=== PATIENT | male | born 1960 | race Hispanic/Latino ===

== ENCOUNTER 2016-11-23 07:49 | Inpatient (IN) | payer OTHER ==
[2016-11-23] MEDS ORDERED: NITROSTAT SL ONE (08:09)
[2016-11-23] MEDS ORDERED: TYLENOL PO ONE (08:16)
[2016-11-23] MEDS: NITROSTAT SL PRN ×2 (08:25→08:39)
--- NOTE | 2016-11-23 08:36 | Emergency Department Report ---
ED Chest Pain HPI - General Chief Complaint: Chest Pain Stated Complaint: CHEST PAIN Time Seen by Provider: 11/23/16 08:10 Source: patient Mode of arrival: Stretcher Limitations: No Limitations - History of Present Illness Initial Comments: 56-year-old male presents to the emergency department via EMS complaining of chest pain. Patient reports onset of midsternal chest pain after an argument with his at approximately 7 AM this morning. Patient describes a steady pain in the center of his chest that does not radiate. He reports associated nausea, but denies shortness of breath, dizziness, diaphoresis. He states the pain feels the same as his previous heart attack. He did take 4 baby aspirin and 1 sublingual nitroglycerin this morning. Patient states that one week ago he was admitted to [facility] in for [facility] for an NM. He received 2 cardiac stents. He states he was subsequently taken back to the [facility] for clot retrieval and had to be defibrillated 1 time. He states he was discharged from the hospital 3 days ago. There are no other complaints. MD Complaint: chest pain -: Sudden Time: 07:00 Onset: during rest Pain Location: substernal Pain Radiation: none Severity: severe Severity scale (0 -10): 10 Quality: similar to prior NM Consistency: constant Improves With: nothing Worsens With: nothing re: nausea. denies: vomting, diaphoresis, dyspnea Treatments Prior to Arrival: aspirin Aspirin use within the Past 7 Days: (1) Yes - Related Data Previous Rx's Medication Instructions Recorded Last Taken Type Acetaminophen/Codeine [Tylenol #3] 1 tab PO Q6H PRN #15 tab 11/27/15 Unknown Rx Allergies Allergy/AdvReac Type Severity Reaction Status Date / Time No Known Allergies Allergy Unverified 11/27/15 12:06 ILEANA score - Ileana Score Age > 65: (0) No Aspirin use within the Past 7 Days: (1) Yes 3 or more CAD Risk Factors: (0) No 2 or more Angina events in past 24 hrs: (0) No Known CAD with more than 50% Stenosis: (1) Yes Elevated Cardiac Markers: (1) Yes ST Deviation Greater than 0.5mm: (1) Yes ILEANA Score: 4 ED Review of Systems ROS: Stated complaint: CHEST PAIN Other details as noted in HPI Comment: All other systems reviewed and negative Cardiovascular: chest pain Gastrointestinal: nausea ED Past Medical Hx - Past Medical History Previous Medical History?: Yes Hx Hypertension: Yes Hx Heart Attack/AMI: Yes (stents) - Surgical History Hx Coronary Stent: Yes (x 19 October 2016) - Family History Family history: no significant - Social History Smoking Status: Current Every Day Smoker Substance Use Type: Alcohol - Medications Home Medications: Home Medications Medication Instructions Recorded Confirmed Last Taken Type Acetaminophen/Codeine [Tylenol #3] 1 tab PO Q6H PRN #15 tab 11/27/15 Unknown Rx ED Physical Exam - General Limitations: No Limitations General appearance: alert, in no apparent distress - Head Head exam: Present: atraumatic, normocephalic - Eye Eye exam: Present: normal appearance, PERRL, EOMI - ENT ENT exam: Present: normal exam, normal orophraynx, mucous membranes moist - Neck Neck exam: Present: normal inspection, full ROM. Absent: tenderness - Respiratory Respiratory exam: Present: normal lung sounds bilaterally. Absent: respiratory distress - Cardiovascular Cardiovascular Exam: Present: regular rate, normal rhythm, normal heart sounds - GI/Abdominal GI/Abdominal exam: Present: soft, normal bowel sounds. Absent: distended, tenderness - Extremities Exam Extremities exam: Present: normal inspection, full ROM. Absent: tenderness - Back Exam Back exam: Present: normal inspection, full ROM. Absent: tenderness - Neurological Exam Neurological exam: Present: alert, oriented X3. Absent: motor sensory deficit - Skin Skin exam: Present: warm, dry, intact ED Course Vital Signs 11/23/16 11/23/16 11/23/16 08:05 08:25 08:39 Temperature 98.1 F Pulse Rate 93 H 93 H 96 H Respiratory 26 H Rate Blood Pressure 144/94 144/94 138/91 O2 Sat by Pulse 96 Oximetry - Reevaluation(s) Reevaluation #1: 11/23/16 09:08 Further history obtained from the patient reveals that he has not been taking any of his antiplatelets medication that was prescribed and upon discharge from the other hospital. Cardiology recommendations are to administer a heparin bolus and started heparin drip. Most likely, the patient will be taken to the [facility]. Reevaluation #2: 11/23/16 09:20 Repeat EKG shows persistent elevation in 1 and aVL with depressions in 3 and aVF. - Consultations Consultation #1: 11/23/16 08:49 EKG was discussed with Dr. Shields, on-call real estate administrative assistant. He has reviewed the EKG. Code STEMI has not been activated at this time, but he states he will come see the patient in the emergency department. ED Medical Decision Making - Lab Data Result diagrams: 11/23/16 08:23 11/23/16 08:23 - EKG Data -: EKG Interpreted by Me EKG shows normal: sinus rhythm, axis, intervals, QRS complexes Rate: normal - EKG Data When compared to previous EKG there are: previous EKG unavailable 11/23/16 08:48 Less than [address] elevation in leads [address] depression leads 3 and aVF. Critical care attestation.: If time is entered above; I have spent that time in minutes in the direct care of this critically ill patient, excluding procedure time. ED Disposition Clinical Impression: Unstable angina Disposition: OP ADMITTED IP TO THIS HOSP Is pt being admited?: Yes Condition: Stable Instructions: Angina (ED) Referrals: PRIMARY CARE, [Primary Care Provider] - 3-5 Days Time of Disposition: 09:10
[2016-11-23 08:46] LABS: Basophils % (Auto) 0.9 % (0.0-1.8); Eosinophils % (Auto) 2.2 % (0.0-4.3); Hematocrit 40.8 % (35.5-45.6); Hemoglobin 13.4 gm/dl (11.8-15.2); Mean Corpuscular HGB Conc 33 % (32-34); Mean Corpuscular Hemoglobin 29 pg (28-32); Mean Corpuscular Volume 87 fl (84-94); Platelet Count 260 K/mm3 (140-440); Red Cell Distribution Width 15.5 % (13.2-15.2); White Blood Count 8.8 K/mm3 (4.5-11.0)
[2016-11-23 08:53] LABS: Anion Gap 17 mmol/L; BUN/Creatinine Ratio 11.66; Blood Urea Nitrogen 7 mg/dL (9-20); Calcium 8.6 mg/dL (8.4-10.2); Carbon Dioxide 24 mmol/L (22-30); Chloride 98.4 mmol/L (98-107); Glucose 94 mg/dL (75-100); Sodium 135 mmol/L (137-145)
[2016-11-23] MEDS ORDERED: HEPARIN 10,000 UNITS/10 ML IV ONE (09:03)
--- NOTE | 2016-11-23 09:15 | History and Physical Report ---
History of Present Illness Date of examination: 11/23/16 Date of admission: 11/23/16 Chief complaint: Left-sided chest pain since 7 AM today History of present illness: Chest pain since 7 AM today Very pleasant 56-year-old male patient with significant past medical history of coronary artery disease status post PCI with 2 stents on 11/16/2016 as well as clot removal [facility], is admitted to the emergency room with the left-sided chest pain since this morning Patient also has history of alcohol and tobacco use grades his chest pain between 5-7/10, pressure squeezing type associated with mild nausea no vomiting and shortness of breath, not associated with any radiation no aggravating or relieving factors Patient was recently discharged on 11/19/2016 from the hospital and has not been on medication since. Patient's cardiac enzymes were positive, evaluated by admitting officer and patient is scheduled for heart catheterization Denies any fever no urinary symptoms Past History Past Medical History: CAD, hypertension, hyperlipidemia Past Surgical History: PTCA Social history: lives with family, smoking, alcohol abuse, full code Family history: hypertension Medications and Allergies Allergies Allergy/AdvReac Type Severity Reaction Status Date / Time No Known Allergies Allergy Unverified 11/27/15 12:06 Home Medications Medication Instructions Recorded Confirmed Last Taken Type Acetaminophen/Codeine [Tylenol #3] 1 tab PO Q6H PRN #15 tab 11/27/15 Unknown Rx Active Meds: Active Medications Heparin Sodium/Sodium Chloride (Heparin/ 0.45% Nacl-25,000 Unit/500 Ml) 500 mls @ 20.276 mls/hr IV TITRATE SHAQ; 15 UNITS/KG/HR PRN Reason: Protocol Nitroglycerin (Nitrostat) 0.4 mg SL .Q5MIN PRN PRN Reason: Chest Pain Last Admin: 11/23/16 08:39 Dose: 0.4 mg Review of Systems Constitutional: no weight loss, no weight gain, no fever, no chills Ears, nose, mouth and throat: no nasal congestion, no nasal discharge Cardiovascular: chest pain, shortness of breath, no orthopnea, no palpitations Respiratory: shortness of breath, no cough with sputum Gastrointestinal: nausea, no abdominal pain, no vomiting Genitourinary Male: no dysuria, no hematuria Musculoskeletal: no myalgias, no arthritis Integumentary: no rash, no lesions Neurological: no parathesias, no numbness, no seizures Psychiatric: no anxiety, no depression Endocrine: no cold intolerance, no heat intolerance, no polydipsia, no polyuria Hematologic/Lymphatic: no easy bruising, no easy bleeding Allergic/Immunologic: no urticaria, no allergic rhinitis Exam - Constitutional Vitals: Temp Pulse Resp BP Pulse Ox 98.1 F 96 H 26 H 138/91 96 11/23/16 08:05 11/23/16 08:39 11/23/16 08:05 11/23/16 08:39 11/23/16 08:05 General appearance: Present: mild distress, well-nourished - EENT Eyes: Present: PERRL, EOM intact - Neck Neck: Present: supple, normal ROM - Respiratory Respiratory effort: normal Respiratory: bilateral: diminished, rales, negative: rhonchi, wheezing - Cardiovascular Rhythm: regular Heart Sounds: Present: S1 & S2 - Extremities Extremities: no ischemia, pulses intact, pulses symmetrical Peripheral Pulses: within normal limits - Abdominal General gastrointestinal: Present: soft, non-tender, non-distended, normal bowel sounds - Integumentary Integumentary: Present: clear, warm - Musculoskeletal Musculoskeletal: strength equal bilaterally - Psychiatric Psychiatric: appropriate mood/affect, cooperative - Neurologic Neurologic: CNII-XII intact, moves all extremities Results - Labs CBC & Chem 7: 11/23/16 08:23 11/23/16 08:23 Labs: Abnormal lab results 11/23/16 11/23/16 Range/Units 08:23 08:23 RDW 15.5 H (13.2-15.2) % [place] % (Auto) 13.2 H (0.0-7.3) % [place] # 1.2 H (0.0-0.8) K/mm3 Sodium 135 L (137-145) mmol/L BUN 7 L (9-20) mg/dL Creatinine 0.6 L (0.8-1.5) mg/dL Troponin T 0.272 H* (0.00-0.029) ng/mL Assessment and Plan --Non-ST elevation WI Aspirin, Plavix, beta blockers, sindy inhibitors, nitrates, heparin drip Morphine, cardiology evaluation for Heart cath, supportive care --History of coronary artery disease status post PCI 2 Continue current cardiac medications --Dyslipidemia Resume lipid-lowering medication low-cholesterol diet --Hypertension moderate control Continue current antihypertensive medications and when necessary hydralazine --Ongoing tobacco use Smoking cessation counseling done this and consequences of ongoing tobacco use explained to the patient, advised nicotine patch, spent 8 minutes counseling the patient --Alcohol abuse Patient counseled to quit alcohol intake, closely monitor for alcohol withdrawal symptoms CIWA protocol as needed, thiamine folic acid --DVT prophylaxis Patient is already on heparin drip Physical closely monitor the patient and adjust management as needed Plan of care discussed with the patient, his nurse as well as the ER physician
--- NOTE | 2016-11-23 09:29 | Consultation ---
<JOSE LUIS LECHUGA - Last Filed: 11/23/16 09:37> History of Present Illness Consult date: 11/23/16 Requesting physician: GINA VILLALPANDO Consult reason: chest pain, elevated troponin History of present illness: The patient is a 56 YO male with a past medical history significant for CAD, s/p OR with subsequent PCI (2 stents total) last , 11/16/2016, followed by "clot removal" and "defibrillation for bottom chamber quivering" on 11/17/2016, at [facility], HTN, ETOH use (drinks 12 beers daily) and tobacco use (1PPD x 45 years). He is previously unknown to our practice. He presented with c/o chest pain since 0700AM. He states that he awoke in his normal state of health this AM and cooked breakfast. Around 0700, his began to argue with him and he noted sudden onset, midsternal, nonexertional, nonradiating, constant chest pressure. The chest pain was associated with intermittent SOB and nausea. The pain is reportedly worse than the pain he experienced last week prior to his PCI. The patient reports that since discharge from [facility] last Sunday (11/19/2016), he has not taken any prescription medications - only ASA 81mg intermittently. The patient denies any aggravating or alleviating factors. He denies any palpitations, diaphoresis, vomiting, dizziness, or syncope. Past History Past Medical History: CAD, hypertension Past Surgical History: No surgical history Social history: , lives with family, smoking, alcohol abuse. denies: prescription drug abuse Family history: CAD (Mother had CABG at ~70 YOA) Medications and Allergies Allergies Allergy/AdvReac Type Severity Reaction Status Date / Time No Known Allergies Allergy Unverified 11/27/15 12:06 Home Medications Medication Instructions Recorded Confirmed Last Taken Type Acetaminophen/Codeine [Tylenol #3] 1 tab PO Q6H PRN #15 tab 11/27/15 Unknown Rx Active Meds: Active Medications Heparin Sodium/Sodium Chloride (Heparin/ 0.45% Nacl-25,000 Unit/500 Ml) 25,000 unit in 500 mls @ 20 mls/hr IV TITRATE SHAQ; 1,000 UNITS/HR PRN Reason: Protocol Nitroglycerin (Nitrostat) 0.4 mg SL .Q5MIN PRN PRN Reason: Chest Pain Last Admin: 11/23/16 08:39 Dose: 0.4 mg Review of Systems Constitutional: no weight loss, no weight gain, no fever, no chills, no sweats Ears, nose, mouth and throat: no ear pain, no nose pain, no nasal congestion, no sinus pressure, no sinus pain, no mouth pain, no dysphagia, no hoarseness, no sore throat Cardiovascular: chest pain, shortness of breath, high blood pressure, no orthopnea, no palpitations, no rapid/irregular heart beat, no edema, no syncope , no lightheadedness, no dyspnea on exertion Respiratory: shortness of breath, no cough, no dyspnea on exertion, no congestion, no wheezing, no pain Gastrointestinal: nausea, no abdominal pain, no vomiting, no diarrhea, no constipation, no change in bowel habits Genitourinary Male: no dysuria, no hematuria, no flank pain, no discharge, no urinary frequency, no urinary hesitancy Musculoskeletal: no neck stiffness, no neck pain, no shooting arm pain, no arm numbness/tingling, no low back pain, no shooting leg pain, no leg numbness/ tingling, no redness of joints, no limitation of motion Integumentary: no rash, no pruritis, no redness, no sores, no wounds Neurological: no head injury, no paralysis, no weakness, no parathesias, no numbness, no tingling, no seizures, no syncope Endocrine: no cold intolerance, no heat intolerance Hematologic/Lymphatic: no easy bruising, no easy bleeding, no lymphadenopathy Allergic/Immunologic: no urticaria, no wheezing, no persistent infections Physical Examination Last Vital Signs Temp 98.1 F 11/23/16 08:05 Pulse 96 H 11/23/16 08:39 Resp 26 H 11/23/16 08:05 BP 138/91 11/23/16 08:39 Pulse Ox 96 11/23/16 08:05 General appearance: no acute distress HEENT: Positive: PERRL, Normocephaly, Mucus Membranes Moist Neck: Positive: neck supple, trachea midline Cardiac: Positive: Reg Rate and Rhythm, S1/S2 Lungs: Positive: Normal Exam, clear to auscultation, Normal Breath Sounds Neuro: Positive: Grossly Intact, Cranial Nerve 2-12 Intact Abdomen: Positive: Unremarkable, Soft, Active Bowel Sounds. Negative: Tender Skin: Positive: Clear. Negative: Rash, Wound Musculoskeletal: No Fluid Collection, No Pain, Normal Range of Motion Extremities: Present: normal, upper extr. pulses, lower extr. pulses. Absent: edema Results 11/23/16 08:23 11/23/16 08:23 CBC 11/23/16 Range/Units 08:23 WBC 8.8 (4.5-11.0) K/mm3 RBC 4.70 (3.65-5.03) M/mm3 Hgb 13.4 (11.8-15.2) gm/dl Hct 40.8 (35.5-45.6) % Plt Count 260 (140-440) K/mm3 Lymph # 1.7 (1.2-5.4) K/mm3 [place] # 1.2 H (0.0-0.8) K/mm3 Eos # 0.2 (0.0-0.4) K/mm3 Baso # 0.1 (0.0-0.1) K/mm3 Comprehensive Metabolic Panel 11/23/16 Range/Units 08:23 Sodium 135 L (137-145) mmol/L Potassium 4.0 (3.6-5.0) mmol/L Chloride 98.4 (98-107) mmol/L Carbon Dioxide 24 (22-30) mmol/L BUN 7 L (9-20) mg/dL Creatinine 0.6 L (0.8-1.5) mg/dL Glucose 94 (75-100) mg/dL Calcium 8.6 (8.4-10.2) mg/dL - Imaging and Cardiology EKG: report reviewed EKG interpretations - Telemetry EKG Rhythm: Sinus Rhythm - EKG Sinus rhythms and dysrhythmias: sinus rhythm Repolarization changes or abnormalities: ST or T wave suggestive of ischemia Myocardial infarction: septal OR (old age or ind, anterior OR (old age or i Assessment and Plan Assessment: NSTEMI - 1st troponin 0.272. CAD, s/p PCI HTN Tobacco use / ETOH use - cessation encouraged. Noncompliance with medication regimen Plan: Initiate heparin gtt with initial bolus. Plan for coronary angiography today. Await findings. Indications, potential risks, and benefits of LHC reviewed with pt. Pt is agreeable to proceed with LHC. Consents obtained. Assessment and plan reviewed with pt at bedside. The patient has been seen in conjunction with Dr. Shields who agrees with the assessment and plan of care. <LUIS M SHIELDS R - Last Filed: 11/23/16 10:02> Medications and Allergies Active Meds: Active Medications Heparin Sodium/Sodium Chloride (Heparin/ 0.45% Nacl-25,000 Unit/500 Ml) 25,000 unit in 500 mls @ 20 mls/hr IV TITRATE SHAQ; 1,000 UNITS/HR PRN Reason: Protocol Sodium Chloride (Nacl 0.9% 500 Ml) 500 mls @ 50 mls/hr IV DIRECT SHAQ Stop: 11/23/16 19:59 Nitroglycerin (Nitrostat) 0.4 mg SL .Q5MIN PRN PRN Reason: Chest Pain Last Admin: 11/23/16 08:39 Dose: 0.4 mg Physical Examination Vital Signs Temp Pulse Resp BP Pulse Ox 98.1 F 93 H 26 H 144/94 96 11/23/16 08:05 11/23/16 08:05 11/23/16 08:05 11/23/16 08:05 11/23/16 08:05 Results 11/23/16 08:23 11/23/16 08:23 CBC 11/23/16 Range/Units 08:23 WBC 8.8 (4.5-11.0) K/mm3 RBC 4.70 (3.65-5.03) M/mm3 Hgb 13.4 (11.8-15.2) gm/dl Hct 40.8 (35.5-45.6) % Plt Count 260 (140-440) K/mm3 Lymph # 1.7 (1.2-5.4) K/mm3 [place] # 1.2 H (0.0-0.8) K/mm3 Eos # 0.2 (0.0-0.4) K/mm3 Baso # 0.1 (0.0-0.1) K/mm3 Comprehensive Metabolic Panel 11/23/16 Range/Units 08:23 Sodium 135 L (137-145) mmol/L Potassium 4.0 (3.6-5.0) mmol/L Chloride 98.4 (98-107) mmol/L Carbon Dioxide 24 (22-30) mmol/L BUN 7 L (9-20) mg/dL Creatinine 0.6 L (0.8-1.5) mg/dL Glucose 94 (75-100) mg/dL Calcium 8.6 (8.4-10.2) mg/dL
[2016-11-23] MEDS ORDERED: HEPARIN 10,000 UNITS/10 ML ONE (09:49)
[2016-11-23] MEDS ORDERED: HEPARIN/NS 5000 UNIT/500ML(CATH LAB) 1,000 ML IR ONE (09:49)
[2016-11-23] MEDS ORDERED: NITROGLYCERIN SYRINGE 0 ML ONE (09:50)
[2016-11-23] MEDS ORDERED: NACL 0.9% 500 ML 500 ML ONE (09:55)
[2016-11-23] MEDS ORDERED: CALAN ONE (09:58)
[2016-11-23] MEDS: SUBLIMAZE ONE ×2 (09:58→10:09)
[2016-11-23] MEDS: VERSED ONE ×2 (09:59→10:09)
[2016-11-23] MEDS: XYLOCAINE 2% INFILTRATI ONE ×2 (09:59→10:10)
[2016-11-23] MEDS ORDERED: HEPARIN/ 0.45% NACL-25,000 UNIT/500 ML 25,000 UNIT/500 ML BAG IV SCH (10:00)
[2016-11-23] MEDS ORDERED: NACL 0.9% 500 ML 500 ML IV SCH (10:00)
[2016-11-23 10:07] LABS: Cholesterol 157 mg/dL (50-199); HDL Cholesterol 61 mg/dL (40-59); LDL Cholesterol,Direct 72 mg/dL (50-130); Triglycerides 120 mg/dL (2-149)
[2016-11-23 10:13] LABS: INR 1.04 (0.87-1.13)
[2016-11-23] MEDS ORDERED: PLAVIX ONE ×2 (10:39→10:44)
[2016-11-23] MEDS ORDERED: ALUM-MAG HYDROX-SIMETH 200-200-20MG/5ML ONE (10:40)
[2016-11-23] MEDS ORDERED: MORPHINE ONE (11:05)
[2016-11-23] MEDS: MORPHINE IV PRN ×4 (11:09→18:30)
--- NOTE | 2016-11-23 11:15 | Event Note ---
Date: 11/23/16 S/p LHC via right radial artery which revealed patent LAD stent, occluded diagonal stent. Will continue with medical therapy at this time - heparin gtt x 24 hours, ASA 325, plavix, statin, lopressor, and ACEI. Obtain echo. Await medical records from [facility]. Tx to ICU for close observation. Cont tele. Repeat EKG in AM. If pt becomes clinically or hemodynamically unstable, will consider intervention /transfer. Amanda LECHUGA NP / DR. MELENDREZ
[2016-11-23] MEDS: ZESTRIL PO SCH (13:00)
--- NOTE | 2016-11-23 13:41 | Consultation ---
History of Present Illness Consult date: 11/23/16 Requesting physician: ARIE HORTA Reason for consult: other (NSTEMI) History of present illness: PULMONARY/CCM CONSULT NOTE (Full dictation # [id number]) Please see dictated notes for full details Past History Past Medical History: CAD, hypertension Past Surgical History: No surgical history Social history: , lives with family, smoking, alcohol abuse. denies: prescription drug abuse Family history: CAD (Mother had CABG at ~70 YOA) Medications and Allergies Allergies Allergy/AdvReac Type Severity Reaction Status Date / Time No Known Allergies Allergy Unverified 11/27/15 12:06 Home Medications Medication Instructions Recorded Confirmed Last Taken Type Acetaminophen/Codeine [Tylenol #3] 1 tab PO Q6H PRN #15 tab 11/27/15 Unknown Rx Active Meds: Active Medications Aspirin (Ecotrin) 325 mg PO QDAY SHAQ Atorvastatin Calcium (Lipitor) 80 mg PO QHS SHAQ Clopidogrel Bisulfate (Plavix) 75 mg PO QDAY SHAQ Heparin Sodium/Sodium Chloride (Heparin/ 0.45% Nacl-25,000 Unit/500 Ml) 25,000 unit in 500 mls @ 20 mls/hr IV TITRATE SHAQ; 1,000 UNITS/HR PRN Reason: Protocol Sodium Chloride (Nacl 0.9% 500 Ml) 500 mls @ 50 mls/hr IV DIRECT SHAQ Stop: 11/23/16 19:59 Lisinopril (Zestril) 10 mg PO QDAY SHAQ Metoprolol Tartrate (Lopressor) 25 mg PO BID SHAQ Morphine Sulfate (Morphine) 2 mg IV Q2H PRN PRN Reason: Pain, Moderate (4-6) Last Admin: 11/23/16 11:09 Dose: 2 mg Nitroglycerin (Nitrostat) 0.4 mg SL .Q5MIN PRN PRN Reason: Chest Pain Last Admin: 11/23/16 08:39 Dose: 0.4 mg Physical Examination Vital signs: Vital Signs Temp Pulse Resp BP Pulse Ox 98.1 F 93 H 26 H 144/94 96 11/23/16 08:05 11/23/16 08:05 11/23/16 08:05 11/23/16 08:05 11/23/16 08:05 Results - Laboratory Findings CBC and BMP: 11/23/16 08:23 11/24/16 04:12 PT/INR, D-dimer PT 13.5 Sec. (12.2-14.9) 11/23/16 09:10 INR 1.04 (0.87-1.13) 11/23/16 09:10 Abnormal lab findings: Abnormal Labs 11/23/16 11/23/16 11/23/16 08:23 08:23 10:53 RDW 15.5 [place] % (Auto) 13.2 H [place] # 1.2 H Sodium 135 L BUN 7 L Creatinine 0.6 L Troponin T 0.272 H* 0.312 H* HDL Cholesterol 61 H
--- NOTE | 2016-11-23 13:45 | Admit Criteria Form ---
Admission Criteria Documentation: CARDIOLOGY GRG Clinical Indications for Admission to Inpatient Care ( Place 'X' for any and all applicable criteria): Hospital admission is needed for appropriate care of the patient because of ANY ONE of the following (1): [ ] I. Hemodynamic instability as indicated by ALL of the following (1)(2)(3) (4)(5) [ ]a) Vital signs or other findings not as expected for chronic patient condition or baseline [ ]b) Instability indicated by ANY ONE of the following: [ ]i) Hypotension [ ]ii) Symptomatic Tachycardia unresponsive to treatment ( e.g., analgesia, fluids, sedation as indicated) [ ]iii) Inadequate perfusion indicated by ANY ONE of the following: [ ] 1) Lactic acidosis (> 2 mmol/L) [ ] 2) New abnormal capillary refill (> 3 seconds) [ ] 3) Reduced urine output [ ] 4) New altered mental status [ ]iv) Orthostatic vital sign changes unresponsive to treatment (e.g., fluids) [ ]v) IV inotropic or vasopressor medication required to maintain adequate blood pressure or perfusion [ ] II. Severe heart failure as indicated by ANY ONE of the following(17)(18) [ ]a) Respiratory distress [ ]b) Hypotension [ ]c) Anasarca (refractory to outpatient therapy) [ ]d) Cardiac arrhythmias of immediate concern [ ]e) Myocardial ischemia [ ] III. Cardiac arrhythmias or findings of immediate concern indicated by ANY ONE of the following (19)(20): [ ] a) Heart rhythms that are inherently dangerous or unstable indicated by ANY ONE of the following (21)(22)(23): [ ] i) Resuscitated ventricular fibrillation or cardiac arrest [ ] ii) Ventricular escape rhythm [ ] iii) Sustained ventricular tachycardia (30 seconds or more of ventricular rhythm at greater than 100 beats per minute) [ ] iv) Nonsustained ventricular tachycardia and ANY ONE of the following: [ ] 1) Suspected cardiac ischemia as cause or consequence of ventricular tachycardia [ ] 2) In setting of acute myocarditis [ ] b) Unstable cardiac conduction defects indicated by ANY ONE of the following(23)(24)(25) [ ] i) Type II second-degree atrioventricular block [ ]ii) Third-degree atrioventricular block [ ]iii) New-onset left bundle branch block with suspected myocardial ischemia [ ]c) Any heart rhythm and ANY ONE of the following (21)(22)(26)(27) (28) [ ] i) Continuous long-term ECG monitoring needed (e.g., initiation of drug requiring monitoring for more than 24 hours) [ ] ii) Patient has automatic implanted cardioverter defibrillator that is repeatedly firing, malfunctioning, or in need of immediate adjustment of settings beyond the scope of ambulatory or observation care [ ]d) Heart rhythms of concern due to ANY ONE of the following: [ ] i) Hypotension [ ] ii) Respiratory distress [ ] iii) Association with other significant symptoms (e.g., bradycardia with syncope or ongoing dizziness, supraventricular tachycardia with chest pain (14)(15)(17) [ ] IV. Monitoring for cardiac contusion beyond the scope of observation care needed [A](30)(31)(32) [ ] V. Surgical or device complication (e.g., valve replacement complication , pacemaker dysfunction) (35)(41)(44)(45)(46) [ ] . Inpatient palliative care needed. [B](49) Also use Inpatient Palliative Care Criteria [ ] VII. Nonbacterial thrombotic (marantic) endocarditis (36)(43)(47)(48) [ X] VIII. Cardiology condition, symptom, or finding for which emergency and observation care has failed or are not considered appropriate. [ ] IX. Acute valvular disease requiring inpatient as indicated by ANY ONE of the following (41) [ ]a) Acute valvular regurgitation (42) [ ]b) Noninfectious valvulitis (43) [ ]c) Obstructive valve thrombosis [ ]d) Paravalvular leak [ ]e) Other significant valvular disorder remaining after emergency or observation level of care (as appropriate) [ ]X. Pericardial disease requiring inpatient treatment as indicated by ANY ONE of the following (33)(34)(35)(36)(37) [ ]a) Suspected tamponade (38)(39)(40) [ ]b) Hemopericardium [ ]c) Other significant pericardial disorder remaining after emergency or observation level of care (as appropriate) [ ] XI. Cardiac ischemia beyond scope of emergency and observation care. [ ] XII. Hypertension requiring inpatient treatment as indicated by ANY ONE of the following (6)(7)(8) [ ]a) SBP greater than 220 mm Hg or DBP greater than 120 mmHg despite treatment [ ]b) SBP greater than 140 mm Hg or DBP greater than 100 mm Hg with evidence of acute end organ damage as indicated by ANY ONE of the following [ ] i) Altered mental status [ ] ii) Acute renal failure as indicated by new onset of ANY ONE of the following (9)(10)(11)(12)(13) [ ]1) 3-fold rise in serum creatinine from baseline [ ]2) Serum creatinine greater than 4 mg/dL ( 354 micromoles/L) with acute rise greater than 0.5 mg/dL (44.2 micromoles/L) [ ]3) Reduction of more than 75% in estimated glomerular filtration rate from baseline [ ]4) Estimated glomerular filtration rate less than 35 mL/min/1.73m2 (0.59 mL/sec/1.73m2) in child up to 18 years of age [ ]5) Cessation of urine output indicated by ALL of the following [ ]A. Adequate volume status [ ]B. Inadequate urine output as indicated by ANY ONE of the following [ ]a. Urine output less than 0.3 mL/kg/hr for 24 hours [ ]b. Anuria (urine output less than 0.1 mL/kg/hr) for 12 hours [ ] iii) Aortic dissection [ ] iv) Myocardial Ischemia [ ] v) Left ventricular heart failure [ ]vi) Retinal Hemorrhage [ ]vii) Other significant finding [ ]c) Hypertension in child requiring inpatient treatment as indicated by ALL of the following(14)(15)(16) [ ] i) Outpatient treatment not effective, not available, or not appropriate [ ]ii) SBP or DBP greater than 95th percentile for age [ ]iii) Evidence of acute end organ damage as indicated by ANY ONE of the following [ ]1) Altered mental status [ ]2) Acute renal failure as indicated by new onset of ANY ONE of the following(9)(10)(11)(12)(13) [ ]A. 3-fold rise in serum creatinine from baseline [ ]B. Serum creatinine greater than 4 mg/dL (354 micromoles/L) with acute rise greater than 0.5 mg/dL (44.2 micromoles/L) [ ]C. Reduction of more than 75% in estimated glomerular filtration rate from baseline [ ]D. Estimated glomerular filtration rate less than 35 mL/min/1.73m2 (0.59 mL/sec/1.73m2) in child up to 18 years of age [ ]E. Cessation of urine output indicated by ALL of the following [ ]a. Adequate volume status [ ]b. Inadequate urine output as indicated by ANY ONE of the following [ ]i) Urine output less than 0.3 mL/kg/hr for 24 hours [ ]ii) Anuria ( urine output less than 0.1 mL/kg/hr) for 12 hours [ ]3) Severe headache [ ]4) Visual disturbance [ ]5) Retinal hemorrhage [ ]6) Other significant finding [ ]XIII. Complications of transplanted heart indicated by ANY ONE of the following(61): [ ]a) Acute graft rejection requiring inpatient management (eg, intravenous immunosuppression)(62)(63) [ ]b) Acute graft heart failure indicated by ANY ONE of the following(64): [ ]i) Hemodynamic instability [ ]ii) Cardiac arrhythmias of immediate concern [ ]iii) Pulmonary edema that is very severe (eg, mechanical ventilation needed, imminent or likely, need for 100% oxygen to keep oxygen saturation above 90%) [ ]iv) Pulmonary edema that is persistent as indicated by ALL of the following: [ ]1) New need for oxygen therapy to keep oxygen saturation above 90% (or increased FiO2 need from baseline) [ ]2) Has not improved sufficiently with emergency department or observation care IV diuretics or other heart failure treatments[E] [ ]v) Altered mental status that is severe or persistent [ ]vi) Increased creatinine (new on laboratory test) with reduction of more than 50% in estimated glomerular filtration rate from baseline [ ]vii) Progressively (ongoing) rising creatinine (known from past laboratory test) with reduction of more than 25% in estimated glomerular filtration rate from baseline [ ]viii) Acute renal failure [ ]ix) Acute peripheral ischemia (eg, examination shows pulseless, cool, mottled, or cyanotic extremity) [ ]x) Pulmonary artery catheter monitoring needed [ ]xi) Other sign or symptom of heart failure requiring inpatient treatment (ie, too severe or not responsive to outpatient and observation care treatment) [ ]c) Infection requiring inpatient management (eg, Hemodynamic instability, need for intravenous antimicrobial treatment)(66)(67)(68)(69)(70) [ ]d) Cardiac allograft vasculopathy requiring inpatient management ( eg evidence of cardiac ischemia)(71) [ ]e) Other complication of transplanted heart (eg, stroke, severe pulmonary hypertension, severe valvular dysfunction) requiring inpatient management(72) The original [facility] [employer] content created by [facility] [employer] has been revised. The portions of the content which have been revised are identified through the use of italic text or in bold, and [facility] has neither reviewed nor approved the modified material. All other unmodified content is copyright [facility] [email or web address]. Please see references footnoted in the original [facility] [email or web address] edition 2016 Admission Criteria Met: Yes
[2016-11-23] MEDS ORDERED: COLACE PO PRN (15:58)
[2016-11-23] MEDS ORDERED: AMBIEN PO PRN (15:58)
[2016-11-23] MEDS: ATIVAN IV PRN (16:39)
[2016-11-23] MEDS ORDERED: ZOFRAN IV PRN (16:48)
--- NOTE | 2016-11-23 17:16 | Cardiac Catherization Report ---
CARDIAC CATHETERIZATION REPORT AND ATTEMPTED ANGIOPLASTY OF THE DIAGONAL BRANCH. The patient is a 56-year-old white gentleman who did not visit any physician up to last week ago with history of some right-sided symptoms of weakness of one year duration, which he did not get any attention, but apparently he went to [facility] last Sunday with myocardial infarction and he had stents inserted. Subsequently, on Sunday, he has to go back because he is thrombosed and they did a thrombectomy. Since that time, he was sent home and subsequently did not take any of his medications except he took aspirin this morning. He comes back with chest pain of few hours duration. The patient's chest pain is similar to the one he had the [place] before. EKG showed sinus rhythm with old anteroseptal IL, very mild ST elevations in I and aVL and ST-T changes in the inferior leads. His pain initially is 10/10, but subsequently is 6-8/10. He is having persistent chest pain, and because of recent coronary intervention with persistent chest pain, he was taken to the catheterization laboratory on an urgent basis. No family available. The patient is willing to proceed with catheterization. The patient states he has never had any medical attention in the past except last week. Only medication he took this morning was aspirin. DESCRIPTION OF PROCEDURE: The patient was taken to the catheterization laboratory in a fasting condition. Informed consent was obtained. Sterile drapes were applied. Local anesthesia was given in the right wrist area. The patient was sedated with IV Versed and fentanyl. Right radial artery access was obtained with 21-gauge arterial puncture needle. A 6-American sheath was introduced. The patient received 3000 units of heparin and 5 mg of intra-arterial verapamil. Left ventriculogram was performed in HIGUERA and MACANESE projection using hand injection followed by obtaining the angiograms of the left coronary artery in multiple views followed by angiograms of the right coronary artery. At the end of the procedure, it was decided to attempt to see if can open up the occluded diagonal stent. Cardiac catheterization findings were as follows: HEMODYNAMICS: Aortic pressure 124/79, left ventricular pressure 127/20. No gradient across the aortic valve. Right coronary artery dominant vessel arises normally from right coronary cusp in the distal part, there is a double lumen suggesting dissection versus recanalization. However, ILEANA 3 flow was noted. Distal RCA and proximal RCA without significant disease. Left coronary artery: Left main without significant disease. LAD shows widely patent stent in the proximal part and also there is a large diagonal that appears to be occluded with only stump being visualized. This is a stent that is jailed from the LAD stent. Mid and distal LAD without significant disease. Circumflex artery and its branches show only mild disease. Collaterals none. Left ventriculogram done in HIGUERA and MACANESE projection shows diffuse hypokinesis including inferior wall, only basal parts are moving well. Overall, ejection fraction was felt to be around 30-35%. There is apical akinesis noted. End diastolic pressure is 20 mmHg. FINAL IMPRESSION: Moderate LV dysfunction, ejection fraction 30-35% with inferior wall and anterior wall marked hypokinesis. There is a patent stent in the proximal LAD and a jailed stent of the proximal diagonal branch, which is occluded, only stump being visualized. The mid and distal LAD without significant disease. The patient has ILEANA 3 flow in the RCA, dominant vessel, even though there is suggestion of a dissection area in the distal part. Circumflex without significant disease. The patient is having chest pain with recently inserted stents. The patient had intervention done again after his post intervention 2 days later with thrombectomy. At this time, the LAD stent is widely patent and will attempt to see if we can open the diagonal stent. Intervention procedure of the diagonal: The patient has indwelling 6-American sheath in the right radial artery. The patient received IV heparin as anticoagulant. EBU 3.75 guiding catheter was advanced and engaged the left coronary artery. A 0.014 inch [place] XT guidewire was used to enter the diagonal. It enters the proximal part of the diagonal; however, could not enter the mid and distal part of the diagonal, it appears that is going through the stent struts. The stent in the diagonal appears to be jailed from the proximal LAD stent and intervention of this vessel at this point was felt to be high risk (with underlyingLV dysfunction being in the range of 30 %-35%) , It was felt appropriate to abort the procedure , considering the risk of deforming proximal LAD stent and patient already had acute thrombosis few days ago. If the patient continues to have chest pain, would refer to tertiary care center for intervention of the jailed diagonal, also consideration should be given for intervention of the RCA. The patient is not taking his medications. We will start him on loading dose of Plavix, aspirin, beta sorin, AMANUEL inhibitor and statin. We will also start him on IV heparin. He will be monitored in CCU. The patient has been hemodynamically stable. Findings were explained to the patient. No family members available. JOB# [id number] MINAL[employer]O [employer]
[2016-11-23] MEDS: NITRO-BID 2% TP SCH ×2 (19:59→22:00)
[2016-11-23] MEDS: LOPRESSOR PO SCH (22:28)
[2016-11-23] MEDS: PEPCID PO SCH (22:28)
[2016-11-24] MEDS: MORPHINE IV PRN ×2 (02:22→07:48)
[2016-11-24] MEDS: ATIVAN IV PRN (02:23)
[2016-11-24 05:15] LABS: Creatine Kinase MB 163.2 ng/mL (0.0-4.0)
[2016-11-24 05:16] LABS: Anion Gap 15 mmol/L; Blood Urea Nitrogen 7 mg/dL (9-20); Calcium 8.2 mg/dL (8.4-10.2); Carbon Dioxide 26 mmol/L (22-30); Creatine Kinase 1488 units/L (55-170); Glucose 108 mg/dL (75-100); Potassium 4.4 mmol/L (3.6-5.0); Sodium 135 mmol/L (137-145)
[2016-11-24] MEDS: NITRO-BID 2% TP SCH ×3 (05:36→21:53)
--- NOTE | 2016-11-24 09:24 | Progress Note ---
Assessment and Plan Assessment: NSTEMI CAD, s/p PCI ICMP HTN Tobacco use / ETOH use - cessation encouraged. H/o ? CVA year ago - per pt report, he did not seek any treatment for transient right-sided weakness and right eye visual disturbances; further eval/management per primary. Noncompliance with medication regimen Anxiety Plan: s/p [facility] 11/23/2016 -> EF 30 - 35%, patent proximal LAD stent, jailed stent of the proximal diagonal branch which is occluded. Case discussed with Dr. Villarreal. Continue current medical management, including heparin gtt. If pt continues to have chest pain or becomes unstable, will refer to tertiary care center for intervention. Pt may tx to tele from cardiology standpoint. Cont close observation. PRN xanax for anxiety. Await echo. Assessment and plan reviewed with pt at bedside. The patient has been seen in conjunction with Dr. Shields who agrees with the assessment and plan of care. Subjective Date of service: 11/24/16 Principal diagnosis: NSTEMI Interval history: Pt resting comfortably in bed, denies any current complaints. States he experienced some mild midsternal chest pain overnight. EKG this AM reveals NSR, NAF. Objective Last Vital Signs Temp 98.5 F 11/24/16 08:00 Pulse 82 11/24/16 08:00 Resp 17 11/24/16 08:00 BP 101/69 11/24/16 08:00 Pulse Ox 97 11/24/16 08:00 - Physical Examination HEENT: Positive: PERRL, Normocephaly, Mucus Membranes Moist Neck: Positive: neck supple, trachea midline Cardiac: Positive: Reg Rate and Rhythm, S1/S2 Lungs: Positive: Normal Exam, clear to auscultation, Normal Breath Sounds Neuro: Positive: Grossly Intact, Cranial Nerve 2-12 Intact Abdomen: Positive: Unremarkable, Soft, Active Bowel Sounds. Negative: Tender Skin: Positive: Clear. Negative: Rash, Wound Musculoskeletal: No Fluid Collection, No Pain, Normal Range of Motion Extremities: Present: normal, upper extr. pulses, lower extr. pulses. Absent: edema - Labs and Meds Cardiac Enzymes 11/24/16 Range/Units 04:12 CK-MB (CK-2) 163.2 H (0.0-4.0) ng/mL Coagulation 11/23/16 Range/Units 09:10 PT 13.5 (12.2-14.9) Sec. INR 1.04 (0.87-1.13) APTT 25.0 (24.2-36.6) Sec. Lipids 11/23/16 Range/Units 08:23 Triglycerides 120 (2-149) mg/dL Cholesterol 157 (50-199) mg/dL HDL Cholesterol 61 H (40-59) mg/dL Cholesterol/HDL Ratio 2.57 % Comprehensive Metabolic Panel 11/24/16 Range/Units 04:12 Sodium 135 L (137-145) mmol/L Potassium 4.4 (3.6-5.0) mmol/L Chloride 98.0 (98-107) mmol/L Carbon Dioxide 26 (22-30) mmol/L BUN 7 L (9-20) mg/dL Creatinine 0.4 L (0.8-1.5) mg/dL Glucose 108 H (75-100) mg/dL Calcium 8.2 L (8.4-10.2) mg/dL - Imaging and Cardiology EKG: report reviewed Echo: pending - Telemetry EKG Rhythm: Sinus Rhythm - EKG Sinus rhythms and dysrhythmias: sinus rhythm
[2016-11-24] MEDS: HABITROL TD SCH (10:31)
[2016-11-24] MEDS: VITAMIN B-1 PO SCH (10:31)
[2016-11-24] MEDS: PEPCID PO SCH ×2 (10:31→21:53)
[2016-11-24] MEDS: ECOTRIN PO SCH (10:31)
[2016-11-24] MEDS: FOLVITE PO SCH (10:31)
[2016-11-24] MEDS: PLAVIX PO SCH (10:31)
[2016-11-24] MEDS: ZESTRIL PO SCH (10:33)
[2016-11-24] MEDS: LOPRESSOR PO SCH ×2 (10:33→22:03)
--- NOTE | 2016-11-24 10:44 | Progress Note ---
Assessment and Plan Assessment and plan: --Non-ST elevation WI Status post heart cath, continue current cardiac medications DC heparin drip --History of coronary artery disease status post PCI Patient advised to comply with medications Continue aspirin and Plavix beta blockers AMANUEL inhibitor as nitrates statins --Dyslipidemia stable on statin --Hypertension moderate control Continue current antihypertensives --Ongoing tobacco use smoking cessation counseling done advised nicotine patch --Alcohol abuse counseling done patient advised to quit alcohol intake Closely monitor for any alcohol withdrawal symptoms --DVT prophylaxis with Lovenox --Patient is stable to be transferred out of ICU Ambulate as tolerated Possible discharge home tomorrow if stable Cardiology evaluation and recommendations noted and appreciated Plan of care discussed with the patient and his nurse cardiology nurse practitioner as well as the case management History Interval history: patient Seen and evaluated medical records reviewed Feels better denies any chest pain or shortness of breath Alert awake oriented 3 not in acute distress vital signs reviewed Hospitalist Physical - Constitutional Vitals: Temp Pulse Resp BP Pulse Ox 98.5 F 81 21 96/63 96 11/24/16 08:00 11/24/16 10:33 11/24/16 10:00 11/24/16 10:33 11/24/16 10:00 General appearance: Present: no acute distress, well-nourished - EENT Eyes: Present: PERRL, EOM intact - Neck Neck: Present: supple, normal ROM - Respiratory Respiratory effort: normal Respiratory: bilateral: diminished, negative: rales, rhonchi, wheezing - Cardiovascular Rhythm: regular Heart Sounds: Present: S1 & S2 - Extremities Extremities: no ischemia, pulses intact, pulses symmetrical Peripheral Pulses: within normal limits - Abdominal General gastrointestinal: soft, non-tender, non-distended, normal bowel sounds - Integumentary Integumentary: Present: clear, warm - Psychiatric Psychiatric: appropriate mood/affect, cooperative - Neurologic Neurologic: CNII-XII intact, moves all extremities Results - Labs CBC & Chem 7: 11/23/16 08:23 11/24/16 04:12 Labs: Laboratory Last Values WBC 8.8 K/mm3 (4.5-11.0) 11/23/16 08:23 RBC 4.70 M/mm3 (3.65-5.03) 11/23/16 08:23 Hgb 13.4 gm/dl (11.8-15.2) 11/23/16 08:23 Hct 40.8 % (35.5-45.6) 11/23/16 08:23 MCV 87 fl (84-94) 11/23/16 08:23 MCH 29 pg (28-32) 11/23/16 08:23 MCHC 33 % (32-34) 11/23/16 08:23 RDW 15.5 % (13.2-15.2) H 11/23/16 08:23 Plt Count 260 K/mm3 (140-440) 11/23/16 08:23 Lymph % (Auto) 19.0 % (13.4-35.0) 11/23/16 08:23 Hinds % (Auto) 13.2 % (0.0-7.3) H 11/23/16 08:23 Eos % (Auto) 2.2 % (0.0-4.3) 11/23/16 08:23 Baso % (Auto) 0.9 % (0.0-1.8) 11/23/16 08:23 Lymph # 1.7 K/mm3 (1.2-5.4) 11/23/16 08:23 Hinds # 1.2 K/mm3 (0.0-0.8) H 11/23/16 08:23 Eos # 0.2 K/mm3 (0.0-0.4) 11/23/16 08:23 Baso # 0.1 K/mm3 (0.0-0.1) 11/23/16 08:23 Seg Neutrophils % 64.7 % (40.0-70.0) 11/23/16 08:23 Seg Neutrophils # 5.7 K/mm3 (1.8-7.7) 11/23/16 08:23 PT 13.5 Sec. (12.2-14.9) 11/23/16 09:10 INR 1.04 (0.87-1.13) 11/23/16 09:10 APTT 25.0 Sec. (24.2-36.6) 11/23/16 09:10 Heparin Anti-Xa Level < 0.10 U.I./ml (0.3-0.7) L 11/24/16 04:12 Sodium 135 mmol/L (137-145) L 11/24/16 04:12 Potassium 4.4 mmol/L (3.6-5.0) 11/24/16 04:12 Chloride 98.0 mmol/L (98-107) 11/24/16 04:12 Carbon Dioxide 26 mmol/L (22-30) 11/24/16 04:12 Anion Gap 15 mmol/L 11/24/16 04:12 BUN 7 mg/dL (9-20) L 11/24/16 04:12 Creatinine 0.4 mg/dL (0.8-1.5) L 11/24/16 04:12 Estimated GFR > 60 ml/min 11/24/16 04:12 BUN/Creatinine Ratio 17.50 % 11/24/16 04:12 Glucose 108 mg/dL (75-100) H 11/24/16 04:12 Calcium 8.2 mg/dL (8.4-10.2) L 11/24/16 04:12 Total Creatine Kinase 1488 units/L (55-170) H 11/24/16 04:12 CK-MB (CK-2) 163.2 ng/mL (0.0-4.0) H 11/24/16 04:12 CK-MB (CK-2) Rel Index 10.9 (0-4) H 11/24/16 04:12 Troponin T 2.370 ng/mL (0.00-0.029) H* D 11/24/16 04:12 Triglycerides 120 mg/dL (2-149) 11/23/16 08:23 Cholesterol 157 mg/dL (50-199) 11/23/16 08:23 LDL Cholesterol Direct 72 mg/dL (50-130) 11/23/16 08:23 HDL Cholesterol 61 mg/dL (40-59) H 11/23/16 08:23 Cholesterol/HDL Ratio 2.57 % 11/23/16 08:23
--- NOTE | 2016-11-24 11:23 | Progress Note ---
Assessment and Plan - Patient Problems (1) NSTEMI (non-ST elevated myocardial infarction) Current Visit: Yes Status: Acute Plan to address problem: - doing well clinically - continue IV heparin - may need repeat cath - management per cardiology (2) Unstable angina Current Visit: Yes Status: Acute Plan to address problem: - as above - prn analgesia (3) Discharge planning issues Current Visit: Yes Status: Acute Plan to address problem: ....transfer to telemetry if OK with cardiology Subjective Date of service: 11/24/16 Principal diagnosis: NSTEMI Interval history: Seen and examined at bedside; 24 hour events reviewed; nursing and respiratory care staff consulted; no adverse overnight events reported to me; resting in bed; remains on IV heparin; denies acute chest pains or increased SOB ; No N/V/F/C Objective Vital Signs - 12hr 11/23/16 11/23/16 11/23/16 23:30 23:40 23:50 Temperature Pulse Rate 84 78 75 Pulse Rate [ From Monitor] Respiratory 16 21 20 Rate Blood Pressure 98/54 98/54 98/54 O2 Sat by Pulse 95 94 93 Oximetry 11/24/16 11/24/16 11/24/16 00:00 00:10 00:20 Temperature Pulse Rate 74 79 78 Pulse Rate [ From Monitor] Respiratory 18 20 20 Rate Blood Pressure 99/65 99/65 99/65 O2 Sat by Pulse 93 88 87 Oximetry 11/24/16 11/24/16 11/24/16 00:30 00:40 00:50 Temperature 98.4 F Pulse Rate 78 77 78 Pulse Rate [ From Monitor] Respiratory 22 19 22 Rate Blood Pressure 99/65 99/65 99/65 O2 Sat by Pulse 87 87 87 Oximetry 11/24/16 11/24/16 11/24/16 01:00 01:10 01:20 Temperature Pulse Rate 78 84 91 H Pulse Rate [ From Monitor] Respiratory 21 14 15 Rate Blood Pressure 100/63 100/63 100/63 O2 Sat by Pulse 87 91 91 Oximetry 11/24/16 11/24/16 11/24/16 01:30 01:40 01:50 Temperature Pulse Rate 78 78 77 Pulse Rate [ From Monitor] Respiratory 22 19 18 Rate Blood Pressure 100/63 100/63 100/63 O2 Sat by Pulse 92 93 93 Oximetry 11/24/16 11/24/16 11/24/16 02:00 02:10 02:20 Temperature Pulse Rate 76 80 83 Pulse Rate [ From Monitor] Respiratory 17 17 18 Rate Blood Pressure 95/63 95/63 95/63 O2 Sat by Pulse 95 95 94 Oximetry 11/24/16 11/24/16 11/24/16 02:22 02:30 02:35 Temperature Pulse Rate 78 76 Pulse Rate [ From Monitor] Respiratory 14 22 Rate Blood Pressure 95/63 O2 Sat by Pulse 92 93 Oximetry 11/24/16 11/24/16 11/24/16 02:40 02:50 02:52 Temperature Pulse Rate 79 81 Pulse Rate [ From Monitor] Respiratory 22 21 14 Rate Blood Pressure 95/63 95/63 O2 Sat by Pulse 91 92 Oximetry 11/24/16 11/24/16 11/24/16 03:00 03:10 03:20 Temperature Pulse Rate 79 82 80 Pulse Rate [ From Monitor] Respiratory 21 19 19 Rate Blood Pressure 95/63 95/63 95/63 O2 Sat by Pulse 92 93 93 Oximetry 11/24/16 11/24/16 11/24/16 03:30 03:40 03:50 Temperature Pulse Rate 80 80 80 Pulse Rate [ From Monitor] Respiratory 18 20 19 Rate Blood Pressure 95/63 95/63 95/63 O2 Sat by Pulse 93 94 95 Oximetry 11/24/16 11/24/16 11/24/16 03:55 04:00 04:10 Temperature 99.0 F Pulse Rate 87 78 Pulse Rate [ From Monitor] Respiratory 18 19 21 Rate Blood Pressure 110/72 110/72 O2 Sat by Pulse 93 95 96 Oximetry 11/24/16 11/24/16 11/24/16 04:20 04:30 04:40 Temperature Pulse Rate 78 75 75 Pulse Rate [ From Monitor] Respiratory 23 21 20 Rate Blood Pressure 110/72 110/72 110/72 O2 Sat by Pulse 94 95 94 Oximetry 11/24/16 11/24/16 11/24/16 04:50 05:00 05:10 Temperature Pulse Rate 76 77 77 Pulse Rate [ From Monitor] Respiratory 19 21 19 Rate Blood Pressure 110/72 118/71 118/71 O2 Sat by Pulse 95 94 94 Oximetry 11/24/16 11/24/16 11/24/16 05:20 05:30 05:36 Temperature Pulse Rate 78 91 H 89 Pulse Rate [ From Monitor] Respiratory 18 14 Rate Blood Pressure 118/71 118/71 118/71 O2 Sat by Pulse 96 97 Oximetry 11/24/16 11/24/16 11/24/16 05:40 05:50 06:00 Temperature Pulse Rate 83 85 80 Pulse Rate [ From Monitor] Respiratory 19 15 20 Rate Blood Pressure 118/71 118/71 111/79 O2 Sat by Pulse 95 94 96 Oximetry 11/24/16 11/24/16 11/24/16 06:10 06:20 06:30 Temperature Pulse Rate 83 82 79 Pulse Rate [ From Monitor] Respiratory 17 21 20 Rate Blood Pressure 111/79 111/79 111/79 O2 Sat by Pulse 95 96 95 Oximetry 11/24/16 11/24/16 11/24/16 06:40 06:50 07:00 Temperature Pulse Rate 77 79 77 Pulse Rate [ From Monitor] Respiratory 20 22 20 Rate Blood Pressure 111/79 111/79 95/64 O2 Sat by Pulse 95 96 96 Oximetry 11/24/16 11/24/16 11/24/16 07:10 07:20 07:30 Temperature Pulse Rate 80 79 79 Pulse Rate [ From Monitor] Respiratory 10 L 21 21 Rate Blood Pressure 95/64 95/64 95/64 O2 Sat by Pulse 97 95 94 Oximetry 11/24/16 11/24/16 11/24/16 07:40 07:50 07:55 Temperature Pulse Rate 81 93 H Pulse Rate [ 84 From Monitor] Respiratory 13 19 16 Rate Blood Pressure 95/64 95/64 O2 Sat by Pulse 96 96 96 Oximetry 11/24/16 11/24/16 11/24/16 08:00 08:10 08:20 Temperature 98.5 F Pulse Rate 82 100 H 79 Pulse Rate [ From Monitor] Respiratory 17 13 22 Rate Blood Pressure 101/69 101/69 101/69 O2 Sat by Pulse 97 97 98 Oximetry 11/24/16 11/24/16 11/24/16 08:30 08:40 08:50 Temperature Pulse Rate 83 88 90 Pulse Rate [ From Monitor] Respiratory 21 16 21 Rate Blood Pressure 96/67 96/67 96/67 O2 Sat by Pulse 97 97 97 Oximetry 11/24/16 11/24/16 11/24/16 09:00 09:10 09:20 Temperature Pulse Rate 81 81 83 Pulse Rate [ From Monitor] Respiratory 21 19 22 Rate Blood Pressure 83/54 83/54 83/54 O2 Sat by Pulse 96 97 96 Oximetry 11/24/16 11/24/16 11/24/16 09:30 09:40 09:50 Temperature Pulse Rate 91 H 91 H 93 H Pulse Rate [ From Monitor] Respiratory 14 18 11 L Rate Blood Pressure 83/54 83/54 83/54 O2 Sat by Pulse 97 97 96 Oximetry 11/24/16 11/24/16 10:00 10:33 Temperature Pulse Rate 80 79 Pulse Rate [ From Monitor] Respiratory 21 Rate Blood Pressure 88/56 96/63 O2 Sat by Pulse 96 Oximetry Constitutional: no acute distress, alert Eyes: non-icteric ENT: oropharynx moist Neck: supple, no lymphadenopathy Effort: normal Ascultation: Bilateral: clear Cardiovascular: regular rate and rhythm Gastrointestinal: normoactive bowel sounds, soft, non-tender, non-distended Integumentary: normal Extremities: no cyanosis, no edema, pink and warm, pulses normal, no ischemia or petechiae Neurologic: normal mental status, non-focal exam, pupils equal and round, motor strength normal and Psychiatric: mood appropriate, affect normal CBC and BMP: 11/25/16 04:24 11/24/16 04:12 ABG, PT/INR, D-dimer: PT/INR, D-dimer PT 13.5 Sec. (12.2-14.9) 11/23/16 09:10 INR 1.04 (0.87-1.13) 11/23/16 09:10 Abnormal lab findings: Abnormal Labs 11/23/16 11/23/16 11/23/16 08:23 08:23 10:53 RDW 15.5 H [place] % (Auto) 13.2 H [place] # 1.2 H Heparin Anti-Xa Level Sodium 135 L BUN 7 L Creatinine 0.6 L Glucose Calcium Total Creatine Kinase CK-MB (CK-2) CK-MB (CK-2) Rel Index Troponin T 0.272 H* 0.312 H* HDL Cholesterol 61 H 11/23/16 11/23/16 11/23/16 14:03 23:29 23:29 RDW [place] % (Auto) [place] # Heparin Anti-Xa Level < 0.10 L Sodium BUN Creatinine Glucose Calcium Total Creatine Kinase CK-MB (CK-2) CK-MB (CK-2) Rel Index Troponin T 0.587 H* D 1.820 H* D HDL Cholesterol 11/24/16 11/24/16 04:12 04:12 RDW [place] % (Auto) [place] # Heparin Anti-Xa Level < 0.10 L Sodium 135 L BUN 7 L Creatinine 0.4 L Glucose 108 H Calcium 8.2 L Total Creatine Kinase 1488 H CK-MB (CK-2) 163.2 H CK-MB (CK-2) Rel Index 10.9 H Troponin T 2.370 H* D HDL Cholesterol
[2016-11-24] MEDS: XANAX PO PRN (17:46)
[2016-11-24] MEDS: DUONEB 0.5 MG-3 MG/3 ML SOLN IH SCH (20:31)
[2016-11-24] MEDS: HEPARIN/ 0.45% NACL-25,000 UNIT/500 ML 25,000 UNIT/500 ML BAG IV SCH (21:59)
[2016-11-24] MEDS ORDERED: LOVENOX SUB-Q SCH (22:00)
[2016-11-24 23:14] LABS: Hematocrit 38.2 % (35.5-45.6); Hemoglobin 12.4 gm/dl (11.8-15.2)
--- NOTE | 2016-11-25 01:06 | Consultation ---
CONSULTING PHYSICIAN: Vianey Maria MD REASON FOR CONSULTATION: ST elevation UT. CHIEF COMPLAINT AND HISTORY OF PRESENT ILLNESS: The patient is a 56-year-old male with past medical history significant for coronary artery disease, status post PCI with 2 stents just recently on 11/16/2016, as well as a clot removal at [facility] in [place], [place]. He came to the Emergency Room complaining of left-sided chest pain since this morning. He had nausea. He denied any significant vomiting. He describes his chest pain as . Because of his overall cardiac history and positive cardiac enzymes, he was seen by Cardiology and a decision was made to take him to the chemistry lab instructor. It seems like during the chemistry lab instructor, if I believe correctly RCA lesion or clot was noted that they could not bypass at that time and post-procedure, a decision was made to admit him to the Intensive Care Unit with close observation while further planning and evaluation was being done with the possibility of a repeat heart catheterization with bypass of the lesion or a possible transfer. When I stopped by to see him, he was resting in bed, feeling a little bit better than he was earlier in the day. No more acute chest pain. No nausea. Denied palpitations. He does have a 10+ pack year tobacco smoking history. He tells me he is trying to quit that now. That really is as much of the history of presentation as I have. PAST MEDICAL HISTORY: Coronary artery disease, hypertension, and hyperlipidemia. PAST SURGICAL HISTORY: He has had PCIs in the past with stenting. MEDICATIONS: He was on at the time I stopped by to see him, according to the medication administration record included the following: Xanax 0.25 mg p.o. q.8h. p.r.n. anxiety, aspirin 325 mg p.o. daily, Lipitor 80 mg p.o. at bedtime, Plavix 75 mg p.o. daily, docusate sodium 100 mg p.o. b.i.d. p.r.n., Pepcid 20 mg p.o. b.i.d., folic acid 1 mg p.o. daily. He was going on a IV heparin drip, I believe 1000 units per hour, baseline rate with titration. Lisinopril 10 mg p.o. daily, Ativan 1 mg IV q.4h. p.r.n. agitation, metoprolol 25 mg p.o. b.i.d., morphine 2 mg IV q.12h. p.r.n. moderate pain, nicotine 14 mg per day patch, p.r.n. Nitrostat, nitroglycerin 2% one inch topical q.8h. scheduled, Zofran 4 mg IV q.4h. p.r.n. nausea and vomiting, Percocet 5/325 mg p.o. q.6h. p.r.n. moderate pain, thiamine 100 mg p.o. daily, Ambien 5 mg p.o. at bedtime p.r.n. ALLERGIES: No known drug allergies. DIET: Well-built gentleman. Denies significant weight loss or gain in the preceding few weeks to months. FAMILY AND SOCIAL HISTORY: Lives in the community with family, apparently has a history of alcohol abuse also, as well as 10+ pack year tobacco smoking history. Denied illicit drug use or abuse. REVIEW OF SYSTEMS: No loss of consciousness. He had near syncope. No new onset seizures. No new onset focal weakness. Denies gross hematochezia or melena. Denies gross hematuria or dysuria. No hematemesis. No hemoptysis. No palpitations. Complete review of systems obtained. Pertinent positives and/or negatives as in body of history above, otherwise they are noncontributory. PHYSICAL EXAMINATION: VITAL SIGNS: At presentation, he was afebrile, temperature 98.1, pulse was 93, respiratory rate was 26 at admission, and blood pressure was 144/94. Oxygen sats were 96%. He was on 2 liters nasal cannula at the time I saw him. HEAD, EYES, EARS, NOSE, AND THROAT: Pupils are not equal, the right pupil is about 1 mm larger than the left at 4-5 mm on the right and about 3-4 on the left. He tells me that his chronic condition has been evaluated outpatient. Extraocular muscle movements are intact. Grossly, no palpable lymph nodes in the supraclavicular or submandibular lymph node chains. LUNGS: Auscultation of both lung cisneros showed bilateral expiratory wheezing, occasional basilar rales. HEART: Heart sounds 1 and 2 were heard, regular rate and rhythm at the time of my evaluation. ABDOMEN: Soft, full, bowel sounds are positive, nontender. EXTREMITIES: Without overt digital clubbing, cyanosis, or pedal edema. NEUROLOGIC: The exam was grossly nonfocal. LABORATORY DATA: From my review are as follows: Admission white cell count 8.8 with hemoglobin of 13.4, hematocrit of 40.8, and platelet count of 260. INR 1.04. Serum sodium was 135, potassium 4.0, chloride 98, bicarbonate 24, BUN 7, creatinine 0.6, glucose 94. Troponin was 0.312 at admission, it is still trending upwards, is 2.37 at this point. LDL cholesterol was 72. I do not have any radiographic studies for review. ASSESSMENT AND PLAN: We have a middle-aged gentleman with an acute according to the records, it seems it is actually unstable angina and non-ST elevation [place], that has a lesion, that is in bothersome location and does need to be watched very closely. I have discussed with Cardiology and the plan as mentioned is in the body of the history above. Respiratory bueno, we will continue supplemental oxygen, 2 liters nasal cannula while Cardiology evaluation is going, the IV heparin will continue. We will continue on GI prophylaxis. Flu and pneumonia vaccination will be per protocol. I will go ahead and schedule bronchodilator treatments for the wheezing. Flu and pneumonia vaccination will be per protocol. Thank you very much for the consult. We will follow along and make further recommendations as the picture progresses/becomes clearer. JOB# [id number] DESTIN/TITO
[2016-11-25 05:20] LABS: Hematocrit 39.3 % (35.5-45.6); Hemoglobin 12.8 gm/dl (11.8-15.2)
[2016-11-25] MEDS: HEPARIN/ 0.45% NACL-25,000 UNIT/500 ML 25,000 UNIT/500 ML BAG IV SCH (05:35)
[2016-11-25] MEDS: NITRO-BID 2% TP SCH ×3 (05:38→21:16)
--- NOTE | 2016-11-25 07:56 | Progress Note ---
Assessment and Plan Assessment and plan: --Non-ST elevation OK Status post heart cath, widely open LAD stent, continue current cardiac medications, And heparin drip --History of coronary artery disease status post PCI Patient advised to comply with medications Continue aspirin and Plavix beta blockers AMANUEL inhibitor as nitrates statins --Dyslipidemia stable on statin --Hypertension moderate control Continue current antihypertensives --Ongoing tobacco use smoking cessation counseling done advised nicotine patch --Alcohol abuse counseling done patient advised to quit alcohol intake Closely monitor for any alcohol withdrawal symptoms --DVT prophylaxis with Lovenox --Patient is stable to be transferred out of ICU Ambulate as tolerated Cardiology evaluation and recommendations noted and appreciated Plan of care discussed with the patient and his nurse Possible discharge home in 1-2 days if cleared by cardiology History Interval history: Patient feels better no new complaints Denies chest pain shortness of breath Alert awake oriented 3 not in acute distress Vital signs reviewed stable Hospitalist Physical - Constitutional Vitals: Temp Pulse Resp BP Pulse Ox 97.3 F L 72 19 90/55 97 11/25/16 07:52 11/25/16 05:41 11/25/16 05:41 11/25/16 05:40 11/25/16 05:40 General appearance: Present: no acute distress, well-nourished - EENT Eyes: Present: PERRL, EOM intact - Neck Neck: Present: supple, normal ROM - Respiratory Respiratory effort: normal Respiratory: negative: rales, rhonchi, wheezing - Cardiovascular Rhythm: regular Heart Sounds: Present: S1 & S2 - Extremities Extremities: no ischemia, pulses intact, pulses symmetrical - Abdominal General gastrointestinal: soft, non-tender, non-distended, normal bowel sounds - Integumentary Integumentary: Present: clear, warm - Psychiatric Psychiatric: appropriate mood/affect, cooperative - Neurologic Neurologic: CNII-XII intact, moves all extremities Results - Labs CBC & Chem 7: 11/25/16 04:24 11/24/16 04:12 Labs: Laboratory Last Values WBC 8.8 K/mm3 (4.5-11.0) 11/23/16 08:23 RBC 4.70 M/mm3 (3.65-5.03) 11/23/16 08:23 Hgb 12.8 gm/dl (11.8-15.2) 11/25/16 04:24 Hct 39.3 % (35.5-45.6) 11/25/16 04:24 MCV 87 fl (84-94) 11/23/16 08:23 MCH 29 pg (28-32) 11/23/16 08:23 MCHC 33 % (32-34) 11/23/16 08:23 RDW 15.5 % (13.2-15.2) H 11/23/16 08:23 Plt Count 245 K/mm3 (140-440) 11/25/16 04:24 Lymph % (Auto) 19.0 % (13.4-35.0) 11/23/16 08:23 [place] % (Auto) 13.2 % (0.0-7.3) H 11/23/16 08:23 Eos % (Auto) 2.2 % (0.0-4.3) 11/23/16 08:23 Baso % (Auto) 0.9 % (0.0-1.8) 11/23/16 08:23 Lymph # 1.7 K/mm3 (1.2-5.4) 11/23/16 08:23 [place] # 1.2 K/mm3 (0.0-0.8) H 11/23/16 08:23 Eos # 0.2 K/mm3 (0.0-0.4) 11/23/16 08:23 Baso # 0.1 K/mm3 (0.0-0.1) 11/23/16 08:23 Seg Neutrophils % 64.7 % (40.0-70.0) 11/23/16 08:23 Seg Neutrophils # 5.7 K/mm3 (1.8-7.7) 11/23/16 08:23 PT 13.5 Sec. (12.2-14.9) 11/23/16 09:10 INR 1.04 (0.87-1.13) 11/23/16 09:10 APTT 25.0 Sec. (24.2-36.6) 11/23/16 09:10 Heparin Anti-Xa Level < 0.10 U.I./ml (0.3-0.7) L 11/25/16 04:24 Sodium 135 mmol/L (137-145) L 11/24/16 04:12 Potassium 4.4 mmol/L (3.6-5.0) 11/24/16 04:12 Chloride 98.0 mmol/L (98-107) 11/24/16 04:12 Carbon Dioxide 26 mmol/L (22-30) 11/24/16 04:12 Anion Gap 15 mmol/L 11/24/16 04:12 BUN 7 mg/dL (9-20) L 11/24/16 04:12 Creatinine 0.4 mg/dL (0.8-1.5) L 11/24/16 04:12 Estimated GFR > 60 ml/min 11/24/16 04:12 BUN/Creatinine Ratio 17.50 % 11/24/16 04:12 Glucose 108 mg/dL (75-100) H 11/24/16 04:12 Calcium 8.2 mg/dL (8.4-10.2) L 11/24/16 04:12 Total Creatine Kinase 1488 units/L (55-170) H 11/24/16 04:12 CK-MB (CK-2) 163.2 ng/mL (0.0-4.0) H 11/24/16 04:12 CK-MB (CK-2) Rel Index 10.9 (0-4) H 11/24/16 04:12 Troponin T 2.370 ng/mL (0.00-0.029) H* D 11/24/16 04:12 Triglycerides 120 mg/dL (2-149) 11/23/16 08:23 Cholesterol 157 mg/dL (50-199) 11/23/16 08:23 LDL Cholesterol Direct 72 mg/dL (50-130) 11/23/16 08:23 HDL Cholesterol 61 mg/dL (40-59) H 11/23/16 08:23 Cholesterol/HDL Ratio 2.57 % 11/23/16 08:23
[2016-11-25] MEDS: DUONEB 0.5 MG-3 MG/3 ML SOLN IH SCH ×3 (09:10→20:55)
[2016-11-25] MEDS: XANAX PO PRN ×2 (10:30→21:15)
[2016-11-25] MEDS: HABITROL TD SCH (10:35)
[2016-11-25] MEDS: ECOTRIN PO SCH (10:35)
[2016-11-25] MEDS: FOLVITE PO SCH (10:35)
[2016-11-25] MEDS: LOPRESSOR PO SCH ×2 (10:36→21:16)
[2016-11-25] MEDS: PEPCID PO SCH ×2 (10:37→21:15)
[2016-11-25] MEDS: PLAVIX PO SCH (10:37)
[2016-11-25] MEDS: VITAMIN B-1 PO SCH (10:37)
[2016-11-25] MEDS: ZESTRIL PO SCH (10:38)
--- NOTE | 2016-11-25 12:25 | Progress Note ---
Assessment and Plan Patient is doing better today. No significant chest pain and difficulty in breathing or palpitations. Cardiac enzymes are noted to be abnormal. Lateral ST changes are noted on the EKG. Patient is strongly advised to be compliant with medications. Continue current management. NSTEMI CAD, s/p PCI ICMP HTN Tobacco use / ETOH use - cessation encouraged. H/o ? CVA year ago - per pt report, he did not seek any treatment for transient right-sided weakness and right eye visual disturbances; further eval/management per primary. Noncompliance with medication regimen Anxiety - Patient Problems (1) NSTEMI (non-ST elevated myocardial infarction) Current Visit: Yes Status: Acute Subjective Date of service: 11/25/16 Principal diagnosis: NSTEMI Interval history: Patient is comfortable today. No significant chest pain and difficulty in breathing or palpitations. Patient is somewhat anxious. Objective Vital Signs Temp Pulse Pulse Pulse Resp Resp Resp 11/25/16 12:00 98.9 F 11/25/16 10:40 89 17 11/25/16 10:38 88 11/25/16 10:36 88 11/25/16 10:30 83 20 11/25/16 10:20 81 23 11/25/16 10:10 85 19 11/25/16 10:00 87 16 11/25/16 09:50 83 22 11/25/16 09:40 85 23 11/25/16 09:30 84 17 11/25/16 09:20 98 H 82 14 12 11/25/16 09:11 77 18 11/25/16 09:10 79 12 11/25/16 09:09 11/25/16 09:00 74 14 11/25/16 08:50 78 22 11/25/16 08:40 80 23 11/25/16 08:30 91 H 24 11/25/16 08:20 81 11 L 11/25/16 08:10 89 18 11/25/16 08:00 75 88 16 11/25/16 07:52 97.3 F L 11/25/16 07:50 75 18 11/25/16 07:40 75 19 11/25/16 07:30 72 16 11/25/16 07:20 18 11/25/16 07:10 82 10 L 11/25/16 07:00 73 14 11/25/16 06:50 79 15 11/25/16 06:40 77 15 11/25/16 06:30 71 14 11/25/16 06:20 70 15 11/25/16 06:10 71 17 11/25/16 06:00 98.6 F 71 17 11/25/16 05:50 78 15 11/25/16 05:41 72 19 11/25/16 05:40 74 11 L 11/25/16 05:38 72 11/25/16 05:30 76 19 11/25/16 05:20 69 20 11/25/16 05:10 71 18 11/25/16 05:00 66 17 11/25/16 04:50 69 19 11/25/16 04:40 66 20 11/25/16 04:30 68 15 11/25/16 04:20 88 13 11/25/16 04:10 76 14 11/25/16 04:00 71 19 11/25/16 03:50 71 20 11/25/16 03:40 69 18 11/25/16 03:30 74 17 11/25/16 03:20 75 18 11/25/16 03:10 77 18 11/25/16 03:00 73 18 11/25/16 02:50 75 19 11/25/16 02:40 72 21 19 11/25/16 02:30 72 17 11/25/16 02:20 72 17 11/25/16 02:10 76 17 11/25/16 02:00 76 12 11/25/16 01:50 69 23 11/25/16 01:40 68 20 11/25/16 01:30 81 14 11/25/16 01:20 72 19 11/25/16 01:10 69 22 11/25/16 01:00 71 16 11/25/16 00:50 71 19 11/25/16 00:40 71 21 11/25/16 00:30 72 20 11/25/16 00:20 70 19 11/25/16 00:10 72 11 L 11/25/16 00:08 73 16 11/25/16 00:00 77 18 11/24/16 23:54 76 10 L 11/24/16 23:50 70 20 11/24/16 23:42 69 19 11/24/16 23:40 69 19 11/24/16 23:30 72 19 11/24/16 23:20 75 18 11/24/16 23:10 77 18 11/24/16 23:00 75 18 11/24/16 22:50 76 18 11/24/16 22:40 80 13 11/24/16 22:30 80 17 11/24/16 22:20 83 18 11/24/16 22:10 83 24 11/24/16 22:03 84 11/24/16 22:00 88 14 11/24/16 21:53 87 11/24/16 21:50 84 20 11/24/16 21:40 83 24 11/24/16 21:30 84 16 11/24/16 21:20 89 18 11/24/16 21:14 98.5 F 11/24/16 21:10 95 H 22 11/24/16 21:00 92 H 14 11/24/16 20:50 80 20 11/24/16 20:40 83 14 11/24/16 20:38 11/24/16 20:37 84 12 11/24/16 20:30 80 17 11/24/16 20:25 80 12 11/24/16 20:20 72 20 11/24/16 20:10 78 21 11/24/16 20:00 98.8 F 76 16 11/24/16 19:50 78 20 11/24/16 19:40 78 18 11/24/16 19:30 81 21 11/24/16 19:20 82 14 11/24/16 19:10 75 20 11/24/16 19:00 79 20 11/24/16 18:50 81 19 11/24/16 18:40 82 20 11/24/16 18:30 83 21 11/24/16 18:20 83 21 11/24/16 18:10 85 22 11/24/16 18:00 86 13 11/24/16 17:50 85 22 11/24/16 17:40 96 H 14 11/24/16 17:30 82 23 11/24/16 17:20 84 18 11/24/16 17:10 86 15 11/24/16 17:00 93 H 15 11/24/16 16:50 84 26 H 11/24/16 16:40 92 H 22 11/24/16 16:30 83 22 11/24/16 16:20 76 17 11/24/16 16:10 81 15 11/24/16 16:00 98.3 F 75 90 15 11/24/16 15:50 80 10 L 11/24/16 15:40 76 21 11/24/16 15:30 82 15 11/24/16 15:20 75 22 11/24/16 15:10 73 19 11/24/16 15:00 80 16 11/24/16 14:50 85 14 11/24/16 14:40 81 19 11/24/16 14:30 83 20 11/24/16 14:20 83 21 11/24/16 14:10 86 15 11/24/16 14:00 91 H 12 11/24/16 13:50 89 11 L 11/24/16 13:40 94 H 11 L 11/24/16 13:30 89 13 11/24/16 13:20 95 H 15 11/24/16 13:10 90 24 11/24/16 13:00 84 21 11/24/16 12:50 85 24 11/24/16 12:40 89 12 11/24/16 12:30 96 H 19 BP Pulse Ox 11/25/16 12:00 11/25/16 10:40 98/58 94 11/25/16 10:38 98/58 11/25/16 10:36 98/58 11/25/16 10:30 98/58 94 11/25/16 10:20 94/42 93 11/25/16 10:10 94/42 92 11/25/16 10:00 94/42 95 11/25/16 09:50 89/54 90 11/25/16 09:40 89/54 89 11/25/16 09:30 94/57 93 11/25/16 09:20 89/54 92 11/25/16 09:11 11/25/16 09:10 89/54 95 11/25/16 09:09 93 11/25/16 09:00 89/54 94 11/25/16 08:50 106/69 94 11/25/16 08:40 106/69 95 11/25/16 08:30 106/69 95 11/25/16 08:20 106/71 93 11/25/16 08:10 106/71 95 11/25/16 08:00 106/71 96 11/25/16 07:52 11/25/16 07:50 115/81 95 11/25/16 07:40 110/68 95 11/25/16 07:30 99/63 97 11/25/16 07:20 98/64 97 11/25/16 07:10 98/64 96 11/25/16 07:00 98/64 96 11/25/16 06:50 100/66 98 11/25/16 06:40 100/66 98 11/25/16 06:30 100/66 97 11/25/16 06:20 96/55 96 11/25/16 06:10 96/55 95 11/25/16 06:00 96/55 96 11/25/16 05:50 90/55 96 11/25/16 05:41 11/25/16 05:40 90/55 97 11/25/16 05:38 90/55 11/25/16 05:30 83/48 95 11/25/16 05:20 81/42 97 11/25/16 05:10 81/42 97 11/25/16 05:00 81/42 97 11/25/16 04:50 90/51 96 11/25/16 04:40 90/51 97 11/25/16 04:30 90/51 98 11/25/16 04:20 87/45 95 11/25/16 04:10 87/45 97 11/25/16 04:00 87/45 94 11/25/16 03:50 93/61 97 11/25/16 03:40 93/61 94 11/25/16 03:30 93/61 96 11/25/16 03:20 91/59 96 11/25/16 03:10 91/59 95 11/25/16 03:00 91/59 95 11/25/16 02:50 90/61 96 11/25/16 02:40 90/61 97 11/25/16 02:30 90/61 95 11/25/16 02:20 101/69 97 11/25/16 02:10 101/69 99 11/25/16 02:00 101/69 98 11/25/16 01:50 94/58 97 11/25/16 01:40 94/58 97 11/25/16 01:30 94/58 99 11/25/16 01:20 79/42 96 11/25/16 01:10 79/42 95 11/25/16 01:00 79/42 95 11/25/16 00:50 88/49 95 11/25/16 00:40 88/49 94 11/25/16 00:30 88/49 94 11/25/16 00:20 88/49 97 11/25/16 00:10 88/49 96 11/25/16 00:08 88/49 96 11/25/16 00:00 77/47 94 11/24/16 23:54 91/57 94 11/24/16 23:50 91/57 95 11/24/16 23:42 91/57 97 11/24/16 23:40 91/57 97 11/24/16 23:30 91/57 96 11/24/16 23:20 91/57 96 11/24/16 23:10 91/57 96 11/24/16 23:00 91/57 96 11/24/16 22:50 102/66 98 11/24/16 22:40 102/66 96 11/24/16 22:30 102/66 95 11/24/16 22:20 102/66 95 11/24/16 22:10 102/66 99 11/24/16 22:03 107/71 11/24/16 22:00 102/66 99 11/24/16 21:53 107/71 11/24/16 21:50 107/71 98 11/24/16 21:40 107/71 98 11/24/16 21:30 107/71 99 11/24/16 21:20 107/71 97 11/24/16 21:14 11/24/16 21:10 78/52 95 11/24/16 21:00 85/61 97 11/24/16 20:50 96/59 99 11/24/16 20:40 96/59 97 11/24/16 20:38 97 11/24/16 20:37 11/24/16 20:30 96/59 99 11/24/16 20:25 11/24/16 20:20 96/59 96 11/24/16 20:10 96/59 98 11/24/16 20:00 96/59 98 11/24/16 19:50 95/66 97 11/24/16 19:40 95/66 96 11/24/16 19:30 95/66 98 11/24/16 19:20 95/66 97 11/24/16 19:10 94/60 96 11/24/16 19:00 87/53 98 11/24/16 18:50 94/60 97 11/24/16 18:40 94/60 97 11/24/16 18:30 94/60 97 11/24/16 18:20 94/60 97 11/24/16 18:10 94/60 100 11/24/16 18:00 94/60 98 11/24/16 17:50 101/67 98 11/24/16 17:40 101/67 98 11/24/16 17:30 101/67 100 11/24/16 17:20 101/67 99 11/24/16 17:10 101/67 98 11/24/16 17:00 101/67 98 11/24/16 16:50 96/64 99 11/24/16 16:40 96/64 98 11/24/16 16:30 96/64 98 11/24/16 16:20 96/64 98 11/24/16 16:10 96/64 98 11/24/16 16:00 96/64 99 11/24/16 15:50 101/65 99 11/24/16 15:40 101/65 99 11/24/16 15:30 101/65 98 11/24/16 15:20 101/65 96 11/24/16 15:10 101/65 98 11/24/16 15:00 101/65 96 11/24/16 14:50 82/52 97 11/24/16 14:40 82/52 97 11/24/16 14:30 82/52 97 11/24/16 14:20 82/52 97 11/24/16 14:10 82/52 97 11/24/16 14:00 96/57 98 11/24/16 13:50 82/52 97 11/24/16 13:40 80/55 97 11/24/16 13:30 80/55 98 11/24/16 13:20 80/55 95 11/24/16 13:10 80/55 96 11/24/16 13:00 80/55 94 11/24/16 12:50 92/61 96 11/24/16 12:40 92/61 98 11/24/16 12:30 97 - Physical Examination HEENT: Positive: PERRL, Normocephaly, Mucus Membranes Moist Neck: Positive: neck supple, trachea midline Cardiac: Positive: Reg Rate and Rhythm Lungs: Positive: clear to auscultation Neuro: Positive: Grossly Intact, Cranial Nerve 2-12 Intact Abdomen: Positive: Unremarkable, Soft, Active Bowel Sounds. Negative: Tender Skin: Positive: Clear. Negative: Rash, Wound Musculoskeletal: No Fluid Collection, No Pain, Normal Range of Motion Extremities: Present: normal, upper extr. pulses, lower extr. pulses. Absent: edema - Labs and Meds CBC 11/24/16 11/25/16 Range/Units 22:52 04:24 Hgb 12.4 12.8 (11.8-15.2) gm/dl Hct 38.2 39.3 (35.5-45.6) % Plt Count 249 245 (140-440) K/mm3 - Imaging and Cardiology EKG: report reviewed Echo: pending - EKG Sinus rhythms and dysrhythmias: sinus rhythm Repolarization changes or abnormalities: ST or T wave suggestive of ischemia Myocardial infarction: septal [place] (old age or ind, anterior [place] (old age or i
[2016-11-26] MEDS: HEPARIN/ 0.45% NACL-25,000 UNIT/500 ML 25,000 UNIT/500 ML BAG IV SCH ×2 (00:01→16:49)
[2016-11-26 05:37] LABS: Hematocrit 38.6 % (35.5-45.6); Hemoglobin 12.6 gm/dl (11.8-15.2)
[2016-11-26] MEDS: NITRO-BID 2% TP SCH ×3 (06:04→21:58)
[2016-11-26] MEDS: XANAX PO PRN ×3 (06:05→22:04)
[2016-11-26] MEDS: DUONEB 0.5 MG-3 MG/3 ML SOLN IH SCH ×3 (07:36→20:25)
[2016-11-26] MEDS: ECOTRIN PO SCH (10:03)
[2016-11-26] MEDS: ZESTRIL PO SCH (10:03)
[2016-11-26] MEDS: FOLVITE PO SCH (10:03)
[2016-11-26] MEDS: VITAMIN B-1 PO SCH (10:03)
[2016-11-26] MEDS: HABITROL TD SCH (10:03)
[2016-11-26] MEDS: PEPCID PO SCH ×2 (10:03→22:40)
[2016-11-26] MEDS: PLAVIX PO SCH (10:03)
[2016-11-26] MEDS: LOPRESSOR PO SCH ×2 (10:03→21:58)
--- NOTE | 2016-11-26 13:26 | Progress Note ---
Assessment and Plan To continue current management.To continue to defer smoking. Needs help with case/protective services social worker for meds and F/U appointments, etc. - Patient Problems (1) CAD (coronary artery disease) Current Visit: Yes Status: Chronic Qualifiers: Coronary Disease-Associated Artery/Lesion type: C [place] vs. transplanted heart: N Associated angina: A (2) Tobacco abuse Current Visit: Yes Status: Resolved (3) NSTEMI (non-ST elevated myocardial infarction) Current Visit: Yes Status: Acute Subjective Date of service: 11/26/16 Principal diagnosis: NSTEMI Interval history: No CP. Rhythm, BP - stable.Feels better. Objective Vital Signs Temp Pulse Pulse Pulse Resp Resp BP 11/26/16 07:46 83 20 11/26/16 07:37 92 H 11/26/16 07:36 89 18 11/26/16 07:00 97.8 F 78 18 11/26/16 06:14 73 11/26/16 06:04 75 103/65 11/26/16 05:32 97.9 F 75 18 11/26/16 00:52 98.2 F 77 20 11/25/16 21:16 81 121/66 11/25/16 21:06 88 16 11/25/16 20:59 11/25/16 20:56 80 18 11/25/16 20:52 97.9 F 81 20 11/25/16 18:47 98 H 11/25/16 17:50 83 12 108/70 11/25/16 17:40 85 15 108/70 11/25/16 17:30 83 17 108/70 11/25/16 17:20 92 H 11 L 110/74 11/25/16 17:10 91 H 17 110/74 11/25/16 17:00 91 H 17 110/74 11/25/16 16:50 97 H 16 107/73 11/25/16 16:40 100 H 12 107/73 11/25/16 16:30 83 20 107/73 11/25/16 16:20 79 22 98/58 11/25/16 16:10 80 8 L 95/58 11/25/16 16:00 98.4 F 81 22 95/58 11/25/16 15:50 82 24 98/58 11/25/16 15:40 84 18 98/58 11/25/16 15:30 84 21 98/58 11/25/16 15:24 85 18 11/25/16 15:20 81 15 96/66 11/25/16 15:15 76 12 11/25/16 15:10 78 21 96/66 11/25/16 15:00 79 21 96/66 11/25/16 14:50 79 23 91/58 11/25/16 14:40 80 22 91/58 11/25/16 14:30 75 23 91/58 11/25/16 14:20 79 23 100/63 11/25/16 14:10 86 26 H 100/63 11/25/16 14:00 81 27 H 100/63 11/25/16 13:50 83 24 99/62 11/25/16 13:40 82 27 H 99/62 11/25/16 13:30 80 27 H 99/62 BP Pulse Ox 11/26/16 07:46 11/26/16 07:37 11/26/16 07:36 95 11/26/16 07:00 107/68 97 11/26/16 06:14 11/26/16 06:04 11/26/16 05:32 103/63 94 11/26/16 00:52 111/68 97 11/25/16 21:16 11/25/16 21:06 11/25/16 20:59 96 11/25/16 20:56 11/25/16 20:52 112/66 98 11/25/16 18:47 11/25/16 17:50 96 11/25/16 17:40 97 11/25/16 17:30 98 11/25/16 17:20 98 11/25/16 17:10 95 11/25/16 17:00 87 11/25/16 16:50 95 11/25/16 16:40 93 11/25/16 16:30 94 11/25/16 16:20 92 11/25/16 16:10 91 11/25/16 16:00 91 11/25/16 15:50 93 11/25/16 15:40 93 11/25/16 15:30 95 11/25/16 15:24 11/25/16 15:20 92 11/25/16 15:15 11/25/16 15:10 97 11/25/16 15:00 96 11/25/16 14:50 92 11/25/16 14:40 94 11/25/16 14:30 95 11/25/16 14:20 94 11/25/16 14:10 98 11/25/16 14:00 93 11/25/16 13:50 94 11/25/16 13:40 93 11/25/16 13:30 95 - Physical Examination General: No Apparent Distress HEENT: Positive: PERRL, Normocephaly, Mucus Membranes Moist Neck: Positive: neck supple, trachea midline Cardiac: Positive: Reg Rate and Rhythm Lungs: Positive: Normal Exam, clear to auscultation, Normal Breath Sounds Neuro: Positive: Grossly Intact, Cranial Nerve 2-12 Intact Abdomen: Positive: Unremarkable, Soft, Active Bowel Sounds. Negative: Tender Skin: Positive: Clear. Negative: Rash, Wound Musculoskeletal: No Fluid Collection, No Pain, Normal Range of Motion Gait: Normal Gait Extremities: Present: normal, upper extr. pulses, lower extr. pulses. Absent: edema - Labs and Meds CBC 11/26/16 Range/Units 04:38 Hgb 12.6 (11.8-15.2) gm/dl Hct 38.6 (35.5-45.6) % Plt Count 276 (140-440) K/mm3 - Imaging and Cardiology EKG: report reviewed, image reviewed Echo: pending, report reviewed, image reviewed (LVEF 35 to 40%, Mild MR, Mild TR ) - Telemetry EKG Rhythm: Sinus Rhythm - EKG Sinus rhythms and dysrhythmias: sinus rhythm Repolarization changes or abnormalities: ST or T wave suggestive of ischemia Myocardial infarction: septal [place] (old age or ind, lateral [place] (acute or rece
--- NOTE | 2016-11-26 15:16 | Progress Note ---
Assessment and Plan Assessment and plan: --Non-ST elevation IN Status post heart cath, widely open LAD stent, continue current management --History of coronary artery disease status post PCI Patient advised to comply with medications Continue aspirin and Plavix beta blockers AMANUEL inhibitor as nitrates statins --Dyslipidemia stable on statin --Hypertension well-controlled --Ongoing tobacco use smoking cessation counseling done advised nicotine patch --Alcohol abuse counseling done patient advised to quit alcohol intake Closely monitor for any alcohol withdrawal symptoms --DVT prophylaxis with Lovenox --If Patient is stable may discharge him home in 1-2 days --DC planning. Case management Assistance with medications and follow up appointment an possible home health Plan of care discussed with the patient as well as his nurse DC home tomorrow if stable and cleared by cardiology History Interval history: Patient seen and evaluated medical records reviewed No new events reported by the nursing staff Patient denies any chest pain or shortness of breath Alert awake oriented 3 not in acute distress vital signs reviewed Hospitalist Physical - Constitutional Vitals: Temp Pulse Resp BP Pulse Ox 99.3 F 75 18 108/73 98 11/26/16 14:24 11/26/16 14:24 11/26/16 14:24 11/26/16 14:24 11/26/16 14:24 General appearance: Present: no acute distress, well-nourished - EENT Eyes: Present: PERRL, EOM intact - Neck Neck: Present: supple, normal ROM - Respiratory Respiratory effort: normal Respiratory: negative: rales, rhonchi, wheezing - Cardiovascular Rhythm: regular Heart Sounds: Present: S1 & S2 - Extremities Extremities: no ischemia, pulses intact, pulses symmetrical Peripheral Pulses: within normal limits - Abdominal General gastrointestinal: soft, non-tender, non-distended, normal bowel sounds - Integumentary Integumentary: Present: clear, warm - Psychiatric Psychiatric: appropriate mood/affect, cooperative - Neurologic Neurologic: CNII-XII intact, moves all extremities Results - Labs CBC & Chem 7: 11/26/16 04:38 11/24/16 04:12 Labs: Laboratory Last Values WBC 8.8 K/mm3 (4.5-11.0) 11/23/16 08:23 RBC 4.70 M/mm3 (3.65-5.03) 11/23/16 08:23 Hgb 12.6 gm/dl (11.8-15.2) 11/26/16 04:38 Hct 38.6 % (35.5-45.6) 11/26/16 04:38 MCV 87 fl (84-94) 11/23/16 08:23 MCH 29 pg (28-32) 11/23/16 08:23 MCHC 33 % (32-34) 11/23/16 08:23 RDW 15.5 % (13.2-15.2) H 11/23/16 08:23 Plt Count 276 K/mm3 (140-440) 11/26/16 04:38 Lymph % (Auto) 19.0 % (13.4-35.0) 11/23/16 08:23 [place] % (Auto) 13.2 % (0.0-7.3) H 11/23/16 08:23 Eos % (Auto) 2.2 % (0.0-4.3) 11/23/16 08:23 Baso % (Auto) 0.9 % (0.0-1.8) 11/23/16 08:23 Lymph # 1.7 K/mm3 (1.2-5.4) 11/23/16 08:23 [place] # 1.2 K/mm3 (0.0-0.8) H 11/23/16 08:23 Eos # 0.2 K/mm3 (0.0-0.4) 11/23/16 08:23 Baso # 0.1 K/mm3 (0.0-0.1) 11/23/16 08:23 Seg Neutrophils % 64.7 % (40.0-70.0) 11/23/16 08:23 Seg Neutrophils # 5.7 K/mm3 (1.8-7.7) 11/23/16 08:23 PT 13.5 Sec. (12.2-14.9) 11/23/16 09:10 INR 1.04 (0.87-1.13) 11/23/16 09:10 APTT 25.0 Sec. (24.2-36.6) 11/23/16 09:10 Heparin Anti-Xa Level 0.34 U.I./ml (0.3-0.7) 11/25/16 15:08 Sodium 135 mmol/L (137-145) L 11/24/16 04:12 Potassium 4.4 mmol/L (3.6-5.0) 11/24/16 04:12 Chloride 98.0 mmol/L (98-107) 11/24/16 04:12 Carbon Dioxide 26 mmol/L (22-30) 11/24/16 04:12 Anion Gap 15 mmol/L 11/24/16 04:12 BUN 7 mg/dL (9-20) L 11/24/16 04:12 Creatinine 0.4 mg/dL (0.8-1.5) L 11/24/16 04:12 Estimated GFR > 60 ml/min 11/24/16 04:12 BUN/Creatinine Ratio 17.50 % 11/24/16 04:12 Glucose 108 mg/dL (75-100) H 11/24/16 04:12 Calcium 8.2 mg/dL (8.4-10.2) L 11/24/16 04:12 Total Creatine Kinase 1488 units/L (55-170) H 11/24/16 04:12 CK-MB (CK-2) 163.2 ng/mL (0.0-4.0) H 11/24/16 04:12 CK-MB (CK-2) Rel Index 10.9 (0-4) H 11/24/16 04:12 Troponin T 2.370 ng/mL (0.00-0.029) H* D 11/24/16 04:12 Triglycerides 120 mg/dL (2-149) 11/23/16 08:23 Cholesterol 157 mg/dL (50-199) 11/23/16 08:23 LDL Cholesterol Direct 72 mg/dL (50-130) 11/23/16 08:23 HDL Cholesterol 61 mg/dL (40-59) H 11/23/16 08:23 Cholesterol/HDL Ratio 2.57 % 11/23/16 08:23
--- NOTE | 2016-11-26 15:26 | Progress Note ---
Assessment and Plan - Patient Problems (1) NSTEMI (non-ST elevated myocardial infarction) Current Visit: Yes Status: Acute (2) Unstable angina Current Visit: Yes Status: Acute (3) Discharge planning issues Current Visit: Yes Status: Acute Subjective Date of service: 11/26/16 Principal diagnosis: NSTEMI Interval history: Seen and examined at bedside; 24 hour events reviewed; nursing and respiratory care staff consulted; no adverse overnight events reported to me; Objective Vital Signs - 12hr 11/26/16 11/26/16 11/26/16 05:32 06:04 06:14 Temperature 97.9 F Pulse Rate 75 73 Pulse Rate [ Anterior Bilateral Throughout] Pulse Rate [ 75 From Monitor] Respiratory 18 Rate Respiratory Rate [Anterior Bilateral Throughout] Blood Pressure 103/65 Blood Pressure 103/63 [Left Arm] O2 Sat by Pulse 94 Oximetry 11/26/16 11/26/16 11/26/16 07:00 07:36 07:37 Temperature 97.8 F Pulse Rate 92 H Pulse Rate [ 89 Anterior Bilateral Throughout] Pulse Rate [ 78 From Monitor] Respiratory 18 Rate Respiratory 18 Rate [Anterior Bilateral Throughout] Blood Pressure Blood Pressure 107/68 [Left Arm] O2 Sat by Pulse 97 95 Oximetry 11/26/16 11/26/16 07:46 14:24 Temperature 99.3 F Pulse Rate Pulse Rate [ 83 Anterior Bilateral Throughout] Pulse Rate [ 75 From Monitor] Respiratory 18 Rate Respiratory 20 Rate [Anterior Bilateral Throughout] Blood Pressure Blood Pressure 108/73 [Left Arm] O2 Sat by Pulse 98 Oximetry Constitutional: no acute distress, alert Eyes: non-icteric ENT: oropharynx moist Neck: supple, no lymphadenopathy Effort: normal Ascultation: Bilateral: clear Cardiovascular: regular rate and rhythm Gastrointestinal: normoactive bowel sounds, soft, non-tender, non-distended Integumentary: normal Extremities: no cyanosis, no edema, pink and warm, pulses normal, no ischemia or petechiae Neurologic: normal mental status, non-focal exam, pupils equal and round, motor strength normal and Psychiatric: mood appropriate, affect normal CBC and BMP: 11/26/16 04:38 11/24/16 04:12 ABG, PT/INR, D-dimer: PT/INR, D-dimer PT 13.5 Sec. (12.2-14.9) 11/23/16 09:10 INR 1.04 (0.87-1.13) 11/23/16 09:10 Abnormal lab findings: Abnormal Labs 11/23/16 11/23/16 11/23/16 08:23 08:23 10:53 RDW 15.5 H [place] % (Auto) 13.2 H [place] # 1.2 H Heparin Anti-Xa Level Sodium 135 L BUN 7 L Creatinine 0.6 L Glucose Calcium Total Creatine Kinase CK-MB (CK-2) CK-MB (CK-2) Rel Index Troponin T 0.272 H* 0.312 H* HDL Cholesterol 61 H 11/23/16 11/23/16 11/23/16 14:03 23:29 23:29 RDW [place] % (Auto) [place] # Heparin Anti-Xa Level < 0.10 L Sodium BUN Creatinine Glucose Calcium Total Creatine Kinase CK-MB (CK-2) CK-MB (CK-2) Rel Index Troponin T 0.587 H* D 1.820 H* D HDL Cholesterol 11/24/16 11/24/16 11/24/16 04:12 04:12 11:51 RDW [place] % (Auto) [place] # Heparin Anti-Xa Level < 0.10 L < 0.10 L Sodium 135 L BUN 7 L Creatinine 0.4 L Glucose 108 H Calcium 8.2 L Total Creatine Kinase 1488 H CK-MB (CK-2) 163.2 H CK-MB (CK-2) Rel Index 10.9 H Troponin T 2.370 H* D HDL Cholesterol 11/24/16 11/25/16 20:25 04:24 RDW [place] % (Auto) [place] # Heparin Anti-Xa Level 0.14 L < 0.10 L Sodium BUN Creatinine Glucose Calcium Total Creatine Kinase CK-MB (CK-2) CK-MB (CK-2) Rel Index Troponin T HDL Cholesterol
[2016-11-27 05:45] LABS: Hematocrit 40.3 % (35.5-45.6); Hemoglobin 13.2 gm/dl (11.8-15.2)
[2016-11-27] MEDS: NITRO-BID 2% TP SCH ×3 (05:58→22:34)
[2016-11-27] MEDS: XANAX PO PRN (05:58)
[2016-11-27] MEDS: HEPARIN/ 0.45% NACL-25,000 UNIT/500 ML 25,000 UNIT/500 ML BAG IV SCH (06:34)
[2016-11-27] MEDS: DUONEB 0.5 MG-3 MG/3 ML SOLN IH SCH ×3 (08:11→20:41)
--- NOTE | 2016-11-27 10:21 | Progress Note ---
Assessment and Plan Assessment: AMS / left-sided weakness/ aphasia / ? CVA - code stroke initiated; pt for STAT head CT. NSTEMI - s/p [facility] 11/23/2016 -> EF 30 - 35%, patent proximal LAD stent, jailed stent of the proximal diagonal branch which is occluded. CAD, s/p PCI ICMP HTN Tobacco use / ETOH use - cessation encouraged. H/o ? CVA year ago - per pt report, he did not seek any treatment for transient right-sided weakness and right eye visual disturbances; further eval/management per primary. Noncompliance with medication regimen Anxiety Plan: Pt for STAT head CT. Obtain neurology consultation. D/c heparin gtt. Cont all other current cardiac medical management. The patient has been seen in conjunction with Dr. Prieto Elliott who agrees with the assessment and plan of care. Subjective Date of service: 11/27/16 Principal diagnosis: NSTEMI Interval history: Pt resting in bed, noted to have altered mental status, slurred speech, aphasia , new onset left-sided weakness, left-sided facial droop. Right pupil dilated and sluggish to react to light, but this is a chronic finding and unchanged from baseline. Code stroke initiated. VSS, heparin gtt discontinued. Pt examined at 0830AM and was in usual state of health with no complaints or focal neurological deficits per primary RN. Objective Last Vital Signs Temp 98.2 F 11/27/16 07:40 Pulse 72 11/27/16 08:12 Resp 17 11/27/16 08:12 BP 104/58 11/27/16 07:40 Pulse Ox 96 11/27/16 08:12 - Physical Examination General: Other (AMS - as per interval history ) HEENT: Positive: PERRL, Normocephaly, Mucus Membranes Moist Neck: Positive: neck supple, trachea midline Cardiac: Positive: Reg Rate and Rhythm, S1/S2 Lungs: Positive: Normal Exam, clear to auscultation, Normal Breath Sounds Neuro: Positive: Other (left-sided facial droop, left-sided weakness, AMS, aphasia) Abdomen: Positive: Unremarkable, Soft, Active Bowel Sounds. Negative: Tender Skin: Positive: Clear. Negative: Rash, Wound Musculoskeletal: No Fluid Collection, No Pain, Normal Range of Motion Gait: Normal Gait Extremities: Present: normal, upper extr. pulses, lower extr. pulses. Absent: edema - Labs and Meds CBC 11/27/16 Range/Units 05:01 Hgb 13.2 (11.8-15.2) gm/dl Hct 40.3 (35.5-45.6) % Plt Count 299 (140-440) K/mm3 - Imaging and Cardiology EKG: report reviewed, image reviewed Echo: report reviewed, image reviewed (LVEF 35 to 40%, Mild MR, Mild TR) - Telemetry EKG Rhythm: Sinus Rhythm - EKG Sinus rhythms and dysrhythmias: sinus rhythm Repolarization changes or abnormalities: ST or T wave suggestive of ischemia Myocardial infarction: septal FL (old age or ind, lateral FL (acute or rece
[2016-11-27 10:26] LABS: Hematocrit 37.6 % (35.5-45.6); Hemoglobin 12.3 gm/dl (11.8-15.2); Mean Corpuscular HGB Conc 33 % (32-34); Mean Corpuscular Hemoglobin 29 pg (28-32); Mean Corpuscular Volume 89 fl (84-94); Platelet Count 306 K/mm3 (140-440); Red Blood Count 4.23 M/mm3 (3.65-5.03); Red Cell Distribution Width 15.2 % (13.2-15.2)
--- NOTE | 2016-11-27 10:30 | Progress Note ---
Assessment and Plan Assessment and plan: --Hypertension well-controlled --Non-ST elevation [place] Status post heart cath, widely open LAD stent, continue current management including heparin drip per cardiology --History of coronary artery disease status post PCI Patient advised to comply with medications Continue aspirin and Plavix beta blockers AMANUEL inhibitor as nitrates statins --Dyslipidemia stable on statin --Ongoing tobacco use smoking cessation counseling done advised nicotine patch --Alcohol abuse counseling done patient advised to quit alcohol intake Closely monitor for any alcohol withdrawal symptoms --DVT prophylaxis with Lovenox --If Patient is stable plan discharge today if cleared by cardiology --DC planning. Case management Assistance with medications and follow up appointment and possible home health Plan of care discussed with the patient as well as his nurse History Interval history: patient seen and evaluated this morning medical records reviewed Patient feels better denies chest pain or shortness of breath Awaiting to be discharged home, requested to talk with case management and executive secretary social welfare Alert awake oriented 3 not in acute distress Vital signs reviewed, stable Hospitalist Physical - Constitutional Vitals: Temp Pulse Resp BP Pulse Ox 98.2 F 72 17 104/58 96 11/27/16 07:40 11/27/16 08:12 11/27/16 08:12 11/27/16 07:40 11/27/16 08:12 General appearance: Present: no acute distress, well-nourished - EENT Eyes: Present: PERRL, EOM intact - Neck Neck: Present: supple, normal ROM - Respiratory Respiratory effort: normal Respiratory: negative: rales, rhonchi, wheezing - Cardiovascular Rhythm: regular Heart Sounds: Present: S1 & S2 - Extremities Extremities: no ischemia, pulses intact, pulses symmetrical Peripheral Pulses: within normal limits - Abdominal General gastrointestinal: soft, non-tender, non-distended, normal bowel sounds - Integumentary Integumentary: Present: clear, warm - Psychiatric Psychiatric: appropriate mood/affect, cooperative - Neurologic Neurologic: CNII-XII intact, moves all extremities Results - Labs CBC & Chem 7: 11/27/16 10:15 11/27/16 10:15 Labs: Laboratory Last Values WBC 8.8 K/mm3 (4.5-11.0) 11/23/16 08:23 RBC 4.70 M/mm3 (3.65-5.03) 11/23/16 08:23 Hgb 13.2 gm/dl (11.8-15.2) 11/27/16 05:01 Hct 40.3 % (35.5-45.6) 11/27/16 05:01 MCV 87 fl (84-94) 11/23/16 08:23 MCH 29 pg (28-32) 11/23/16 08:23 MCHC 33 % (32-34) 11/23/16 08:23 RDW 15.5 % (13.2-15.2) H 11/23/16 08:23 Plt Count 299 K/mm3 (140-440) 11/27/16 05:01 Lymph % (Auto) 19.0 % (13.4-35.0) 11/23/16 08:23 [place] % (Auto) 13.2 % (0.0-7.3) H 11/23/16 08:23 Eos % (Auto) 2.2 % (0.0-4.3) 11/23/16 08:23 Baso % (Auto) 0.9 % (0.0-1.8) 11/23/16 08:23 Lymph # 1.7 K/mm3 (1.2-5.4) 11/23/16 08:23 [place] # 1.2 K/mm3 (0.0-0.8) H 11/23/16 08:23 Eos # 0.2 K/mm3 (0.0-0.4) 11/23/16 08:23 Baso # 0.1 K/mm3 (0.0-0.1) 11/23/16 08:23 Seg Neutrophils % 64.7 % (40.0-70.0) 11/23/16 08:23 Seg Neutrophils # 5.7 K/mm3 (1.8-7.7) 11/23/16 08:23 PT 13.5 Sec. (12.2-14.9) 11/23/16 09:10 INR 1.04 (0.87-1.13) 11/23/16 09:10 APTT 25.0 Sec. (24.2-36.6) 11/23/16 09:10 Heparin Anti-Xa Level 0.79 U.I./ml (0.3-0.7) H 11/27/16 05:22 Sodium 135 mmol/L (137-145) L 11/24/16 04:12 Potassium 4.4 mmol/L (3.6-5.0) 11/24/16 04:12 Chloride 98.0 mmol/L (98-107) 11/24/16 04:12 Carbon Dioxide 26 mmol/L (22-30) 11/24/16 04:12 Anion Gap 15 mmol/L 11/24/16 04:12 BUN 7 mg/dL (9-20) L 11/24/16 04:12 Creatinine 0.4 mg/dL (0.8-1.5) L 11/24/16 04:12 Estimated GFR > 60 ml/min 11/24/16 04:12 BUN/Creatinine Ratio 17.50 % 11/24/16 04:12 Glucose 108 mg/dL (75-100) H 11/24/16 04:12 Calcium 8.2 mg/dL (8.4-10.2) L 11/24/16 04:12 Total Creatine Kinase 1488 units/L (55-170) H 11/24/16 04:12 CK-MB (CK-2) 163.2 ng/mL (0.0-4.0) H 11/24/16 04:12 CK-MB (CK-2) Rel Index 10.9 (0-4) H 11/24/16 04:12 Troponin T 2.370 ng/mL (0.00-0.029) H* D 11/24/16 04:12 Triglycerides 120 mg/dL (2-149) 11/23/16 08:23 Cholesterol 157 mg/dL (50-199) 11/23/16 08:23 LDL Cholesterol Direct 72 mg/dL (50-130) 11/23/16 08:23 HDL Cholesterol 61 mg/dL (40-59) H 11/23/16 08:23 Cholesterol/HDL Ratio 2.57 % 11/23/16 08:23
--- NOTE | 2016-11-27 10:33 | Event Note ---
Date: 11/27/16 patient was noticed by cardiology nurse practitioner to have altered level of consciousness ,sudden slurring of speech and Left facial droop and left sided weakness. Code Stroke was called, patient's not a candidate for TPA as he is on heparin drip per cardiology Last time seen him well was around 9/9:15 AM this morning when I rounded and discussed treatment and discharge plan Patient is already on aspirin and statin and Plavix, heparin drip was discontinued by cardiology CT scan without contrast stat, carotid Doppler,MRI/MRA , neurology consultation , initiate stroke protocol Plan of care discussed with the patient, his nurse as well as the charge nurse Physical therapy occupational therapy and speech therapy, rehabilitation per protocol DC planning. Case management Follow new to workup and adjust the management as needed
[2016-11-27 10:36] LABS: INR 0.99 (0.87-1.13)
[2016-11-27 10:43] LABS: Partial Thromboplastin Time 106.3 Sec. (24.2-36.6)
--- NOTE | 2016-11-27 10:52 | Cat Scan Report ---
HEAD CT WITHOUT CONTRAST INDICATION: Evaluate for CVA. 98N. COMPARISON: None similar. FINDINGS: Noncontrast head CT demonstrates age-appropriate ventricles and sulci with mild periventricular hypodense small vessel ischemic disease, approximately 4 mm right caudate nucleus lacunar infarct, axial image 26 and old left MCA territory infarcts/ischemic changes as approximately 3 cm high left frontal hypodense region as on axial series 2, image 40 and similar, approximately 2 cm left parietal peripheral focus, axial image 33. No definite acute infarct, hemorrhage, mass effect or midline shift. No abnormal extra axial fluid collections. Normal posterior fossa with preserved basilar cisterns. Rightward nasal septal bowing anteriorly. Mild bilateral ethmoid and sphenoid sinus mucosal thickening. Hypoplastic frontal sinuses, right more than left. Mild right and minimal left sphenoid sinus mucosal thickening may also be present. Clear mastoid air cells. Atherosclerotic internal carotid and left vertebral artery calcifications. Right external auditory canal debris may be directly visualized. Intact calvarium and scalp. Minimal radiopaque dental fillings. CONCLUSION: No definite acute intracranial CT abnormality with few other findings, as above. MRI is more sensitive for detection of acute infarct and may be useful for further evaluation in the setting of a focal neurologic deficit. I phoned the above results to Dr. Maria, 10:40 AM, 11/27/2016. Thank you for the opportunity to participate in this patient's care.
[2016-11-27 11:03] LABS: Alanine Aminotransferase 20 units/L (7-56); Albumin 3.2 g/dL (3.9-5); Albumin/Globulin Ratio 0.8 %; Alkaline Phosphatase 50 units/L (35-129); Anion Gap 17 mmol/L; Bilirubin,Total 0.4 mg/dL (0.1-1.2); Blood Urea Nitrogen 9 mg/dL (9-20); Calcium 9.3 mg/dL (8.4-10.2); Carbon Dioxide 24 mmol/L (22-30); Chloride 96.5 mmol/L (98-107); Glucose 124 mg/dL (75-100); Potassium 4.1 mmol/L (3.6-5.0); Sodium 133 mmol/L (137-145); Total Protein 7.3 g/dL (6.3-8.2)
--- NOTE | 2016-11-27 11:26 | Event Note ---
Date: 11/27/16 I attempted to see this patient between my scheduled coverage time of 8 AM-12 PM but they were not present in the floor room. I will return to staff in consultation 11/28.
[2016-11-27] MEDS: ECOTRIN PO SCH (12:22)
[2016-11-27] MEDS: PLAVIX PO SCH (12:23)
[2016-11-27] MEDS: FOLVITE PO SCH (12:23)
[2016-11-27] MEDS: HABITROL TD SCH (12:23)
[2016-11-27] MEDS: PEPCID PO SCH ×2 (12:23→22:31)
[2016-11-27] MEDS: LOPRESSOR PO SCH ×2 (12:23→22:31)
[2016-11-27] MEDS: ZESTRIL PO SCH (12:24)
[2016-11-27] MEDS: VITAMIN B-1 PO SCH (12:24)
[2016-11-27] MEDS: ATIVAN IV PRN (18:00)
[2016-11-27] MEDS: PERCOCET 5/325 PO PRN (22:32)
[2016-11-27] MEDS: XANAX PO SCH (22:34)
--- NOTE | 2016-11-27 23:43 | Magnetic Resonance Report ---
FINAL REPORT EXAM: MR BRAIN WO CON HISTORY: acute CVA TECHNIQUE: Multi sequence, Multiplanar MR imaging is acquired without administration of gadolinium intravenous contrast. PRIORS: Head CT of the same date FINDINGS: There is no restricted diffusion or abnormal susceptibility. Focal left frontal and frontal occipital T2/FLAIR hyperintensity best demonstrated on series 8, image 15 and 23. The ventricles and cisterns and sulci are proportionately enlarged, consistent with parenchymal volume loss. No midline shift or herniation. No intraparenchymal mass , mass effect or hemorrhage. Additional extensive white matter disease including multiple scattered deep and subcortical hyperintense foci as well as confluent periventricular white matter hyperintensity is suggestive of chronic microvascular angiopathy. Major vascular flow voids are intact. Normal spherical shape of the globes. No abnormal signal within the paranasal sinuses or mastoid air cells. IMPRESSION: No restricted diffusion to suggest acute ischemia. Left-sided white matter disease/vasogenic edema corresponding to most focal areas of [place]-white matter differentiation loss on comparison CT may represent sequela of subacute infarct. Chronic findings of parenchymal volume loss and microvascular angiopathy.
--- NOTE | 2016-11-27 23:51 | Magnetic Resonance Report ---
FINAL REPORT EXAM: MR MRA/MRV HEAD WO CON HISTORY: acute CVA TECHNIQUE: MR [place] angiogram is obtained without contrast utilizing [id number] technique. Source transaxial images as well as multiple three-dimensional reconstructions are provided. PRIORS: None. FINDINGS: Intact [place]. No intracranial stenosis or aneurysm visualized. Dominant left vertebral artery. The right vertebral artery is incompletely visualized. No significant stenosis seen within the intra or extracranial internal carotid arteries. IMPRESSION: Intact [place]. No significant stenosis seen within the imaged intracranial vasculature. Dominant left vertebral artery with incompletely visualized right vertebral artery. Consider CT neck angiogram for additional evaluation as warranted.
[2016-11-28] MEDS: XANAX PO SCH ×3 (05:17→17:38)
[2016-11-28] MEDS: NITRO-BID 2% TP SCH ×4 (05:18→22:22)
[2016-11-28 05:43] LABS: Basophils % (Auto) 1.4 % (0.0-1.8); Hematocrit 39.3 % (35.5-45.6); Hemoglobin 12.8 gm/dl (11.8-15.2); Mean Corpuscular HGB Conc 33 % (32-34); Mean Corpuscular Hemoglobin 29 pg (28-32); Mean Corpuscular Volume 88 fl (84-94); Platelet Count 302 K/mm3 (140-440); Red Blood Count 4.45 M/mm3 (3.65-5.03); Red Cell Distribution Width 15.3 % (13.2-15.2); White Blood Count 6.6 K/mm3 (4.5-11.0)
[2016-11-28 05:53] LABS: Anion Gap 19 mmol/L; Blood Urea Nitrogen 9 mg/dL (9-20); Carbon Dioxide 25 mmol/L (22-30); Chloride 96.9 mmol/L (98-107); Glucose 88 mg/dL (75-100); Magnesium 1.8 mg/dL (1.7-2.3); Potassium 4.4 mmol/L (3.6-5.0); Sodium 136 mmol/L (137-145)
[2016-11-28] MEDS: PERCOCET 5/325 PO PRN ×3 (08:07→22:27)
[2016-11-28] MEDS: DUONEB 0.5 MG-3 MG/3 ML SOLN IH SCH ×3 (09:39→19:27)
[2016-11-28] MEDS: HABITROL TD SCH (10:20)
[2016-11-28] MEDS: LOPRESSOR PO SCH ×2 (10:20→22:22)
[2016-11-28] MEDS: PLAVIX PO SCH (10:20)
[2016-11-28] MEDS: VITAMIN B-1 PO SCH (10:20)
[2016-11-28] MEDS: ECOTRIN PO SCH (10:20)
[2016-11-28] MEDS: PEPCID PO SCH ×2 (10:20→22:22)
[2016-11-28] MEDS: ZESTRIL PO SCH (10:20)
[2016-11-28] MEDS: FOLVITE PO SCH (10:20)
--- NOTE | 2016-11-28 10:46 | Progress Note ---
Assessment and Plan Assessment and plan: Non-ST elevation MN. Status post cardiac cath . Continue current management with Aspirin, Plavix, Lopressor, Lisinopril. Was on Heparin drip now discontinued. Coronary artery disease status post PCI. Continue Aspirin, Plavix beta blockers AMANUEL inhibitor. Hyperlipidemia stable on statin Left shoulder pain with difficulty lifting left upper ext. Obtain X ray left shoulder. Consult Orthopedic surgeon. Left upper ext weakness. MRI Brain negative for stroke. Weakness likely local etiology. DVT prophylaxis with Lovenox Full code status. History Interval history: No more chest pain, left upper ext weakness, left shoulder pain Hospitalist Physical - Physical exam Narrative exam: Gen: Not in acute distress HEENT: Aormocephalic, atraumatic Neck: supple, no JVD Lungs: Clear to auscultation bilaterally, no crackles or wheeze Heart S1-S2 regular, no murmurs rubs or gallop, Abdomen: soft, non tender,non-distended, normal bowel sounds Ext: No edema, cyanosis or clubbing,pain left shoulder Neuro: Awake alert oriented 3, slurred speech - Constitutional Vitals: Temp Pulse Resp BP Pulse Ox 98.5 F 77 20 100/58 96 11/28/16 05:42 11/28/16 08:02 11/28/16 05:42 11/28/16 05:42 11/28/16 05:42 General appearance: Present: no acute distress, well-nourished Results - Labs CBC & Chem 7: 11/28/16 05:07 11/28/16 05:07 Labs: Laboratory Last Values WBC 6.6 K/mm3 (4.5-11.0) 11/28/16 05:07 RBC 4.45 M/mm3 (3.65-5.03) 11/28/16 05:07 Hgb 12.8 gm/dl (11.8-15.2) 11/28/16 05:07 Hct 39.3 % (35.5-45.6) 11/28/16 05:07 MCV 88 fl (84-94) 11/28/16 05:07 MCH 29 pg (28-32) 11/28/16 05:07 MCHC 33 % (32-34) 11/28/16 05:07 RDW 15.3 % (13.2-15.2) H 11/28/16 05:07 Plt Count 302 K/mm3 (140-440) 11/28/16 05:07 Lymph % (Auto) 20.6 % (13.4-35.0) 11/28/16 05:07 [place] % (Auto) 11.3 % (0.0-7.3) H 11/28/16 05:07 Eos % (Auto) 3.0 % (0.0-4.3) 11/28/16 05:07 Baso % (Auto) 1.4 % (0.0-1.8) 11/28/16 05:07 Lymph # 1.4 K/mm3 (1.2-5.4) 11/28/16 05:07 [place] # 0.7 K/mm3 (0.0-0.8) 11/28/16 05:07 Eos # 0.2 K/mm3 (0.0-0.4) 11/28/16 05:07 Baso # 0.1 K/mm3 (0.0-0.1) 11/28/16 05:07 Seg Neutrophils % 63.7 % (40.0-70.0) 11/28/16 05:07 Seg Neutrophils # 4.2 K/mm3 (1.8-7.7) 11/28/16 05:07 PT 13.0 Sec. (12.2-14.9) 11/27/16 10:15 INR 0.99 (0.87-1.13) 11/27/16 10:15 APTT 106.3 Sec. (24.2-36.6) H* 11/27/16 10:15 Thrombin Time > 120.0 Sec. (15.1-19.6) H 11/27/16 10:15 Heparin Anti-Xa Level < 0.10 U.I./ml (0.3-0.7) L 11/27/16 13:17 Sodium 136 mmol/L (137-145) L 11/28/16 05:07 Potassium 4.4 mmol/L (3.6-5.0) 11/28/16 05:07 Chloride 96.9 mmol/L (98-107) L 11/28/16 05:07 Carbon Dioxide 25 mmol/L (22-30) 11/28/16 05:07 Anion Gap 19 mmol/L 11/28/16 05:07 BUN 9 mg/dL (9-20) 11/28/16 05:07 Creatinine 0.6 mg/dL (0.8-1.5) L 11/28/16 05:07 Estimated GFR > 60 ml/min 11/28/16 05:07 BUN/Creatinine Ratio 15.00 % 11/28/16 05:07 Glucose 88 mg/dL (75-100) 11/28/16 05:07 Calcium 9.0 mg/dL (8.4-10.2) 11/28/16 05:07 Magnesium 1.8 mg/dL (1.7-2.3) 11/28/16 05:07 Total Bilirubin 0.4 mg/dL (0.1-1.2) 11/27/16 10:15 AST 30 units/L (5-40) 11/27/16 10:15 ALT 20 units/L (7-56) 11/27/16 10:15 Alkaline Phosphatase 50 units/L (35-129) 11/27/16 10:15 Total Creatine Kinase 1488 units/L (55-170) H 11/24/16 04:12 CK-MB (CK-2) 163.2 ng/mL (0.0-4.0) H 11/24/16 04:12 CK-MB (CK-2) Rel Index 10.9 (0-4) H 11/24/16 04:12 Troponin T 2.370 ng/mL (0.00-0.029) H* D 11/24/16 04:12 Total Protein 7.3 g/dL (6.3-8.2) 11/27/16 10:15 Albumin 3.2 g/dL (3.9-5) L 11/27/16 10:15 Albumin/Globulin Ratio 0.8 % 11/27/16 10:15 Triglycerides 120 mg/dL (2-149) 11/23/16 08:23 Cholesterol 157 mg/dL (50-199) 11/23/16 08:23 LDL Cholesterol Direct 72 mg/dL (50-130) 11/23/16 08:23 HDL Cholesterol 61 mg/dL (40-59) H 11/23/16 08:23 Cholesterol/HDL Ratio 2.57 % 11/23/16 08:23
--- NOTE | 2016-11-28 11:11 | Progress Note ---
Assessment and Plan Assessment: AMS / left-sided weakness/ slurred speech / ? CVA v. ? TIA - symptoms improving ; head CT with NAF; neuro evaluation pending. NSTEMI - s/p [facility] 11/23/2016 -> EF 30 - 35%, patent proximal LAD stent, jailed stent of the proximal diagonal branch occluded. CAD, s/p PCI ICMP HTN Tobacco use / ETOH use - cessation encouraged. H/o ? CVA year ago - per pt report, he did not seek any treatment for transient right-sided weakness and right eye visual disturbances; further eval/management per primary/neuro. Noncompliance with medication regimen Anxiety Plan: Currently stable cardiac status. Cont current medical management, including ASA 325, lipitor, plavix, lopressor, and lisinopril. Await neurology consultation. Pt may discharge home from cardiology standpoint. Follow up in our [place] office with Dr. Shields on 12/11 @ 2:30PM. The patient has been seen in conjunction with Dr. Prieto Elliott who agrees with the assessment and plan of care. Subjective Date of service: 11/28/16 Principal diagnosis: NSTEMI Interval history: Pt resting comfortably in bed, alert and oriented. Still experiencing some slurred speech, left-sided facial droop, and left-sided weakness but symptoms greatly improved from yesterdays evaluation. VSS. Pt denies any cardiac complaints. Objective Last Vital Signs Temp 98.5 F 11/28/16 05:42 Pulse 87 11/28/16 09:11 Resp 16 11/28/16 09:11 BP 100/58 11/28/16 05:42 Pulse Ox 96 11/28/16 05:42 - Physical Examination General: Other (AMS - as per interval history ) HEENT: Positive: Normocephaly, Mucus Membranes Moist Neck: Positive: neck supple, trachea midline Cardiac: Positive: Reg Rate and Rhythm, S1/S2 Lungs: Positive: Normal Exam, clear to auscultation, Normal Breath Sounds Neuro: Positive: Other (left-sided facial droop, left-sided weakness, mild slurring of speech ) Abdomen: Positive: Unremarkable, Soft, Active Bowel Sounds. Negative: Tender Skin: Positive: Clear. Negative: Rash, Wound Musculoskeletal: No Fluid Collection, No Pain, Normal Range of Motion Gait: Normal Gait Extremities: Present: upper extr. pulses, lower extr. pulses. Absent: edema - Labs and Meds CBC 11/28/16 Range/Units 05:07 WBC 6.6 (4.5-11.0) K/mm3 RBC 4.45 (3.65-5.03) M/mm3 Hgb 12.8 (11.8-15.2) gm/dl Hct 39.3 (35.5-45.6) % Plt Count 302 (140-440) K/mm3 Lymph # 1.4 (1.2-5.4) K/mm3 [place] # 0.7 (0.0-0.8) K/mm3 Eos # 0.2 (0.0-0.4) K/mm3 Baso # 0.1 (0.0-0.1) K/mm3 Comprehensive Metabolic Panel 11/28/16 Range/Units 05:07 Sodium 136 L (137-145) mmol/L Potassium 4.4 (3.6-5.0) mmol/L Chloride 96.9 L (98-107) mmol/L Carbon Dioxide 25 (22-30) mmol/L BUN 9 (9-20) mg/dL Creatinine 0.6 L (0.8-1.5) mg/dL Glucose 88 (75-100) mg/dL Calcium 9.0 (8.4-10.2) mg/dL - Imaging and Cardiology EKG: report reviewed, image reviewed Echo: report reviewed, image reviewed (LVEF 35 to 40%, Mild MR, Mild TR) - Telemetry EKG Rhythm: Sinus Rhythm - EKG Sinus rhythms and dysrhythmias: sinus rhythm Repolarization changes or abnormalities: ST or T wave suggestive of ischemia Myocardial infarction: septal MN (old age or ind, lateral MN (acute or rece
--- NOTE | 2016-11-28 11:17 | Consultation ---
History of Present Illness Consult date: 11/28/16 Requesting physician: HARMEET LEUNG Reason for Consult: stroke Chief complaint: L arm weakness History of present illness: 56 YO M Hx stroke January 2016 c/b residual R facial droop, mild slurred speech and RUE clumsiness who was noted to have L facial droop by nursing staff yesterday. Code stroke activated but pt was on heparin gtt, ASA/Plavix so no tPA. He reports that when nurse notified him of facial droop he also reported LUE weakness but he clarifies to me this is pain limited @ the shoulder. Sx are constant. There are no clear aggravating, relieving or temporal factors otherwise. Severity of weakness limits use of the L hand. Past History Past Medical History: CAD, hypertension, stroke (January 2016) Past Surgical History: No surgical history Social history: , lives with family, smoking, alcohol abuse. denies: prescription drug abuse Family history: CAD (Mother had CABG at ~70 YOA) Medications and Allergies Allergies Allergy/AdvReac Type Severity Reaction Status Date / Time No Known Allergies Allergy Unverified 11/27/15 12:06 Home Medications Medication Instructions Recorded Confirmed Last Taken Type Acetaminophen/Codeine [Tylenol #3] 1 tab PO Q6H PRN #15 tab 11/27/15 11/24/16 Unknown Rx Aspirin 81 tab PO DAILY 11/24/16 11/24/16 11/23/16 History Active Meds: Active Medications Albuterol/Ipratropium (Duoneb 0.5 Mg-3 Mg/3 Ml Soln) 1 ampul IH TIDRT [facility] Last Admin: 11/28/16 09:39 Dose: 1 ampul Alprazolam (Xanax) 0.25 mg PO Q8H [facility] Last Admin: 11/28/16 10:23 Dose: 0.25 mg Aspirin (Ecotrin) 325 mg PO QDAY [facility] Last Admin: 11/28/16 10:20 Dose: 325 mg Atorvastatin Calcium (Lipitor) 80 mg PO QHS [facility] Last Admin: 11/27/16 22:31 Dose: 80 mg Clopidogrel Bisulfate (Plavix) 75 mg PO QDAY [facility] Last Admin: 11/28/16 10:20 Dose: 75 mg Docusate Sodium (Colace) 100 mg PO BID PRN PRN Reason: Constipation Last Admin: 11/23/16 22:28 Dose: 100 mg Famotidine (Pepcid) 20 mg PO BID [facility] Last Admin: 11/28/16 10:20 Dose: 20 mg Folic Acid (Folvite) 1 mg PO QDAY [facility] Last Admin: 11/28/16 10:20 Dose: 1 mg Lisinopril (Zestril) 10 mg PO QDAY [facility] Last Admin: 11/28/16 10:20 Dose: 10 mg Lorazepam (Ativan) 2 mg IV Q4H PRN PRN Reason: Agitation Last Admin: 11/27/16 18:00 Dose: 2 mg Metoprolol Tartrate (Lopressor) 25 mg PO BID [facility] Last Admin: 11/28/16 10:20 Dose: 25 mg Nicotine (Habitrol) 14 mg TD QDAY [facility] Last Admin: 11/28/16 10:20 Dose: 14 mg Nitroglycerin (Nitrostat) 0.4 mg SL .Q5MIN PRN PRN Reason: Chest Pain Last Admin: 11/23/16 08:39 Dose: 0.4 mg Nitroglycerin (Nitro-Bid 2%) 1 inch TP Q8HR [facility] PRN Reason: Protocol Last Admin: 11/28/16 05:18 Dose: Not Given Ondansetron HCl (Zofran) 4 mg IV Q4H PRN PRN Reason: Nausea And Vomiting Last Admin: 11/23/16 17:00 Dose: 4 mg Oxycodone/Acetaminophen (Percocet 5/325) 1 tab PO Q6H PRN PRN Reason: Pain, Moderate (4-6) Last Admin: 11/28/16 08:07 Dose: 1 tab Thiamine HCl (Vitamin B-1) 100 mg PO QDAY [facility] Last Admin: 11/28/16 10:20 Dose: 100 mg Zolpidem Tartrate (Ambien) 5 mg PO QHS PRN PRN Reason: Sleep Review of Systems Constitutional: fatigue Cardiovascular: chest pain, shortness of breath Neurological: weakness (RUE), lack of coordination (RUE), change in speech, gait dysfunction, motor disturbance, no paralysis, no parathesias, no numbness, no tingling, no double vision, no paralysis Physical Examination - Vital Signs Vital Signs: Vital Signs Temp Pulse Resp BP Pulse Ox 98.1 F 93 H 26 H 144/94 96 11/23/16 08:05 04/06/17 08:05 11/23/16 08:05 11/23/16 08:05 11/23/16 08:05 - Constitutional General appearance: comfortable - EENT EENT: Present: ATNC, PERRL, mucous membranes moist, hearing intact, vision intact - Respiratory Respiratory: Present: chest non-tender, normal breath sounds, no respiratory distress - Cardiovascular Cardiovascular: Present: regular rate Extremities: Present: no peripheral edema bilatateraly, no clubbing, cyanosis, no inflammation, no ischemia or petechiae - Gastrointestinal Gastrointestinal: Present: normoactive bowel sounds, soft, non-distended - Integumentary Integumentary: Present: normal - Neurologic Cranial nerve examination: PERRL, EOMI, VFF, V1/V2/V3 grossly intact, tongue midline, intact, intact shoulder shrug, intact cough reflex, Intact Vestibulo- ocular r, intact corneal reflex, facial droop (on R mild), normal palatal elevation Speech examination: other (mild dysarthria) Sensorimotor examination: pronator drift (on R), hemiparesis (slight on R) Motor examination - right side: 4/5: biceps, triceps, wrist flexion, wrist extension, library supervisor, hip flexors, knee extensors, dorsiflexion, toe extension (EHL) , plantarflexion Motor examination - left side: 4/5: biceps (limited @ shoulder), triceps ( limited @ shoulder), 5/5: wrist flexion, wrist extension, library supervisor, hip flexors, knee extensors, dorsiflexion, toe extension (EHL), plantarflexion Detailed sensory examination: intact, light touch, temperature Reflex and gait examination: Babinski's sign (on R) Reflexes: 3+: ankle (on R), bicep, knee, tricep - Musculoskeletal Musculoskeletal: Present: no fluid collection, other (pain limited movement of the L shoulder) - Psychiatric Psychiatric: Present: mood/affect appropriate, cooperative Results - Laboratory Findings CBC and BMP: 11/28/16 05:07 11/28/16 05:07 Abnormal Lab Findings: Abnormal Labs 11/23/16 11/23/16 11/23/16 08:23 08:23 10:53 RDW 15.5 H Grady % (Auto) 13.2 H Grady # 1.2 H APTT Thrombin Time Heparin Anti-Xa Level Sodium 135 L Chloride BUN 7 L Creatinine 0.6 L Glucose Calcium Total Creatine Kinase CK-MB (CK-2) CK-MB (CK-2) Rel Index Troponin T 0.272 H* 0.312 H* Albumin HDL Cholesterol 61 H 11/23/16 11/23/16 11/23/16 14:03 23:29 23:29 RDW [place] % (Auto) Grady # APTT Thrombin Time Heparin Anti-Xa Level < 0.10 L Sodium Chloride BUN Creatinine Glucose Calcium Total Creatine Kinase CK-MB (CK-2) CK-MB (CK-2) Rel Index Troponin T 0.587 H* D 1.820 H* D Albumin HDL Cholesterol 11/24/16 11/24/16 11/24/16 04:12 04:12 11:51 RDW [place] % (Auto) Grady # APTT Thrombin Time Heparin Anti-Xa Level < 0.10 L < 0.10 L Sodium 135 L Chloride BUN 7 L Creatinine 0.4 L Glucose 108 H Calcium 8.2 L Total Creatine Kinase 1488 H CK-MB (CK-2) 163.2 H CK-MB (CK-2) Rel Index 10.9 H Troponin T 2.370 H* D Albumin HDL Cholesterol 11/24/16 11/25/16 11/26/16 20:25 04:24 14:54 RDW [place] % (Auto) Grady # APTT Thrombin Time Heparin Anti-Xa Level 0.14 L < 0.10 L 0.80 H Sodium Chloride BUN Creatinine Glucose Calcium Total Creatine Kinase CK-MB (CK-2) CK-MB (CK-2) Rel Index Troponin T Albumin HDL Cholesterol 11/27/16 11/27/16 11/27/16 05:22 10:15 10:15 RDW [place] % (Auto) Grady # APTT 106.3 H* Thrombin Time > 120.0 H Heparin Anti-Xa Level 0.79 H Sodium 133 L Chloride 96.5 L BUN Creatinine 0.6 L Glucose 124 H Calcium Total Creatine Kinase CK-MB (CK-2) CK-MB (CK-2) Rel Index Troponin T Albumin 3.2 L HDL Cholesterol 11/27/16 11/28/16 11/28/16 13:17 05:07 05:07 RDW 15.3 H Grady % (Auto) 11.3 H Grady # APTT Thrombin Time Heparin Anti-Xa Level < 0.10 L Sodium 136 L Chloride 96.9 L BUN Creatinine 0.6 L Glucose Calcium Total Creatine Kinase CK-MB (CK-2) CK-MB (CK-2) Rel Index Troponin T Albumin HDL Cholesterol Assessment and Plan 56 YO M Hx stroke January 2016 c/b residual R facial droop, mild slurred speech and RUE clumsiness/weakness on ASA, recent instiution of Plavix and was on heparin gtt for NSTEMI who had code stroke called 11/27 for nurse noted L facial droop and pt affirmed slurred speech and LUE weakness. The facial "droop" appears to be volitional smirking with the R lower face creating a pseudo- facial droop on the L. The LUE "weakness" is in fact pain limited motion at the L shoulder. The slurred speech is likely post stroke residual. 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 stroke/ TIA. MRI Brain nonacute as reveals only subacute/chronic L frontal infarct. MRA head neg. CDs neg. TTE no thrombus. LDL 72. Plan and Recommendation: 1. Telemetry bed w/ Q4 hour neuro checks 2. Medical w/u for L shoulder pain 3. Autoregulate SBP to goal 120-160 4. Secondary stroke prevention: cont ASA/Plavix/statin as previously Rx. No neurologic indication or contraindication at this point for therapeutic anticoagulation as pt has not had AFib captured on telemetry monitoring. 5. If pt remains stable, no neurologic contraindication to discharge
--- NOTE | 2016-11-28 12:51 | Progress Note ---
Hospitalist Physical - Constitutional Vitals: Temp Pulse Resp BP Pulse Ox 98.5 F 87 16 100/58 96 11/28/16 05:42 11/28/16 09:11 11/28/16 09:11 11/28/16 05:42 11/28/16 05:42 General appearance: Present: no acute distress, well-nourished Results - Labs CBC & Chem 7: 11/28/16 05:07 11/28/16 05:07 Labs: Laboratory Last Values WBC 6.6 K/mm3 (4.5-11.0) 11/28/16 05:07 RBC 4.45 M/mm3 (3.65-5.03) 11/28/16 05:07 Hgb 12.8 gm/dl (11.8-15.2) 11/28/16 05:07 Hct 39.3 % (35.5-45.6) 11/28/16 05:07 MCV 88 fl (84-94) 11/28/16 05:07 MCH 29 pg (28-32) 11/28/16 05:07 MCHC 33 % (32-34) 11/28/16 05:07 RDW 15.3 % (13.2-15.2) H 11/28/16 05:07 Plt Count 302 K/mm3 (140-440) 11/28/16 05:07 Lymph % (Auto) 20.6 % (13.4-35.0) 11/28/16 05:07 [place] % (Auto) 11.3 % (0.0-7.3) H 11/28/16 05:07 Eos % (Auto) 3.0 % (0.0-4.3) 11/28/16 05:07 Baso % (Auto) 1.4 % (0.0-1.8) 11/28/16 05:07 Lymph # 1.4 K/mm3 (1.2-5.4) 11/28/16 05:07 [place] # 0.7 K/mm3 (0.0-0.8) 11/28/16 05:07 Eos # 0.2 K/mm3 (0.0-0.4) 11/28/16 05:07 Baso # 0.1 K/mm3 (0.0-0.1) 11/28/16 05:07 Seg Neutrophils % 63.7 % (40.0-70.0) 11/28/16 05:07 Seg Neutrophils # 4.2 K/mm3 (1.8-7.7) 11/28/16 05:07 PT 13.0 Sec. (12.2-14.9) 11/27/16 10:15 INR 0.99 (0.87-1.13) 11/27/16 10:15 APTT 106.3 Sec. (24.2-36.6) H* 11/27/16 10:15 Thrombin Time > 120.0 Sec. (15.1-19.6) H 11/27/16 10:15 Activated Clotting Time 204 (74-137) H 11/23/16 10:36 Heparin Anti-Xa Level < 0.10 U.I./ml (0.3-0.7) L 11/27/16 13:17 Sodium 136 mmol/L (137-145) L 11/28/16 05:07 Potassium 4.4 mmol/L (3.6-5.0) 11/28/16 05:07 Chloride 96.9 mmol/L (98-107) L 11/28/16 05:07 Carbon Dioxide 25 mmol/L (22-30) 11/28/16 05:07 Anion Gap 19 mmol/L 11/28/16 05:07 BUN 9 mg/dL (9-20) 11/28/16 05:07 Creatinine 0.6 mg/dL (0.8-1.5) L 11/28/16 05:07 Estimated GFR > 60 ml/min 11/28/16 05:07 BUN/Creatinine Ratio 15.00 % 11/28/16 05:07 Glucose 88 mg/dL (75-100) 11/28/16 05:07 Calcium 9.0 mg/dL (8.4-10.2) 11/28/16 05:07 Magnesium 1.8 mg/dL (1.7-2.3) 11/28/16 05:07 Total Bilirubin 0.4 mg/dL (0.1-1.2) 11/27/16 10:15 AST 30 units/L (5-40) 11/27/16 10:15 ALT 20 units/L (7-56) 11/27/16 10:15 Alkaline Phosphatase 50 units/L (35-129) 11/27/16 10:15 Total Creatine Kinase 1488 units/L (55-170) H 11/24/16 04:12 CK-MB (CK-2) 163.2 ng/mL (0.0-4.0) H 11/24/16 04:12 CK-MB (CK-2) Rel Index 10.9 (0-4) H 11/24/16 04:12 Troponin T 2.370 ng/mL (0.00-0.029) H* D 11/24/16 04:12 Total Protein 7.3 g/dL (6.3-8.2) 11/27/16 10:15 Albumin 3.2 g/dL (3.9-5) L 11/27/16 10:15 Albumin/Globulin Ratio 0.8 % 11/27/16 10:15 Triglycerides 120 mg/dL (2-149) 11/23/16 08:23 Cholesterol 157 mg/dL (50-199) 11/23/16 08:23 LDL Cholesterol Direct 72 mg/dL (50-130) 11/23/16 08:23 HDL Cholesterol 61 mg/dL (40-59) H 11/23/16 08:23 Cholesterol/HDL Ratio 2.57 % 11/23/16 08:23
--- NOTE | 2016-11-28 14:34 | XRay Report ---
LEFT SHOULDER: History: Left shoulder pain. Routine views demonstrate normal bony and soft tissue structures with normal joint alignment of the shoulder. IMPRESSION: Normal study.
[2016-11-28] MEDS: ATIVAN IV PRN (22:28)
[2016-11-29] MEDS: XANAX PO SCH ×2 (01:00→09:58)
[2016-11-29] MEDS: NITRO-BID 2% TP SCH (05:59)
[2016-11-29 07:01] LABS: Hematocrit 40.7 % (35.5-45.6); Hemoglobin 13.5 gm/dl (11.8-15.2)
[2016-11-29] MEDS: DUONEB 0.5 MG-3 MG/3 ML SOLN IH SCH (07:48)
[2016-11-29 09:53] VITALS: BP 99/63
[2016-11-29] MEDS: PLAVIX PO SCH (09:56)
[2016-11-29] MEDS: PEPCID PO SCH (09:56)
[2016-11-29] MEDS: FOLVITE PO SCH (09:56)
[2016-11-29] MEDS: ECOTRIN PO SCH (09:56)
[2016-11-29] MEDS: LOPRESSOR PO SCH (09:56)
[2016-11-29] MEDS: VITAMIN B-1 PO SCH (09:56)
[2016-11-29] MEDS: HABITROL TD SCH (09:57)
[2016-11-29] MEDS: ZESTRIL PO SCH (09:57)
--- NOTE | 2016-11-29 10:34 | Discharge Summary ---
Providers - Providers Date of Admission: 11/23/16 08:41 Date of discharge: 11/29/16 Attending physician: HARMEET LEUNG 11/23/16 11:09 Consult to Cardiac Rehabilitation [CONS] Routine Reason For Exam: Cardiac Rehab Evaluation 11/23/16 12:22 Consult to Physician [CONS] Routine Consulting Provider: CONSTANTINE VARGHESE Reason For Exam: nstemi, chest pain needs ICU admission Place consult to:: answering service Notified:: Dr. Silva Phone number called:: [phone] Was contact made?: Yes If yes, spoke with:: Time called:: 12:15 11/24/16 21:49 Consult to Physician [CONS] Urgent Consulting Provider: LUIS M MELENDREZ Reason For Exam: Acute GA Place consult to:: Dr. Melendrez Notified:: yes Was contact made?: Yes Comment:: Initial consult per Dr. Chatterjee 11/27/16 10:24 Consult to Physician [CONS] Routine Consulting Provider: YU DELA CRUZ Reason For Exam: acute CVA Place consult to:: NEURO Notified:: LEONIDES Phone number called:: [phone] Was contact made?: No Time called:: 10:36 Comment:: PUT ON LIST 11/27/16 11:17 Occupational Therapy Evaluate and Treat [CONS] Routine Comment: Reason For Exam: stroke protocol Physical Therapy Evaluation and Treat [CONS] Routine Comment: Reason For Exam: stroke protocol Speech Therapy Evaluation and Treat [CONS] Routine Reason For Exam: stroke protocol 11/28/16 12:51 Consult to Physician [CONS] Routine Consulting Provider: TONI TRUONG V Reason For Exam: severe left shoulder pain with weakness LUE Place consult to:: Dr. Truong Notified:: A SERVICE Was contact made?: Yes If yes, spoke with:: KWAME Primary care physician: BIOLOGY LABORATORY ASSISTANT Hospitalization Condition: Stable Disposition: DISCHARGED TO HOME OR SELFCARE - Discharge Diagnoses (1) NSTEMI (non-ST elevated myocardial infarction) Status: Acute (2) CAD (coronary artery disease) Status: Chronic Qualifiers: Coronary Disease-Associated Artery/Lesion type: C [place] vs. transplanted heart: N Associated angina: A Core Measure Documentation - Palliative Care Palliative Care/ Comfort Measures: Not Applicable - Core Measures Any of the following diagnoses?: acute GA - Acute GA Discharge Requirements Aspirin at discharge: Yes AMANUEL/ARB for LVSD if EF <40%: Yes Beta sorin at discharge: Yes Statin for LDL = or >100 mg/dl on DC: Not Applicable Exam - Constitutional Vitals: Temp Pulse Resp BP Pulse Ox 97.4 F L 76 18 99/63 94 11/29/16 09:52 11/29/16 10:02 11/29/16 09:52 11/29/16 09:52 11/29/16 09:52 Plan Diet: low fat, low cholesterol, low salt Additional Instructions: 1. Follow up with Primary care physician in one week. 2. Follow-up with Dr. Biswas on 12/11/16. 3. Follow-up with Dr. Truong, Orthopedic surgeon in 1 week. 4. No strenous activity until cleared by cardiology. Follow up with: PRIMARY CARE, [Primary Care Provider] - 3-5 Days Prescriptions: Aspirin EC [Aspirin Enteric Coated TAB] 325 mg PO QDAY #30 tablet Clopidogrel [Plavix] 75 mg PO QDAY #30 tablet Famotidine [Pepcid] 20 mg PO BID #60 tablet Folic Acid [Folvite] 1 mg PO QDAY #30 tablet Lisinopril [Zestril TAB] 10 mg PO QDAY #30 tablet Metoprolol [Lopressor TAB] 25 mg PO BID #30 tablet Nitroglycerin [Nitrostat] 0.4 mg SL .Q5MIN PRN #30 tablet PRN Reason: Chest Pain Thiamine [Vitamin B-1] 100 mg PO QDAY #30 tablet
== END 2016-11-29 12:24 | disposition home or self-care (01) | DRG 282 ==
LOC: ED 07:49 → CATH 07:49 → 4A 08:41 → EDSTATUS 09:33 → CC1 11:47 → 4A 11-25 18:10
PROVIDERS: ADMIT Internal Medicine; ATTEND Internal Medicine
PROC: 4A023N7 Measurement of Cardiac Sampling and Pressure, Left Heart, Percutaneous Approach (ICD-10-PCS; principal; 2016-11-23)
PROC: B2111ZZ Fluoroscopy of Multiple Coronary Arteries using Low Osmolar Contrast (ICD-10-PCS; 2016-11-23)
PROC: B2151ZZ Fluoroscopy of Left Heart using Low Osmolar Contrast (ICD-10-PCS; 2016-11-23)
DX: I22.2 Subsequent non-ST elevation (NSTEMI) myocardial infarction (principal); I21.4 Non-ST elevation (NSTEMI) myocardial infarction; I25.110 Atherosclerotic heart disease of native coronary artery with unstable angina pectoris; I10 Essential (primary) hypertension; I25.2 Old myocardial infarction; Z72.89 Other problems related to lifestyle; E78.5 Hyperlipidemia, unspecified; Z82.49 Family history of ischemic heart disease and other diseases of the circulatory system; Z98.61 Coronary angioplasty status; F17.210 Nicotine dependence, cigarettes, uncomplicated; F10.10 Alcohol abuse, uncomplicated; Z71.6 Tobacco abuse counseling; Z71.41 Alcohol abuse counseling and surveillance of alcoholic; I25.5 Ischemic cardiomyopathy; Z91.19 Patient's noncompliance with other medical treatment and regimen; F41.9 Anxiety disorder, unspecified; Z91.14 Patient's other noncompliance with medication regimen
CPT/HCPCS: 36415; 70450; 70544; 70551; 80048; 80053; 80061; 82550; 82553; 83735; 84484; 85014; 85018; 85025; 85027; 85049; 85347; 85520; 85610; 85670; 85730; 93005; 93010; 93306; 93458; 93880; 94640; 96374; A9270-GY; C1769; C1887; C1894; J1644; J2060; J2250; J2270; J2405; J3010; J7040; Q9967

== ENCOUNTER 2016-12-01 14:05 | Inpatient (IN) | payer OTHER ==
--- NOTE | 2016-12-01 15:17 | Emergency Department Report ---
HPI - General Chief Complaint: Extremity Injury, Lower Time Seen by Provider: 12/01/16 15:10 - HPI HPI: Room 6 Patient is a 56-year-old male presenting with a chief complaint of left location pain. The patient states he noticed the symptoms morning he awakened 11/28/2016. The patient states his continued have pain and numbness in the left foot. The patient had an arterial Doppler ordered in triage and the patient was there during this interview. Vascular surgery was notified of the patient's presentation and location in vascular lab obtaining an arterial Doppler. Location: Left foot Duration: 3 days Quality: Pain Severity: 10 Modifying factors: [see above] Context: [see above] Mode of transportation: Unknown ED Past Medical Hx - Past Medical History Previous Medical History?: Yes Hx Hypertension: Yes Hx Heart Attack/AMI: Yes Hx Arthritis: Yes - Surgical History Hx Coronary Stent: Yes Additional Surgical History: Cardia stents - Family History Family history: no significant - Social History Smoking Status: Former Smoker Substance Use Type: None - Medications Home Medications: Home Medications Medication Instructions Recorded Confirmed Last Taken Type Acetaminophen/Codeine [Tylenol 1 tab PO Q6H PRN #15 tab 11/27/15 11/24/16 Unknown Rx /Codeine # 3 tab] Aspirin EC [Aspirin Enteric Coated 325 mg PO QDAY #30 tablet 11/29/16 Unknown Rx TAB] AtorvaSTATin [Lipitor] 40 mg PO DAILY #30 tablet 11/29/16 Unknown Rx Clopidogrel [Plavix] 75 mg PO QDAY #30 tablet 11/29/16 Unknown Rx Famotidine [Pepcid] 20 mg PO BID #60 tablet 11/29/16 Unknown Rx Folic Acid [Folvite] 1 mg PO QDAY #30 tablet 11/29/16 Unknown Rx Lisinopril [Zestril TAB] 10 mg PO QDAY #30 tablet 11/29/16 Unknown Rx Metoprolol [Lopressor TAB] 25 mg PO BID #30 tablet 11/29/16 Unknown Rx Nitroglycerin [Nitrostat] 0.4 mg SL .Q5MIN PRN #30 tablet 11/29/16 Unknown Rx Thiamine [Vitamin B-1] 100 mg PO QDAY #30 tablet 11/29/16 Unknown Rx ED Review of Systems ROS: Stated complaint: NO PULSES/LEFT FOOT Other details as noted in HPI Comment: All other systems reviewed and negative Constitutional: denies: chills, fever Eyes: denies: eye pain, eye discharge, vision change ENT: denies: ear pain, throat pain Respiratory: denies: cough, shortness of breath, wheezing Cardiovascular: denies: chest pain, palpitations Endocrine: no symptoms reported Gastrointestinal: denies: abdominal pain, nausea, diarrhea Genitourinary: denies: urgency, dysuria Musculoskeletal: denies: back pain, joint swelling, arthralgia Skin: denies: rash, lesions Neurological: denies: headache, weakness, paresthesias Psychiatric: denies: anxiety, depression Hematological/Lymphatic: denies: easy bleeding, easy bruising Physical Exam - Physical Exam Vital Signs: Vital Signs 12/01/16 14:45 Temperature 98.1 F Pulse Rate 99 H Respiratory 19 Rate Blood Pressure 107/66 O2 Sat by Pulse 99 Oximetry Physical Exam: GENERAL: The patient is well-developed well-nourished male lying in vascular suite not appearing to be in acute distress. [] HEENT: Normocephalic. Atraumatic. Extraocular motions are intact. Patient has moist mucous membranes. NECK: Supple. Trachea midline CHEST/LUNGS: Clear to auscultation. There is no respiratory distress noted. HEART/CARDIOVASCULAR: Regular. There is no tachycardia. There is no gallop rub or murmur. Unable to palpate a DP in the left foot ABDOMEN: Patient has normal bowel sounds. There is no abdominal distention. SKIN: The left foot is cool and mottled. NEURO: The patient is awake, alert, and oriented. The patient is cooperative. The patient has normal speech MUSCULOSKELETAL: There is no evidence of acute injury. ED Course Vital Signs 12/01/16 14:45 Temperature 98.1 F Pulse Rate 99 H Respiratory 19 Rate Blood Pressure 107/66 O2 Sat by Pulse 99 Oximetry - Consultations Consultation #1: 12/01/16 15:16 Vascular surgery paged-case discussed with Fawad Gray 12/01/16 15:45 Case discussed with vascular surgeon Dr. Ceron-will take patient to or. Have hospitalist admit ED Medical Decision Making - Radiology Data Radiology results: report reviewed (arterial ultrasound) Arterial ultrasound (discussed with radiologist)-low-flow the iliac. Questionable thrombus in the common femoral Critical care attestation.: If time is entered above; I have spent that time in minutes in the direct care of this critically ill patient, excluding procedure time. ED Disposition Clinical Impression: Occlusion of artery of lower extremity Disposition: OP ADMITTED IP TO THIS HOSP Is pt being admited?: Yes Does the pt Need Aspirin: Yes Condition: Serious Time of Disposition: 15:46 (hospitalist notified)
[2016-12-01] MEDS ORDERED: QUELICIN ONE (15:39)
[2016-12-01] MEDS ORDERED: ZEMURON IV ONE (15:39)
[2016-12-01] MEDS ORDERED: XYLOCAINE MPF 2% ONE (15:39)
[2016-12-01] MEDS ORDERED: DIPRIVAN 10 MG/ML IV ONE (15:39)
[2016-12-01] MEDS ORDERED: SUBLIMAZE ONE (15:40)
--- NOTE | 2016-12-01 15:45 | History and Physical Report ---
History of Present Illness Chief complaint: Leg pain History of present illness: 56 YO Male with HTN, [place], PVD, CAD S/P Stent placement, OA presents to ED for evaluation. Pt states he experienced pain and numbness to his left leg and foot. Pt states that he noticed the symptoms upon waking from sleep on 2016. The patient states the symptoms worsened over the ensuing three days. Pt subsequently presents to ED for evaluation. Pt seen and evaluated in ED and found to have limb ischemia. Vascular surgery was notified of the patient's presentation and taken to vascular lab, and subsequent surgical intervention. Past History Past Medical History: acute [place], arthritis, CAD, hypertension, PVD Past Surgical History: Other (stent) Social history: . denies: smoking, alcohol abuse, prescription drug abuse Family history: hypertension Medications and Allergies Allergies Allergy/AdvReac Type Severity Reaction Status Date / Time No Known Allergies Allergy Unverified 11/27/15 12:06 Home Medications Medication Instructions Recorded Confirmed Last Taken Type Acetaminophen/Codeine [Tylenol 1 tab PO Q6H PRN #15 tab 11/27/15 11/24/16 Unknown Rx /Codeine # 3 tab] Aspirin EC [Aspirin Enteric Coated 325 mg PO QDAY #30 tablet 11/29/16 Unknown Rx TAB] AtorvaSTATin [Lipitor] 40 mg PO DAILY #30 tablet 11/29/16 Unknown Rx Clopidogrel [Plavix] 75 mg PO QDAY #30 tablet 11/29/16 Unknown Rx Famotidine [Pepcid] 20 mg PO BID #60 tablet 11/29/16 Unknown Rx Folic Acid [Folvite] 1 mg PO QDAY #30 tablet 11/29/16 Unknown Rx Lisinopril [Zestril TAB] 10 mg PO QDAY #30 tablet 11/29/16 Unknown Rx Metoprolol [Lopressor TAB] 25 mg PO BID #30 tablet 11/29/16 Unknown Rx Nitroglycerin [Nitrostat] 0.4 mg SL .Q5MIN PRN #30 tablet 11/29/16 Unknown Rx Thiamine [Vitamin B-1] 100 mg PO QDAY #30 tablet 11/29/16 Unknown Rx Review of Systems All systems: negative Musculoskeletal: leg numbness/tingling Exam - Constitutional Vitals: Temp Pulse Resp BP Pulse Ox 98.1 F 99 H 19 107/66 99 12/01/16 14:45 12/01/16 14:45 12/01/16 14:45 12/01/16 14:45 12/01/16 14:45 General appearance: Present: mild distress - EENT Eyes: Present: PERRL ENT: hearing intact, clear oral mucosa - Neck Neck: Present: supple, normal ROM - Respiratory Respiratory effort: normal Respiratory: bilateral: CTA - Cardiovascular Heart Sounds: Present: S1 & S2. Absent: rub, click - Extremities Extremities: abnormal Extremity abnormal: cold, pulses diminished Peripheral Pulses: abnormal - Abdominal General gastrointestinal: Present: soft, non-tender, non-distended, normal bowel sounds Male genitourinary: Present: normal - Integumentary Integumentary: Present: clear, warm, dry - Musculoskeletal Musculoskeletal: generalized weakness - Psychiatric Psychiatric: appropriate mood/affect, intact judgment & insight - Neurologic Neurologic: CNII-XII intact, moves all extremities Results - Labs CBC & Chem 7: 12/02/16 05:12 12/02/16 05:12 Assessment and Plan - Patient Problems (1) Occlusion of artery of lower extremity Current Visit: Yes Status: Acute Plan to address problem: Vascular surgery consulted, Pt to OR emergently for revascularization, Admit to ICU, Heparin drip, supportive care. The high probability of a clinically significant, sudden or life threatening deterioration of the [cardiac, vascular] system(s) required my full and direct attention, intervention and personal management. The aggregate critical care time was [60] minutes. This time is in addition to time spent performing reported procedures but includes the following: [x] Data Review and interpretation [x] Patient assessment and monitoring of vital signs [x] Documentation [x] Medication orders and management (2) HTN (hypertension) Current Visit: Yes Status: Acute Qualifiers: Hypertension type: H Plan to address problem: monitor bp q shift, continue current therapy (3) CAD (coronary artery disease) Current Visit: No Status: Chronic Qualifiers: Coronary Disease-Associated Artery/Lesion type: C [place] vs. transplanted heart: N Associated angina: A Plan to address problem: Stable, no angina at this time, continue anti platelet therapy, as per vascular team. supportive care. (4) DVT prophylaxis Current Visit: Yes Status: Acute
[2016-12-01] MEDS ORDERED: MILK OF MAGNESIA PO PRN (15:50)
[2016-12-01] MEDS ORDERED: ALUM-MAG HYDROX-SIMETH 200-200-20MG/5ML PO PRN (15:50)
[2016-12-01] MEDS ORDERED: DULCOLAX PR PRN (15:50)
[2016-12-01] MEDS ORDERED: NITROGLYCERIN SYRINGE 0 ML ONE (16:10)
[2016-12-01 16:19] LABS: Basophils % (Auto) 1.2 % (0.0-1.8); Eosinophils % (Auto) 1.9 % (0.0-4.3); Hematocrit 41.5 % (35.5-45.6); Hemoglobin 13.5 gm/dl (11.8-15.2); Mean Corpuscular HGB Conc 32 % (32-34); Mean Corpuscular Hemoglobin 29 pg (28-32); Mean Corpuscular Volume 89 fl (84-94); Platelet Count 365 K/mm3 (140-440); Red Blood Count 4.65 M/mm3 (3.65-5.03); Red Cell Distribution Width 15.5 % (13.2-15.2); White Blood Count 9.3 K/mm3 (4.5-11.0)
--- NOTE | 2016-12-01 16:22 | Anesthesia Consultation ---
Addendum entered and electronically signed by DONNIE CASTREJON PA 12/01/16 16:24: Per H&P patient has cardiac stents Original Note: Anesthesia Consult and Med Hx - Airway Anesthetic Teeth Evaluation: Poor ROM Head & Neck: Adequate Mental/Hyoid Distance: Adequate Mallampati Class: Class II Intubation Access Assessment: Good - Pulmonary Exam CTA: Yes - Cardiac Exam Cardiac Exam: RRR (3 NV's in past 3 wks) - Pre-Operative Health Status ASA Pre-Surgery Classification: ASA4 Proposed Anesthetic Plan: General - Pulmonary Hx Smoking: Yes Hx Asthma: No COPD: No Hx Pneumonia: No - Cardiovascular System Hx Hypertension: Yes Hx Heart Attack/AMI: Yes (3 NV's since November 14; hx stoke L side weakness) Hx Heart Murmur: No (;high cholesterol) Hx Peripheral Vascular Disease: Yes (left leg cold; on plavix and clopridigil) - Central Nervous System CVA: Yes Hx Psychiatric Problems: Yes - Gastrointestinal Hx Gastroesophageal Reflux Disease: Yes - Endocrine Hx End Stage Renal Disease: No - Hematic Hx Anemia: No - Other Systems Hx Cancer: No
--- NOTE | 2016-12-01 16:23 | Anesthesia Day of Surgery ---
Anesthesia Day of Surgery - Day of Surgery Patient Examined: Yes Patient H&P Reviewed: Yes Patient is NPO: No Beta Blockers: Yes Cardiac Clearance: No (no 3 recent NV"s - emergency surgery)
[2016-12-01] MEDS ORDERED: ANCEF/STERILE WATER 2 GM/20 ML 2 GM/20 ML SYRINGE IV ONE (16:24)
[2016-12-01] MEDS ORDERED: PEPCID IV ONE (16:24)
[2016-12-01] MEDS ORDERED: ZOFRAN ONE (16:25)
[2016-12-01] MEDS ORDERED: NITROSTAT SL PRN (16:27)
[2016-12-01 16:30] LABS: Partial Thromboplastin Time 25.9 Sec. (24.2-36.6)
[2016-12-01] MEDS ORDERED: ZOFRAN IV PRN (16:45)
[2016-12-01 16:51] LABS: Anion Gap 17 mmol/L; BUN/Creatinine Ratio 24.28; Blood Urea Nitrogen 17 mg/dL (9-20); Calcium 9.3 mg/dL (8.4-10.2); Carbon Dioxide 25 mmol/L (22-30); Chloride 94.5 mmol/L (98-107); Glucose 131 mg/dL (75-100); Potassium 3.9 mmol/L (3.6-5.0); Sodium 133 mmol/L (137-145)
[2016-12-01] MEDS ORDERED: MARCAINE-EPI 0.5%-1:200,000 INFILTRATI ONE (17:02)
[2016-12-01] MEDS ORDERED: NACL 0.9% 500 ML IRRIGATION ONE (17:02)
[2016-12-01] MEDS ORDERED: HEPARIN 10,000 UNITS/10 ML IV ONE (17:02)
[2016-12-01] MEDS ORDERED: NACL 0.9% IR ONE (17:02)
[2016-12-01] MEDS ORDERED: NACL 0.9% 100 ML ONE (17:09)
[2016-12-01] MEDS ORDERED: NEO SYNEPHRINE ONE (17:09)
[2016-12-01] MEDS ORDERED: HEPARIN 10,000 UNITS/10 ML ONE (17:15)
[2016-12-01] MEDS ORDERED: NACL 0.9% 1000 ML 0 ML ONE (17:28)
[2016-12-01] MEDS ORDERED: NACL 0.9% 1000 ML 1,000 ML ONE (17:42)
[2016-12-01] MEDS ORDERED: DILAUDID ONE (18:22)
[2016-12-01] MEDS ORDERED: ROBINUL ONE (18:46)
[2016-12-01] MEDS ORDERED: NEOSTIGMINE ONE (18:46)
[2016-12-01] MEDS ORDERED: PROVENTIL IH ONE ×2 (19:00→19:30)
--- NOTE | 2016-12-01 19:06 | Operative Report ---
Operative Report Operative Report: Operative note: Date: 12/01/2016 Preoperative diagnosis: Left leg ischemia Postoperative diagnosis: Same. Operation: Right femoral embolectomy, right leg angiogram with runoff, 4 compartment fasciotomy Surgeon: Kristel Kothari. Asst.: DUGLAS MURRAY Anesthesia: Gen. EBL: 75 mL Fluid replacement:1300cc of crystalloids Findings: Thromboembolus of left common femoral artery Indications: 56-year-old gentleman was sent to the hospital by per primary care physician that patient went to see. He was complaining of left leg pain pain for 3 days and was sent to the hospital for acute ischemia. I met the patient in the ultrasound room that showed occlusion at the left common femoral artery. He did not have left femoral pulse, his leg was mottled with absent motor and sensory. Patient was explained that he needs urgent procedure for limb salvage. He was explained all risks and benefits of procedure including higher risk for this particular patient due to recent PA. He understood, agreed and signed informed consent. Operative details: Patient was brought to the operating room and placed in supine position. Anesthesia administered by an anesthesia provider. He is left leg was prepped and draped in sterile fashion. Timeout was performed and all skin members in agreement. Left groin transverse incision below inguinal ligament was created with #10 blade and carried down with electrocautery. Crossing vessels were clipped and divided. Femoral fascia was opened in a vertical fashion and dissected with electrocautery to femoral vessels. Common femoral artery was dissected and using right angle surrounded with Silastic vessel loops. Superficial femoral artery and profunda were dissected also and surrounded with Silastic vessel loops. Patient was heparinized with 5000 units of heparin and let circulate for for 3 minutes. Arteriotomy was made with 11 blade. We inserted a #6 Robin proximally and removed significant amount of clot until excellent forward bleeding was seen. We then passed #4 and #3 Robin's in the SFA and profunda. There was excellent backbleeding from profunda, however was sluggish from SFA. We did not remove any clot from distal passes. We decided to perform angiogram. Arteriotomy was closed with 6-0 Prolene. We inserted a 20-gauge Angiocath in the common femoral artery and performed angiograms. There was some chronic disease of SFA without any flow-limiting stenosis and three-vessel runoff. At this point we prepared Angiocath inserted point with 6- 0 Prolene and closed femoral incision with Vicryl and Monocryl. Applied glue on the skin. We performed prophylactic 4 compartment fasciotomy with lateral and medial skin incisions. There were no muscle bulging, all muscles were pink, healthy looking , king. Incisions were approximated with 2-0 nylon vertical mattresses.
--- NOTE | 2016-12-01 19:06 | Post Anesthesia Evaluation ---
- Post Anesthesia Evaluation Patient Participated: Yes Airway Patent: Yes Stable Respiratory Function: Yes Nausea/Vomiting: No Temp > 96.8F: Yes Pain Manageable: Yes Adequeate Hydration: Yes Anesthesia Complications: No Block Receding Appropriately: Not Applicable Patient on Ventilator: No Other Comments: given a breathing treatment and dose of solumedrol in PACU for SOB.
[2016-12-01] MEDS ORDERED: VERSED IV ONE ×2 (19:25)
[2016-12-01 19:41] LABS: Hematocrit 36.9 % (35.5-45.6); Hemoglobin 11.9 gm/dl (11.8-15.2)
[2016-12-01 19:56] LABS: INR 1.16 (0.87-1.13)
[2016-12-01 20:02] LABS: Partial Thromboplastin Time 63.6 Sec. (24.2-36.6)
[2016-12-01] MEDS: DILAUDID IV PRN ×2 (20:51→22:31)
--- NOTE | 2016-12-01 21:58 | Vascular Lab Report ---
LEFT LOWER EXTREMITY ARTERIAL DUPLEX: REASON FOR EXAM: Acutely ischemic left foot. COMMENTS ON THE LEFT: Monophasic waveforms are seen proximally. Monophasic waveforms are seen distally. No noted in the arterial tibial artery. Thrombus noted in the external iliac and common femoral artery. Findings are consistent with abnormal perfusion. Findings are inconsistent with the ability to heal distal wounds. IMPRESSION: LEFT:Severely abnormal flow in the left lower extremity.
[2016-12-01] MEDS ORDERED: HEPARIN/ 0.45% NACL-25,000 UNIT/500 ML 25,000 UNIT/500 ML BAG IV SCH (22:30)
[2016-12-02] MEDS: DILAUDID IV PRN (00:05)
[2016-12-02] MEDS: NORCO 5/325 PO PRN ×2 (00:15→08:37)
[2016-12-02] MEDS: PEPCID PO SCH ×3 (00:34→22:12)
[2016-12-02] MEDS: LOPRESSOR PO SCH ×3 (00:35→22:12)
[2016-12-02] MEDS: NACL 0.9% 1000 ML 1,000 ML IV SCH (00:38)
--- NOTE | 2016-12-02 02:17 | Progress Note ---
Assessment and Plan Postop day 1. Status post left leg embolectomy/fasciotomies. Left leg is well vascularized. Plan: Continue heparin drip. Cardiology evaluation. Subjective Date of service: 12/02/16 Principal diagnosis: Acute ischemia of the left foot Interval history: No complaints. Sleeping comfortably Objective - Exam Narrative Exam: left foot warm, pink DS over the DP Leg with Kurlex wrap clean and dry. - Constitutional Vitals: Vital Signs - 12hr 12/01/16 12/01/16 12/01/16 18:50 18:55 19:00 Temperature 99.6 F Pulse Rate 108 H 102 H 109 H Respiratory 18 11 L 18 Rate Blood Pressure 124/72 110/60 102/59 O2 Sat by Pulse 97 96 98 Oximetry 12/01/16 12/01/16 12/01/16 19:05 19:10 19:15 Temperature Pulse Rate 97 H 97 H 114 H Respiratory 16 16 20 Rate Blood Pressure 102/69 108/63 104/70 O2 Sat by Pulse 100 88 100 Oximetry 12/01/16 12/01/16 12/01/16 19:30 19:45 20:00 Temperature Pulse Rate 105 H 92 H 91 H Respiratory 15 16 18 Rate Blood Pressure 93/54 101/62 108/67 O2 Sat by Pulse 99 100 100 Oximetry 12/01/16 12/01/16 12/01/16 20:15 20:30 20:45 Temperature 99.1 F Pulse Rate 96 H 97 H 95 H Respiratory 11 L 16 15 Rate Blood Pressure 118/73 112/68 118/68 O2 Sat by Pulse 100 100 98 Oximetry 12/01/16 12/01/16 12/01/16 20:51 21:00 21:15 Temperature Pulse Rate 93 H 92 H Respiratory 13 16 15 Rate Blood Pressure 101/61 104/62 O2 Sat by Pulse 97 97 Oximetry 12/01/16 12/01/16 12/01/16 21:21 21:30 21:45 Temperature Pulse Rate 90 91 H Respiratory 14 15 15 Rate Blood Pressure 103/64 109/69 O2 Sat by Pulse 97 97 Oximetry 12/01/16 12/01/16 12/01/16 22:00 22:30 22:31 Temperature 98.9 F Pulse Rate 90 94 H Respiratory 15 14 15 Rate Blood Pressure 117/74 117/73 O2 Sat by Pulse 97 97 Oximetry 0412/01/16 12/02/16 23:00 23:01 00:05 Temperature Pulse Rate 89 Respiratory 14 14 21 Rate Blood Pressure 112/70 O2 Sat by Pulse 97 Oximetry 12/02/16 00:35 Temperature Pulse Rate 107 H Respiratory Rate Blood Pressure 117/75 O2 Sat by Pulse Oximetry - Labs CBC & Chem 7: 12/01/16 19:29 12/01/16 16:04 Labs: Abnormal lab results 12/01/16 12/01/16 Range/Units 19:29 22:02 INR 1.16 H (0.87-1.13) APTT 63.6 H* (24.2-36.6) Sec. Heparin Anti-Xa Level < 0.10 L (0.3-0.7) U.I./ml
[2016-12-02 05:22] LABS: Hematocrit 35.2 % (35.5-45.6); Hemoglobin 11.7 gm/dl (11.8-15.2); Mean Corpuscular HGB Conc 33 % (32-34); Mean Corpuscular Hemoglobin 29 pg (28-32); Mean Corpuscular Volume 88 fl (84-94); Platelet Count 290 K/mm3 (140-440); Red Blood Count 3.99 M/mm3 (3.65-5.03); Red Cell Distribution Width 15.3 % (13.2-15.2); White Blood Count 11.7 K/mm3 (4.5-11.0)
[2016-12-02 05:43] LABS: Anion Gap 18 mmol/L; BUN/Creatinine Ratio 21.66; Blood Urea Nitrogen 13 mg/dL (9-20); Calcium 8.4 mg/dL (8.4-10.2); Carbon Dioxide 22 mmol/L (22-30); Chloride 101.5 mmol/L (98-107); Glucose 179 mg/dL (75-100); Potassium 4.3 mmol/L (3.6-5.0); Sodium 137 mmol/L (137-145)
[2016-12-02] MEDS: DUONEB 0.5 MG-3 MG/3 ML SOLN IH SCH ×5 (06:17→20:09)
--- NOTE | 2016-12-02 09:27 | Consultation ---
History of Present Illness - Reason for Consult Consult date: 12/02/16 Post Op ICU follow up Requesting physician: DUGLAS MURRAY - History of Present Illness 56 y/o male with CAD, PVD, former smoker, admitted to the ICU for post op follow up. Vascular has seen this am. Remains on Heparin drip. Remainder is negative. Past History Past Medical History: CAD, hyperlipidemia Social history: smoking (smoked for 47 years) Medications and Allergies Allergies Allergy/AdvReac Type Severity Reaction Status Date / Time No Known Allergies Allergy Unverified 11/27/15 12:06 Home Medications Medication Instructions Recorded Confirmed Last Taken Type Acetaminophen/Codeine [Tylenol 1 tab PO Q6H PRN #15 tab 11/27/15 11/24/16 Unknown Rx /Codeine # 3 tab] Aspirin EC [Aspirin Enteric Coated 325 mg PO QDAY #30 tablet 11/29/16 Unknown Rx TAB] AtorvaSTATin [Lipitor] 40 mg PO DAILY #30 tablet 11/29/16 Unknown Rx Clopidogrel [Plavix] 75 mg PO QDAY #30 tablet 11/29/16 Unknown Rx Famotidine [Pepcid] 20 mg PO BID #60 tablet 11/29/16 Unknown Rx Folic Acid [Folvite] 1 mg PO QDAY #30 tablet 11/29/16 Unknown Rx Lisinopril [Zestril TAB] 10 mg PO QDAY #30 tablet 11/29/16 Unknown Rx Metoprolol [Lopressor TAB] 25 mg PO BID #30 tablet 11/29/16 Unknown Rx Nitroglycerin [Nitrostat] 0.4 mg SL .Q5MIN PRN #30 tablet 11/29/16 Unknown Rx Thiamine [Vitamin B-1] 100 mg PO QDAY #30 tablet 11/29/16 Unknown Rx Active Meds: Active Medications Acetaminophen/Hydrocodone Bitart ([place] 5/325) 1 each PO Q4H PRN PRN Reason: Pain, Moderate (4-6) Last Admin: 12/02/16 00:15 Dose: 1 each Acetaminophen/Hydrocodone Bitart ([place] 5/325) 2 each PO Q4H PRN PRN Reason: Pain , Severe (7-10) Last Admin: 12/02/16 08:37 Dose: 2 each Al Hydrox/Mg Hydrox/Simethicone (Alum-Mag Hydrox-Simeth [id number]/5ml) 30 ml PO Q4H PRN PRN Reason: Indigestion Albuterol/Ipratropium (Duoneb 0.5 Mg-3 Mg/3 Ml Soln) 1 ampul IH Q6HRT [facility] Last Admin: 12/02/16 07:22 Dose: 1 ampul Atorvastatin Calcium (Lipitor) 40 mg PO DAILY [facility] Bisacodyl (Dulcolax) 10 mg MO QDAY PRN PRN Reason: constipation unrelieved by MOM Clopidogrel Bisulfate (Plavix) 75 mg PO QDAY [facility] Famotidine (Pepcid) 20 mg PO BID [facility] Last Admin: 12/02/16 00:34 Dose: 20 mg Folic Acid (Folvite) 1 mg PO QDAY [facility] Hydromorphone HCl (Dilaudid) 0.5 mg IV Q10MIN PRN PRN Reason: Pain , Severe (7-10) Stop: 12/04/16 16:46 Last Admin: 12/02/16 00:05 Dose: 0.5 mg Sodium Chloride (Nacl 0.9% 1000 Ml) 1,000 mls @ 75 mls/hr IV DIRECT [facility] Last Admin: 12/02/16 00:38 Dose: 75 mls/hr Heparin Sodium/Sodium Chloride (Heparin/ 0.45% Nacl-25,000 Unit/500 Ml) 25,000 unit in 500 mls @ 20 mls/hr IV TITR SHAQ; 1,000 UNITS/HR PRN Reason: Protocol Last Titration: 12/02/16 07:56 Dose: 1,000 units/hr, 20 mls/hr Lisinopril (Zestril) 10 mg PO QDAY [facility] Magnesium Hydroxide (Milk Of Magnesia) 30 ml PO Q4H PRN PRN Reason: Constipation Metoprolol Tartrate (Lopressor) 25 mg PO BID [facility] Last Admin: 12/02/16 00:35 Dose: 25 mg Morphine Sulfate (Morphine) 2 mg IV Q1HR PRN PRN Reason: Pain Nitroglycerin (Nitrostat) 0.4 mg SL .Q5MIN PRN PRN Reason: Chest Pain Thiamine HCl (Vitamin B-1) 100 mg PO QDAY [facility] Review of Systems All systems: negative Constitutional: other (per patient left leg is still cold and has no tactile sensation) Exam - Constitutional Vitals: Temp Pulse Resp BP Pulse Ox 97.3 F L 88 15 117/75 95 12/02/16 08:00 12/02/16 07:32 12/02/16 08:37 12/02/16 00:35 12/02/16 07:22 General appearance: Present: no acute distress - EENT Eyes: Present: PERRL, EOM intact ENT: hearing intact - Neck Neck: Present: supple, normal ROM - Respiratory Respiratory effort: normal Respiratory: bilateral: CTA - Cardiovascular Rhythm: regular Heart Sounds: Present: S1 & S2 - Extremities Extremities: abnormal (post surgical changes on left leg, alcantara for pulses) - Abdominal General gastrointestinal: Present: soft, non-tender, normal bowel sounds Male genitourinary: Present: deferred - Rectal Rectal Exam: deferred Results - Labs CBC & Chem 7: 12/02/16 05:12 12/02/16 05:12 Labs: Abnormal lab results 12/01/16 12/01/16 12/02/16 Range/Units 19:29 22:02 05:12 WBC 11.7 H (4.5-11.0) K/mm3 Hgb 11.7 L (11.8-15.2) gm/dl Hct 35.2 L (35.5-45.6) % RDW 15.3 H (13.2-15.2) % INR 1.16 H (0.87-1.13) APTT 63.6 H* (24.2-36.6) Sec. Heparin Anti-Xa Level < 0.10 L (0.3-0.7) U.I./ml Creatinine (0.8-1.5) mg/dL Glucose (75-100) mg/dL 12/02/16 Range/Units 05:12 WBC (4.5-11.0) K/mm3 Hgb (11.8-15.2) gm/dl Hct (35.5-45.6) % RDW (13.2-15.2) % INR (0.87-1.13) APTT (24.2-36.6) Sec. Heparin Anti-Xa Level (0.3-0.7) U.I./ml Creatinine 0.6 L (0.8-1.5) mg/dL Glucose 179 H (75-100) mg/dL - Imaging and Cardiology Chest x-ray: image reviewed (hyperinflation, consistent with air trapping maybe some chronic interstitial changes) Assessment and Plan 56 y/o male with CAD, PVD, status post vascular surgery on yesterday, admitted for post-op monitoring. 1. Follow up any new vascular surgery recs 2. Per vascular, they have requested cardiac evaluation 3. If surgery ok with progression of leg, need to consider transfer. 4. oxygen turned off
--- NOTE | 2016-12-02 09:27 | XRay Report ---
AP CHEST :12/01/16 19:39 CLINICAL: Shortness of breath. COMPARISON:None. FINDINGS: Normal heart and pulmonary vasculature. The lungs are mildly hyperexpanded with mildly prominent markings. A band of subsegmental atelectasis versus scar in the right lung base. No airspace disease. The bones and soft tissues are normal. IMPRESSION: Mild COPD and right basal atelectasis versus scar. No CHF or pneumonia.
[2016-12-02] MEDS ORDERED: HEPARIN/ 0.45% NACL-25,000 UNIT/500 ML 500 ML IV SCH (10:00)
[2016-12-02] MEDS: FOLVITE PO SCH (10:46)
[2016-12-02] MEDS: ZESTRIL PO SCH (10:47)
[2016-12-02] MEDS: VITAMIN B-1 PO SCH (10:47)
[2016-12-02] MEDS: PLAVIX PO SCH (10:47)
[2016-12-02] MEDS: MORPHINE IV PRN ×4 (10:48→22:14)
[2016-12-02] MEDS: HEPARIN/ 0.45% NACL-25,000 UNIT/500 ML 25,000 UNIT/500 ML BAG IV SCH (10:56)
--- NOTE | 2016-12-02 11:01 | Progress Note ---
Assessment and Plan Assessment and plan: Acute ischemia left leg s/p embolectomy and fasciotomy left lower extremity vascular surgery Peripheral vascular disease Coronary artery disease Hypertension Hyperlipidemia History Interval history: Left leg ischemia from thromboembolus left femoral artery, s/p thrombectomy , fasciotomy yesterday. On Heparin drip, Plavix Coronary artery disease, stable Hyperlipidemia PVD s/p procedure yesterday. Hypertension. BP normal Hospitalist Physical - Physical exam Narrative exam: Gen: Not in acute distress, HEENT: Normocephalic, atraumatic Neck: supple, no JVD Lungs: Clear to auscultation bilaterally, no wheeze Heart S1-S2 regular, no murmurs, rubs or gallop, Abdomen: soft, non tender,non-distended, normal bowel sounds Ext: Left leg covered with dressing, bandage Neuro: Awake, alert.oriented x 3, no focal neurological signs, Psych: normal mood - Constitutional Vitals: Temp Pulse Resp BP Pulse Ox 97.3 F L 91 H 16 103/60 99 12/02/16 08:00 12/02/16 10:47 12/02/16 10:48 12/02/16 10:47 12/02/16 09:11 General appearance: Present: no acute distress Results - Labs CBC & Chem 7: 12/03/16 05:15 12/02/16 05:12 Labs: Laboratory Last Values WBC 11.7 K/mm3 (4.5-11.0) H 12/02/16 05:12 RBC 3.99 M/mm3 (3.65-5.03) 12/02/16 05:12 Hgb 11.7 gm/dl (11.8-15.2) L 12/02/16 05:12 Hct 35.2 % (35.5-45.6) L 12/02/16 05:12 MCV 88 fl (84-94) 12/02/16 05:12 MCH 29 pg (28-32) 12/02/16 05:12 MCHC 33 % (32-34) 12/02/16 05:12 RDW 15.3 % (13.2-15.2) H 12/02/16 05:12 Plt Count 290 K/mm3 (140-440) 12/02/16 05:12 Lymph % (Auto) 15.2 % (13.4-35.0) 12/01/16 16:04 [place] % (Auto) 10.9 % (0.0-7.3) H 12/01/16 16:04 Eos % (Auto) 1.9 % (0.0-4.3) 12/01/16 16:04 Baso % (Auto) 1.2 % (0.0-1.8) 12/01/16 16:04 Lymph # 1.4 K/mm3 (1.2-5.4) 12/01/16 16:04 [place] # 1.0 K/mm3 (0.0-0.8) H 12/01/16 16:04 Eos # 0.2 K/mm3 (0.0-0.4) 12/01/16 16:04 Baso # 0.1 K/mm3 (0.0-0.1) 12/01/16 16:04 Seg Neutrophils % 70.8 % (40.0-70.0) H 12/01/16 16:04 Seg Neutrophils # 6.6 K/mm3 (1.8-7.7) 12/01/16 16:04 PT 14.7 Sec. (12.2-14.9) 12/01/16 19:29 INR 1.16 (0.87-1.13) H 12/01/16 19:29 APTT 63.6 Sec. (24.2-36.6) H* 12/01/16 19:29 Heparin Anti-Xa Level 0.32 U.I./ml (0.3-0.7) 12/02/16 05:12 Sodium 137 mmol/L (137-145) 12/02/16 05:12 Potassium 4.3 mmol/L (3.6-5.0) 12/02/16 05:12 Chloride 101.5 mmol/L (98-107) 12/02/16 05:12 Carbon Dioxide 22 mmol/L (22-30) 12/02/16 05:12 Anion Gap 18 mmol/L 12/02/16 05:12 BUN 13 mg/dL (9-20) 12/02/16 05:12 Creatinine 0.6 mg/dL (0.8-1.5) L 12/02/16 05:12 Estimated GFR > 60 ml/min 12/02/16 05:12 BUN/Creatinine Ratio 21.66 % 12/02/16 05:12 Glucose 179 mg/dL (75-100) H 12/02/16 05:12 Calcium 8.4 mg/dL (8.4-10.2) 12/02/16 05:12 Blood Type B POSITIVE 12/01/16 16:04 Antibody Screen Negative 12/01/16 16:04
--- NOTE | 2016-12-02 15:40 | Progress Note ---
Assessment and Plan Postop day 1. Status post left leg embolectomy/fasciotomies. Left leg is well vascularized. Patient is stable Plan: Continue heparin drip. Okay to transfer to the floor. Subjective Principal diagnosis: Acute ischemia of the left foot Interval history: And is complaining of left foot pain. Able to move toes. Objective - Exam Narrative Exam: left foot warm, pink DS over the DP Leg with Kurlex wrap clean and dry. - Constitutional Vitals: Vital Signs - 12hr 12/02/16 12/02/16 12/02/16 03:41 03:51 04:00 Temperature Pulse Rate 89 88 92 H Pulse Rate [ Anterior Bilateral Throughout] Respiratory 11 L 15 10 L Rate Respiratory Rate [Anterior Bilateral Throughout] Blood Pressure 111/64 111/64 110/68 O2 Sat by Pulse 98 99 98 Oximetry 12/02/16 12/02/16 12/02/16 04:11 04:21 04:31 Temperature Pulse Rate 90 90 91 H Pulse Rate [ Anterior Bilateral Throughout] Respiratory 15 17 15 Rate Respiratory Rate [Anterior Bilateral Throughout] Blood Pressure 110/68 110/68 110/68 O2 Sat by Pulse 99 99 98 Oximetry 12/02/16 12/02/16 12/02/16 04:41 04:51 05:00 Temperature Pulse Rate 90 87 87 Pulse Rate [ Anterior Bilateral Throughout] Respiratory 13 15 15 Rate Respiratory Rate [Anterior Bilateral Throughout] Blood Pressure 110/68 110/68 111/64 O2 Sat by Pulse 98 98 99 Oximetry 12/02/16 12/02/16 12/02/16 05:11 05:21 05:31 Temperature Pulse Rate 103 H 87 86 Pulse Rate [ Anterior Bilateral Throughout] Respiratory 18 16 17 Rate Respiratory Rate [Anterior Bilateral Throughout] Blood Pressure 111/64 111/64 111/64 O2 Sat by Pulse 99 98 99 Oximetry 12/02/16 12/02/16 12/02/16 05:41 05:51 06:00 Temperature Pulse Rate 83 85 89 Pulse Rate [ Anterior Bilateral Throughout] Respiratory 14 20 23 Rate Respiratory Rate [Anterior Bilateral Throughout] Blood Pressure 111/64 111/64 111/59 O2 Sat by Pulse 99 100 99 Oximetry 12/02/16 12/02/16 12/02/16 06:11 06:21 06:31 Temperature Pulse Rate 86 87 87 Pulse Rate [ Anterior Bilateral Throughout] Respiratory 17 17 17 Rate Respiratory Rate [Anterior Bilateral Throughout] Blood Pressure 111/59 111/59 111/59 O2 Sat by Pulse 98 99 99 Oximetry 12/02/16 12/02/16 12/02/16 06:41 06:51 07:01 Temperature Pulse Rate 86 98 H 93 H Pulse Rate [ Anterior Bilateral Throughout] Respiratory 16 14 20 Rate Respiratory Rate [Anterior Bilateral Throughout] Blood Pressure 111/59 111/59 111/59 O2 Sat by Pulse 99 99 98 Oximetry 12/02/16 12/02/16 12/02/16 07:11 07:21 07:22 Temperature Pulse Rate 92 H 87 Pulse Rate [ 92 H Anterior Bilateral Throughout] Respiratory 14 16 Rate Respiratory 18 Rate [Anterior Bilateral Throughout] Blood Pressure 111/59 111/59 O2 Sat by Pulse 98 98 95 Oximetry 12/02/16 12/02/16 12/02/16 07:31 07:32 07:41 Temperature Pulse Rate 93 H 96 H Pulse Rate [ 88 Anterior Bilateral Throughout] Respiratory 18 13 Rate Respiratory 18 Rate [Anterior Bilateral Throughout] Blood Pressure 111/59 111/59 O2 Sat by Pulse 97 97 Oximetry 12/02/16 12/02/16 12/02/16 07:51 08:00 08:11 Temperature 97.3 F L Pulse Rate 88 93 H 87 Pulse Rate [ Anterior Bilateral Throughout] Respiratory 21 21 16 Rate Respiratory Rate [Anterior Bilateral Throughout] Blood Pressure 111/59 105/64 105/64 O2 Sat by Pulse 97 97 99 Oximetry 12/02/16 12/02/16 12/02/16 08:20 08:31 08:37 Temperature Pulse Rate 89 98 H Pulse Rate [ Anterior Bilateral Throughout] Respiratory 16 18 15 Rate Respiratory Rate [Anterior Bilateral Throughout] Blood Pressure 105/64 105/64 O2 Sat by Pulse 100 100 Oximetry 12/02/16 12/02/16 12/02/16 08:41 08:51 09:00 Temperature Pulse Rate 94 H 89 86 Pulse Rate [ Anterior Bilateral Throughout] Respiratory 19 17 17 Rate Respiratory Rate [Anterior Bilateral Throughout] Blood Pressure 105/64 105/64 99/60 O2 Sat by Pulse 99 99 99 Oximetry 12/02/16 12/02/16 12/02/16 09:11 09:21 09:31 Temperature Pulse Rate 86 85 82 Pulse Rate [ Anterior Bilateral Throughout] Respiratory 16 17 17 Rate Respiratory Rate [Anterior Bilateral Throughout] Blood Pressure 99/60 99/60 99/60 O2 Sat by Pulse 99 96 96 Oximetry 12/02/16 12/02/16 12/02/16 09:41 09:51 10:00 Temperature Pulse Rate 90 88 80 Pulse Rate [ Anterior Bilateral Throughout] Respiratory 13 13 17 Rate Respiratory Rate [Anterior Bilateral Throughout] Blood Pressure 99/60 99/60 103/60 O2 Sat by Pulse 98 96 95 Oximetry 12/02/16 12/02/16 12/02/16 10:11 10:21 10:31 Temperature Pulse Rate 84 77 80 Pulse Rate [ Anterior Bilateral Throughout] Respiratory 16 15 15 Rate Respiratory Rate [Anterior Bilateral Throughout] Blood Pressure 99/60 99/60 99/60 O2 Sat by Pulse 98 98 97 Oximetry 12/02/16 12/02/16 12/02/16 10:41 10:47 10:48 Temperature Pulse Rate 104 H 91 H Pulse Rate [ Anterior Bilateral Throughout] Respiratory 16 16 Rate Respiratory Rate [Anterior Bilateral Throughout] Blood Pressure 99/60 103/60 O2 Sat by Pulse 99 Oximetry 12/02/16 12/02/16 12/02/16 10:51 11:00 11:01 Temperature Pulse Rate 89 75 82 Pulse Rate [ Anterior Bilateral Throughout] Respiratory 16 8 L Rate Respiratory Rate [Anterior Bilateral Throughout] Blood Pressure 99/60 102/63 123/71 O2 Sat by Pulse 98 99 Oximetry 12/02/16 12/02/16 12/02/16 11:11 11:18 11:21 Temperature Pulse Rate 86 89 Pulse Rate [ Anterior Bilateral Throughout] Respiratory 12 15 13 Rate Respiratory Rate [Anterior Bilateral Throughout] Blood Pressure 103/60 103/60 O2 Sat by Pulse 98 99 Oximetry 12/02/16 12/02/16 12/02/16 11:31 11:41 11:51 Temperature Pulse Rate 75 80 99 H Pulse Rate [ Anterior Bilateral Throughout] Respiratory 18 15 14 Rate Respiratory Rate [Anterior Bilateral Throughout] Blood Pressure 103/60 123/71 123/71 O2 Sat by Pulse 98 96 98 Oximetry 12/02/16 12/02/16 12/02/16 12:01 12:11 12:21 Temperature Pulse Rate 98 H 88 94 H Pulse Rate [ Anterior Bilateral Throughout] Respiratory 16 11 L 20 Rate Respiratory Rate [Anterior Bilateral Throughout] Blood Pressure 123/71 123/71 123/71 O2 Sat by Pulse 97 99 97 Oximetry 12/02/16 12/02/16 12/02/16 12:31 12:41 12:51 Temperature Pulse Rate 85 92 H 81 Pulse Rate [ Anterior Bilateral Throughout] Respiratory 18 20 16 Rate Respiratory Rate [Anterior Bilateral Throughout] Blood Pressure 123/71 105/66 105/66 O2 Sat by Pulse 97 97 95 Oximetry 12/02/16 12/02/16 12/02/16 13:00 13:11 13:21 Temperature Pulse Rate 80 81 77 Pulse Rate [ Anterior Bilateral Throughout] Respiratory 15 14 16 Rate Respiratory Rate [Anterior Bilateral Throughout] Blood Pressure 98/62 98/62 98/62 O2 Sat by Pulse 95 96 95 Oximetry 12/02/16 12/02/16 12/02/16 13:31 13:41 13:51 Temperature Pulse Rate 78 76 77 Pulse Rate [ Anterior Bilateral Throughout] Respiratory 15 15 15 Rate Respiratory Rate [Anterior Bilateral Throughout] Blood Pressure 98/62 98/62 98/62 O2 Sat by Pulse 94 94 95 Oximetry 12/02/16 12/02/16 12/02/16 14:00 14:11 14:21 Temperature Pulse Rate 74 75 77 Pulse Rate [ Anterior Bilateral Throughout] Respiratory 15 15 13 Rate Respiratory Rate [Anterior Bilateral Throughout] Blood Pressure 102/63 102/63 102/63 O2 Sat by Pulse 95 95 93 Oximetry 12/02/16 12/02/16 12/02/16 14:31 14:41 14:51 Temperature Pulse Rate 74 78 85 Pulse Rate [ Anterior Bilateral Throughout] Respiratory 15 16 17 Rate Respiratory Rate [Anterior Bilateral Throughout] Blood Pressure 102/63 102/63 102/63 O2 Sat by Pulse 95 94 97 Oximetry 12/02/16 12/02/16 15:01 15:34 Temperature Pulse Rate 90 Pulse Rate [ Anterior Bilateral Throughout] Respiratory 17 20 Rate Respiratory Rate [Anterior Bilateral Throughout] Blood Pressure 113/58 O2 Sat by Pulse 98 Oximetry - Labs CBC & Chem 7: 12/02/16 05:12 12/02/16 05:12 Labs: Abnormal lab results 12/01/16 12/01/16 12/02/16 Range/Units 19:29 22:02 05:12 WBC 11.7 H (4.5-11.0) K/mm3 Hgb 11.7 L (11.8-15.2) gm/dl Hct 35.2 L (35.5-45.6) % RDW 15.3 H (13.2-15.2) % INR 1.16 H (0.87-1.13) APTT 63.6 H* (24.2-36.6) Sec. Heparin Anti-Xa Level < 0.10 L (0.3-0.7) U.I./ml Creatinine (0.8-1.5) mg/dL Glucose (75-100) mg/dL 12/02/16 Range/Units 05:12 WBC (4.5-11.0) K/mm3 Hgb (11.8-15.2) gm/dl Hct (35.5-45.6) % RDW (13.2-15.2) % INR (0.87-1.13) APTT (24.2-36.6) Sec. Heparin Anti-Xa Level (0.3-0.7) U.I./ml Creatinine 0.6 L (0.8-1.5) mg/dL Glucose 179 H (75-100) mg/dL
[2016-12-03] MEDS: HEPARIN/ 0.45% NACL-25,000 UNIT/500 ML 25,000 UNIT/500 ML BAG IV SCH (00:18)
[2016-12-03] MEDS: NACL 0.9% 1000 ML 1,000 ML IV SCH ×3 (00:19→16:17)
[2016-12-03] MEDS: DUONEB 0.5 MG-3 MG/3 ML SOLN IH SCH (01:36)
[2016-12-03 05:41] LABS: Hematocrit 33.7 % (35.5-45.6)
[2016-12-03] MEDS: MORPHINE IV PRN ×4 (06:01→22:32)
[2016-12-03] MEDS ORDERED: PROVENTIL IH PRN (06:28)
--- NOTE | 2016-12-03 09:47 | Progress Note ---
Assessment and Plan Assessment and plan: Acute ischemia left lower ext due to thromboembolus left femoral artery s/p embolectomy and fasciotomy left lower extremity on 12/01/16 by vascular surgery. Continue Heparin drip, Plavix Peripheral vascular disease Coronary artery disease. Stable, Hypertension. Blood pressure stable and metoprolol and lisinopril Hyperlipidemia. Lipitor History Interval history: less pain left leg Hospitalist Physical - Physical exam Narrative exam: Gen: Not in acute distress, HEENT: Normocephalic, atraumatic Neck: supple, no JVD Lungs: Clear to auscultation bilaterally, no wheeze Heart S1-S2 regular, no murmurs, rubs or gallop, Abdomen: soft, non tender,non-distended, normal bowel sounds Ext: Left leg covered with dressing, bandage Neuro: Awake, alert.oriented x 3, no focal neurological signs, Psych: normal mood - Constitutional Vitals: Temp Pulse Resp BP Pulse Ox 98.0 F 91 H 20 140/89 98 12/03/16 08:00 12/03/16 08:00 12/03/16 08:00 12/03/16 08:00 12/03/16 08:00 General appearance: Present: no acute distress Results - Labs CBC & Chem 7: 12/03/16 05:15 12/02/16 05:12 Labs: Laboratory Last Values WBC 11.7 K/mm3 (4.5-11.0) H 12/02/16 05:12 RBC 3.99 M/mm3 (3.65-5.03) 12/02/16 05:12 Hgb 11.0 gm/dl (11.8-15.2) L 12/03/16 05:15 Hct 33.7 % (35.5-45.6) L 12/03/16 05:15 MCV 88 fl (84-94) 12/02/16 05:12 MCH 29 pg (28-32) 12/02/16 05:12 MCHC 33 % (32-34) 12/02/16 05:12 RDW 15.3 % (13.2-15.2) H 12/02/16 05:12 Plt Count 302 K/mm3 (140-440) 12/03/16 05:15 Lymph % (Auto) 15.2 % (13.4-35.0) 12/01/16 16:04 Carter % (Auto) 10.9 % (0.0-7.3) H 12/01/16 16:04 Eos % (Auto) 1.9 % (0.0-4.3) 12/01/16 16:04 Baso % (Auto) 1.2 % (0.0-1.8) 12/01/16 16:04 Lymph # 1.4 K/mm3 (1.2-5.4) 12/01/16 16:04 Carter # 1.0 K/mm3 (0.0-0.8) H 12/01/16 16:04 Eos # 0.2 K/mm3 (0.0-0.4) 12/01/16 16:04 Baso # 0.1 K/mm3 (0.0-0.1) 12/01/16 16:04 Seg Neutrophils % 70.8 % (40.0-70.0) H 12/01/16 16:04 Seg Neutrophils # 6.6 K/mm3 (1.8-7.7) 12/01/16 16:04 PT 14.7 Sec. (12.2-14.9) 12/01/16 19:29 INR 1.16 (0.87-1.13) H 12/01/16 19:29 APTT 63.6 Sec. (24.2-36.6) H* 12/01/16 19:29 Heparin Anti-Xa Level 0.23 U.I./ml (0.3-0.7) L 12/03/16 05:15 Sodium 137 mmol/L (137-145) 12/02/16 05:12 Potassium 4.3 mmol/L (3.6-5.0) 12/02/16 05:12 Chloride 101.5 mmol/L (98-107) 12/02/16 05:12 Carbon Dioxide 22 mmol/L (22-30) 12/02/16 05:12 Anion Gap 18 mmol/L 12/02/16 05:12 BUN 13 mg/dL (9-20) 12/02/16 05:12 Creatinine 0.6 mg/dL (0.8-1.5) L 12/02/16 05:12 Estimated GFR > 60 ml/min 12/02/16 05:12 BUN/Creatinine Ratio 21.66 % 12/02/16 05:12 Glucose 179 mg/dL (75-100) H 12/02/16 05:12 Calcium 8.4 mg/dL (8.4-10.2) 12/02/16 05:12 Blood Type B POSITIVE 12/01/16 16:04 Antibody Screen Negative 12/01/16 16:04
[2016-12-03] MEDS: NORCO 5/325 PO PRN ×2 (10:05→10:07)
[2016-12-03] MEDS: PEPCID PO SCH ×2 (10:09→22:31)
[2016-12-03] MEDS: FOLVITE PO SCH (10:09)
[2016-12-03] MEDS: VITAMIN B-1 PO SCH (10:09)
[2016-12-03] MEDS: PLAVIX PO SCH (10:10)
[2016-12-03] MEDS: ZESTRIL PO SCH (10:11)
[2016-12-03] MEDS: LOPRESSOR PO SCH ×2 (10:12→22:31)
--- NOTE | 2016-12-03 10:19 | Consultation ---
History of Present Illness Consult date: 12/02/16 Consult reason: known to you (Patient was recently discharged home after presentation with chest pain,presents with left leg ischemia.) Past History Past Medical History: CAD, hyperlipidemia, stroke, other Past Surgical History: Other (stent) Social history: smoking (smoked for 47 years) Family history: hypertension Medications and Allergies Allergies Allergy/AdvReac Type Severity Reaction Status Date / Time No Known Allergies Allergy Unverified 11/27/15 12:06 Home Medications Medication Instructions Recorded Confirmed Last Taken Type Acetaminophen/Codeine [Tylenol 1 tab PO Q6H PRN #15 tab 11/27/15 11/24/16 Unknown Rx /Codeine # 3 tab] Aspirin EC [Aspirin Enteric Coated 325 mg PO QDAY #30 tablet 11/29/16 Unknown Rx TAB] AtorvaSTATin [Lipitor] 40 mg PO DAILY #30 tablet 11/29/16 Unknown Rx Clopidogrel [Plavix] 75 mg PO QDAY #30 tablet 11/29/16 Unknown Rx Famotidine [Pepcid] 20 mg PO BID #60 tablet 11/29/16 Unknown Rx Folic Acid [Folvite] 1 mg PO QDAY #30 tablet 11/29/16 Unknown Rx Lisinopril [Zestril TAB] 10 mg PO QDAY #30 tablet 11/29/16 Unknown Rx Metoprolol [Lopressor TAB] 25 mg PO BID #30 tablet 11/29/16 Unknown Rx Nitroglycerin [Nitrostat] 0.4 mg SL .Q5MIN PRN #30 tablet 11/29/16 Unknown Rx Thiamine [Vitamin B-1] 100 mg PO QDAY #30 tablet 11/29/16 Unknown Rx Active Meds: Active Medications Acetaminophen/Hydrocodone Bitart ([place] 5/325) 1 each PO Q4H PRN PRN Reason: Pain, Moderate (4-6) Last Admin: 12/02/16 00:15 Dose: 1 each Acetaminophen/Hydrocodone Bitart ([place] 5/325) 2 each PO Q4H PRN PRN Reason: Pain , Severe (7-10) Last Admin: 12/03/16 10:07 Dose: 2 each Al Hydrox/Mg Hydrox/Simethicone (Alum-Mag Hydrox-Simeth [id number]/5ml) 30 ml PO Q4H PRN PRN Reason: Indigestion Albuterol (Proventil) 2.5 mg IH Q4HRT PRN PRN Reason: Shortness Of Breath Atorvastatin Calcium (Lipitor) 40 mg PO DAILY [facility] Last Admin: 12/03/16 10:09 Dose: 40 mg Bisacodyl (Dulcolax) 10 mg [place] QDAY PRN PRN Reason: constipation unrelieved by MOM Clopidogrel Bisulfate (Plavix) 75 mg PO QDAY [facility] Last Admin: 12/03/16 10:10 Dose: 75 mg Famotidine (Pepcid) 20 mg PO BID [facility] Last Admin: 12/03/16 10:09 Dose: 20 mg Folic Acid (Folvite) 1 mg PO QDAY [facility] Last Admin: 12/03/16 10:09 Dose: 1 mg Hydromorphone HCl (Dilaudid) 0.5 mg IV Q10MIN PRN PRN Reason: Pain , Severe (7-10) Stop: 12/04/16 16:46 Last Admin: 12/02/16 00:05 Dose: 0.5 mg Sodium Chloride (Nacl 0.9% 1000 Ml) 1,000 mls @ 75 mls/hr IV DIRECT SHAQ Last Admin: 12/03/16 00:19 Dose: 75 mls/hr Heparin Sodium/Sodium Chloride (Heparin/ 0.45% Nacl-25,000 Unit/500 Ml) 25,000 unit in 500 mls @ 20 mls/hr IV TITR SHAQ; 1,000 UNITS/HR PRN Reason: Protocol Last Titration: 12/03/16 06:04 Dose: 1,050 units/hr, 21 mls/hr Lisinopril (Zestril) 10 mg PO QDAY [facility] Last Admin: 12/03/16 10:11 Dose: 10 mg Magnesium Hydroxide (Milk Of Magnesia) 30 ml PO Q4H PRN PRN Reason: Constipation Metoprolol Tartrate (Lopressor) 25 mg PO BID [facility] Last Admin: 12/03/16 10:12 Dose: 25 mg Morphine Sulfate (Morphine) 2 mg IV Q1HR PRN PRN Reason: Pain Last Admin: 12/03/16 06:01 Dose: 2 mg Nitroglycerin (Nitrostat) 0.4 mg SL .Q5MIN PRN PRN Reason: Chest Pain Thiamine HCl (Vitamin B-1) 100 mg PO QDAY [facility] Last Admin: 12/03/16 10:09 Dose: 100 mg Review of Systems Constitutional: no weight loss Cardiovascular: no chest pain Respiratory: no cough with sputum Gastrointestinal: no abdominal pain Rectal: no bleeding Musculoskeletal: other (left leg pain) Integumentary: redness Neurological: weakness Psychiatric: anxiety Endocrine: no palpatations Hematologic/Lymphatic: no easy bleeding Allergic/Immunologic: no urticaria Physical Examination Vital Signs Temp Pulse Resp BP Pulse Ox 98.1 F 99 H 19 107/66 99 12/01/16 14:45 12/01/16 14:45 12/01/16 14:45 12/01/16 14:45 12/01/16 14:45 General appearance: no acute distress HEENT: Positive: Mucus Membranes Moist Neck: Positive: trachea midline Cardiac: Positive: Reg Rate and Rhythm Lungs: Positive: clear to auscultation Neuro: Positive: Weakness (wekness left upper extremity.) Abdomen: Positive: Unremarkable Male genitourinary: Positive: deferred Skin: Positive: Clear Incision: Incision Site (left leg surgical scars in lower part.) Extremities: Absent: edema Results 12/03/16 05:15 12/02/16 05:12 CBC 12/03/16 Range/Units 05:15 Hgb 11.0 L (11.8-15.2) gm/dl Hct 33.7 L (35.5-45.6) % Plt Count 302 (140-440) K/mm3 - EKG Interpretation EKG: sinus rhythm Assessment and Plan acute lower leg ischemia: 12/01/2016>56-year-old gentleman was sent to the hospital by per primary care physician that patient went to see. He was complaining of left leg pain pain for 3 days and was sent to the hospital for acute ischemia. ultrasound showed occlusion at the left common femoral artery. He did not have left femoral pulse, his leg was mottled with absent motor and sensory. 12/01/2016>Preoperative diagnosis: Left leg ischemia Postoperative diagnosis: Same. Operation: Right femoral embolectomy, right leg angiogram with runoff, 4 compartment fasciotomy - Patient Problems (1) HTN (hypertension) Current Visit: Yes Status: Acute Qualifiers: Hypertension type: H (2) CAD (coronary artery disease) Current Visit: No Status: Chronic Qualifiers: Coronary Disease-Associated Artery/Lesion type: C [place] vs. transplanted heart: N Associated angina: A Plan to address problem: Patient denies any chest pain,discharged from hospital only few days ago. Cardiac hx:significant for CAD, s/p WI with subsequent PCI (2 stents total) , , followed by "clot removal" and "defibrillation for bottom chamber quivering" on 11/17/2016, at [facility], HTN, ETOH use ( drinks 12 beers daily) and tobacco use (1PPD x 45 years). He is previously unknown to our practice. He presented with c/o chest pain since 0700AM. s/p C 11/23/2016 -> EF 30 - 35%, patent proximal LAD stent, jailed stent of the proximal diagonal branch which is occluded. Continue medical rx. Patient's cardiac status is stable.No active symptoms,continue present medical therapy.Discussed with patient. (3) Stroke Current Visit: No Status: Chronic Qualifiers: CVA mechanism: C Precerebral and cerebral artery: P Laterality of affected vessel: L Plan to address problem: 11/28/2016>neuro evaluation>56 YO M Hx stroke January 2016 c/b residual R facial droop, mild slurred speech and RUE clumsiness/weakness on ASA, recent instiution of Plavix and was on heparin gtt for NSTEMI who had code stroke called 11/27 for nurse noted L facial droop and pt affirmed slurred speech and LUE weakness. The facial "droop" appears to be volitional smirking with the R lower face creating a pseudo-facial droop on the L. The LUE "weakness" is in fact pain limited motion at the L shoulder. The slurred speech is likely post stroke residual. There is no clear other new focality on neuro exam to suggest acute [employer] process e.g. stroke/TIA. MRI Brain nonacute as reveals only subacute/ chronic L frontal infarct. MRA head neg. CDs neg. TTE no thrombus. LDL 72. Secondary stroke prevention: cont ASA/Plavix/statin as previously Rx.
--- NOTE | 2016-12-03 11:17 | Progress Note ---
Assessment and Plan Postop day 2. Status post left leg embolectomy/fasciotomies. Left leg is well vascularized. Patient is stable with no acute vascular issues at this point Plan: Continue heparin drip. Since the thrombus is most likely a cardiac source the anticoagulation would be per cardiology. Subjective Principal diagnosis: Acute ischemia of the left foot Interval history: The patient is complaining of the left foot numbness. Denies significant foot pain. Denies significant incisional pain. Objective - Exam Narrative Exam: Left foot warm pink with normal capillary refill. Audible dorsalis pedis signal. Both groin and fasciotomy incisions are well approximated, no drainage or erythema noted. - Constitutional Vitals: Vital Signs - 12hr 12/03/16 12/03/16 12/03/16 01:00 06:00 06:25 Temperature 97.9 F 98.5 F Pulse Rate Pulse Rate [ 84 89 Left Radial] Respiratory 20 20 Rate Blood Pressure Blood Pressure 114/58 118/59 [Left Arm] O2 Sat by Pulse 100 98 98 Oximetry 12/03/16 12/03/16 12/03/16 08:00 10:11 10:12 Temperature 98.0 F Pulse Rate 91 H 91 H Pulse Rate [ 91 H Left Radial] Respiratory 20 Rate Blood Pressure 140/89 140/89 Blood Pressure 140/89 [Left Arm] O2 Sat by Pulse 98 Oximetry - Labs CBC & Chem 7: 12/03/16 05:15 12/02/16 05:12 Labs: Abnormal lab results 12/03/16 12/03/16 Range/Units 05:15 05:15 Hgb 11.0 L (11.8-15.2) gm/dl Hct 33.7 L (35.5-45.6) % Heparin Anti-Xa Level 0.23 L (0.3-0.7) U.I./ml
--- NOTE | 2016-12-03 16:02 | Progress Note ---
Assessment and Plan acute lower leg ischemia: 12/01/2016>56-year-old gentleman was sent to the hospital by per primary care physician that patient went to see. He was complaining of left leg pain pain for 3 days and was sent to the hospital for acute ischemia. ultrasound showed occlusion at the left common femoral artery. He did not have left femoral pulse, his leg was mottled with absent motor and sensory. 12/01/2016>Preoperative diagnosis: Left leg ischemia Postoperative diagnosis: Same. Operation: Right femoral embolectomy, right leg angiogram with runoff, 4 compartment fasciotomy - Patient Problems (1) HTN (hypertension) Current Visit: Yes Status: Acute Qualifiers: Hypertension type: H (2) CAD (coronary artery disease) Current Visit: No Status: Chronic Qualifiers: Coronary Disease-Associated Artery/Lesion type: C [place] vs. transplanted heart: N Associated angina: A Plan to address problem: Patient denies any chest pain,discharged from hospital only few days ago. Cardiac hx:significant for CAD, s/p [place] with subsequent PCI (2 stents total) , , followed by "clot removal" and "defibrillation for bottom chamber quivering" on 11/17/2016, at [facility], HTN, ETOH use ( drinks 12 beers daily) and tobacco use (1PPD x 45 years). He is previously unknown to our practice. He presented with c/o chest pain since 0700AM. s/p C 11/23/2016 -> EF 30 - 35%, patent proximal LAD stent, jailed stent of the proximal diagonal branch which is occluded. Continue medical rx. Patient's cardiac status is stable.No active symptoms,continue present medical therapy.Discussed with patient. 12/03/2016>Patient's cardiac status is stable.Rythm is sinus. [place] has embolic event with left leg ischemia,with hx. of recent OK,would anticoagulate for 3 months,will start Warfarin. (3) Stroke Current Visit: No Status: Chronic Qualifiers: CVA mechanism: C Precerebral and cerebral artery: P Laterality of affected vessel: L Subjective Date of service: 12/03/16 Principal diagnosis: Acute ischemia of the left foot Interval history: 's notes noted.denies any chest pain,ruthm is sinus. Objective Vital Signs Temp Pulse Pulse Pulse Resp BP BP 12/03/16 15:22 92 H 12/03/16 15:03 101 H 12/03/16 10:12 91 H 140/89 12/03/16 10:11 91 H 140/89 12/03/16 10:00 12/03/16 08:00 98.0 F 91 H 20 140/89 12/03/16 06:25 12/03/16 06:00 98.5 F 89 20 118/59 12/03/16 01:00 97.9 F 84 20 114/58 12/02/16 22:12 104 H 119/74 12/02/16 20:10 12/02/16 20:00 20 12/02/16 19:00 98.3 F 104 H 19 119/74 12/02/16 18:20 92 H 19 121/73 12/02/16 18:11 95 H 18 121/73 12/02/16 18:10 19 12/02/16 18:00 94 H 20 121/73 12/02/16 17:51 92 H 29 H 128/78 12/02/16 17:41 91 H 20 128/78 12/02/16 17:31 88 21 128/78 12/02/16 17:21 93 H 17 128/78 12/02/16 17:11 95 H 19 128/78 12/02/16 17:00 94 H 20 128/78 12/02/16 16:51 102 H 22 134/82 12/02/16 16:41 101 H 15 134/82 12/02/16 16:31 103 H 17 134/82 12/02/16 16:21 95 H 11 L 134/82 12/02/16 16:11 96 H 14 134/82 12/02/16 16:01 97 H 19 134/82 12/02/16 16:00 98.6 F BP Pulse Ox 12/03/16 15:22 152/89 12/03/16 15:03 12/03/16 10:12 12/03/16 10:11 12/03/16 10:00 99 12/03/16 08:00 98 12/03/16 06:25 98 12/03/16 06:00 98 12/03/16 01:00 100 12/02/16 22:12 12/02/16 20:10 98 12/02/16 20:00 04/15/17 19:00 97 12/02/16 18:20 12/02/16 18:11 98 12/02/16 18:10 12/02/16 18:00 97 12/02/16 17:51 97 12/02/16 17:41 98 12/02/16 17:31 98 12/02/16 17:21 98 12/02/16 17:11 98 12/02/16 17:00 98 12/02/16 16:51 98 12/02/16 16:41 98 12/02/16 16:31 98 12/02/16 16:21 99 12/02/16 16:11 98 12/02/16 16:01 98 12/02/16 16:00 - Physical Examination HEENT: Positive: Mucus Membranes Moist Neck: Positive: trachea midline Lungs: Positive: Normal Breath Sounds Neuro: Positive: Weakness (wekness left upper extremity.) Abdomen: Positive: Unremarkable Skin: Positive: Clear Incision: Incision Site (left leg surgical scars in lower part.) Extremities: Absent: edema - Labs and Meds CBC 12/03/16 Range/Units 05:15 Hgb 11.0 L (11.8-15.2) gm/dl Hct 33.7 L (35.5-45.6) % Plt Count 302 (140-440) K/mm3
[2016-12-03] MEDS ORDERED: COUMADIN PO SCH (17:00)
[2016-12-04] MEDS: HEPARIN/ 0.45% NACL-25,000 UNIT/500 ML 25,000 UNIT/500 ML BAG IV SCH ×2 (01:13→22:32)
[2016-12-04 06:05] LABS: INR 1.01 (0.87-1.13)
[2016-12-04] MEDS: NORCO 5/325 PO PRN ×3 (06:58→16:46)
[2016-12-04] MEDS: NACL 0.9% 1000 ML 1,000 ML IV SCH ×2 (07:00→19:24)
[2016-12-04] MEDS: PEPCID PO SCH ×2 (10:00→22:54)
[2016-12-04] MEDS: FOLVITE PO SCH (10:00)
[2016-12-04] MEDS: PLAVIX PO SCH (10:00)
[2016-12-04] MEDS: VITAMIN B-1 PO SCH (10:00)
[2016-12-04] MEDS: LOPRESSOR PO SCH ×3 (10:00→22:56)
--- NOTE | 2016-12-04 10:39 | Progress Note ---
Assessment and Plan Assessment and plan: Acute ischemia left lower ext due to thromboembolus left femoral artery s/p embolectomy and fasciotomy left lower extremity on 12/01/16 by vascular surgery. Continue Heparin drip, Plavix. Started on Coumadin. Target INR 2-3 Peripheral vascular disease. On Lipitor, Coronary artery disease. Stable. No chest pain. cardiology following, On Lisinopril, Lopressor,Lipitor. Hypertension. Blood pressure stable and metoprolol and lisinopril Hyperlipidemia. Lipitor DVT prophylaxis. On heparin drip, Coumadin History Interval history: Patient with vascular disease had acute left ischemic leg, status post thrombectomy and fascioctomy , less pain left leg Hospitalist Physical - Physical exam Narrative exam: Gen: Not in acute distress, HEENT: Normocephalic, atraumatic Neck: supple, no JVD Lungs: Clear to auscultation bilaterally, no wheeze Heart S1-S2 regular, no murmurs, rubs or gallop, Abdomen: soft, non tender,non-distended, normal bowel sounds Ext: Left leg with surgical wounds on lateral and medial sides, Neuro: Awake, alert.oriented x 3, no focal neurological signs, Psych: normal mood - Constitutional Vitals: Temp Pulse Resp BP Pulse Ox 98.0 F 86 20 140/93 97 12/04/16 08:05 12/04/16 08:05 12/04/16 08:05 12/04/16 08:05 12/04/16 08:05 General appearance: Present: no acute distress Results - Labs CBC & Chem 7: 12/03/16 05:15 12/02/16 05:12 Labs: Laboratory Last Values WBC 11.7 K/mm3 (4.5-11.0) H 12/02/16 05:12 RBC 3.99 M/mm3 (3.65-5.03) 12/02/16 05:12 Hgb 11.0 gm/dl (11.8-15.2) L 12/03/16 05:15 Hct 33.7 % (35.5-45.6) L 12/03/16 05:15 MCV 88 fl (84-94) 12/02/16 05:12 MCH 29 pg (28-32) 12/02/16 05:12 MCHC 33 % (32-34) 12/02/16 05:12 RDW 15.3 % (13.2-15.2) H 12/02/16 05:12 Plt Count 302 K/mm3 (140-440) 12/03/16 05:15 Lymph % (Auto) 15.2 % (13.4-35.0) 12/01/16 16:04 Drew % (Auto) 10.9 % (0.0-7.3) H 12/01/16 16:04 Eos % (Auto) 1.9 % (0.0-4.3) 12/01/16 16:04 Baso % (Auto) 1.2 % (0.0-1.8) 12/01/16 16:04 Lymph # 1.4 K/mm3 (1.2-5.4) 12/01/16 16:04 Drew # 1.0 K/mm3 (0.0-0.8) H 12/01/16 16:04 Eos # 0.2 K/mm3 (0.0-0.4) 12/01/16 16:04 Baso # 0.1 K/mm3 (0.0-0.1) 12/01/16 16:04 Seg Neutrophils % 70.8 % (40.0-70.0) H 12/01/16 16:04 Seg Neutrophils # 6.6 K/mm3 (1.8-7.7) 12/01/16 16:04 PT 13.2 Sec. (12.2-14.9) 12/04/16 05:04 INR 1.01 (0.87-1.13) 12/04/16 05:04 APTT 63.6 Sec. (24.2-36.6) H* 12/01/16 19:29 Heparin Anti-Xa Level 0.13 U.I./ml (0.3-0.7) L 12/04/16 05:28 Sodium 137 mmol/L (137-145) 12/02/16 05:12 Potassium 4.3 mmol/L (3.6-5.0) 12/02/16 05:12 Chloride 101.5 mmol/L (98-107) 12/02/16 05:12 Carbon Dioxide 22 mmol/L (22-30) 12/02/16 05:12 Anion Gap 18 mmol/L 12/02/16 05:12 BUN 13 mg/dL (9-20) 12/02/16 05:12 Creatinine 0.6 mg/dL (0.8-1.5) L 12/02/16 05:12 Estimated GFR > 60 ml/min 12/02/16 05:12 BUN/Creatinine Ratio 21.66 % 12/02/16 05:12 Glucose 179 mg/dL (75-100) H 12/02/16 05:12 Calcium 8.4 mg/dL (8.4-10.2) 12/02/16 05:12 Blood Type B POSITIVE 12/01/16 16:04 Antibody Screen Negative 12/01/16 16:04
--- NOTE | 2016-12-04 11:02 | Progress Note ---
Assessment and Plan Assessment: Acute LLE ischemia 2/2 to thromboembolus left femoral artery, s/p embolectomy and fasciotomy LLE on 12/01/16 by vascular surgery. NSTEMI - s/p [facility] 11/23/2016 -> EF 30 - 35%, patent proximal LAD stent, jailed stent of the proximal diagonal branch occluded. CAD, s/p PCI ICMP HTN Tobacco use / ETOH use - cessation encouraged. H/o CVA Noncompliance with medication regimen Anxiety Plan: Currently stable cardiac status. Cont current medical management, including lipitor, plavix, lopressor, and lisinopril. Hold ASA at this time d/t concurrent use of heparin gtt, coumadin, and plavix. Cont PO coumadin with heparin gtt. D/c heparin gtt once therapeutic INR of 2-3 is achieved. Obtain hematology standpoint. The patient has been seen in conjunction with Dr. James who agrees with the assessment and plan of care. Subjective Date of service: 12/04/16 Principal diagnosis: Acute ischemia of the left foot Interval history: Pt resting comfortably in bed, denies any complaints. VSS. Faint pulse palpated at left DP. LLE incision site oozing noted, Heparin gtt infusing. Objective Last Vital Signs Temp 98.0 F 12/04/16 08:05 Pulse 86 12/04/16 08:05 Resp 20 12/04/16 08:05 BP 140/93 12/04/16 08:05 Pulse Ox 97 12/04/16 08:05 - Physical Examination General: Appears Well, No Apparent Distress HEENT: Positive: EOMI, Normocephaly, Mucus Membranes Moist Neck: Positive: trachea midline Cardiac: Positive: Reg Rate and Rhythm, S1/S2 Lungs: Positive: Normal Exam, clear to auscultation, Normal Breath Sounds Neuro: Positive: Weakness (wekness left upper extremity.) Abdomen: Positive: Unremarkable, Soft, Active Bowel Sounds. Negative: Tender Skin: Positive: Clear, Other (LLE surgical site) Incision: Incision Site (left leg surgical scars in lower part.) Extremities: Present: upper extr. pulses, Other (LLE surgical site noted). Absent: edema - Labs and Meds Coagulation 12/04/16 Range/Units 05:04 PT 13.2 (12.2-14.9) Sec. INR 1.01 (0.87-1.13) - Imaging and Cardiology EKG: report reviewed, image reviewed - Telemetry EKG Rhythm: Sinus Rhythm
[2016-12-04] MEDS: ZESTRIL PO SCH (11:52)
--- NOTE | 2016-12-04 12:53 | Progress Note ---
Assessment and Plan Pt doing well post-op. Not OOB yet. Will consult PT for gait training. On heparin and coumadin. Will need to f/u with our service as an outpt. Card given. Will see again as needed. - Patient Problems (1) Ischemia of left lower extremity Current Visit: Yes Status: Acute (2) Compartment syndrome of left lower extremity Current Visit: Yes Status: Acute Qualifiers: Encounter type: E Subjective Date of service: 12/04/16 Principal diagnosis: Acute ischemia of the left foot Interval history: Pt awake and alert. C/o mild to moderate numbness to LLE. Pain resolved post-op. Objective - Constitutional Vitals: Vital Signs - 12hr 12/04/16 12/04/16 12/04/16 07:00 08:05 10:00 Temperature 98.4 F 98.0 F Pulse Rate 86 Pulse Rate [ 77 86 Left Radial] Respiratory 20 20 Rate Blood Pressure 140/93 Blood Pressure 140/93 [Left Arm] Blood Pressure 119/67 [Right Arm] O2 Sat by Pulse 96 97 Oximetry 12/04/16 11:52 Temperature Pulse Rate 86 Pulse Rate [ Left Radial] Respiratory Rate Blood Pressure 140/93 Blood Pressure [Left Arm] Blood Pressure [Right Arm] O2 Sat by Pulse Oximetry General appearance: Present: no acute distress - EENT Eyes: EOM intact ENT: hearing intact - Neck Neck: supple - Respiratory Respiratory effort: normal Extremities: no ischemia, normal temperature, abnormal (LLE lower leg fasciotomy incisions intact. Min oozing of dark bloody drainage from Medial upper calf incision.) - Neurologic Neurologic: no focal deficits - Psychiatric Psychiatric: appropriate mood/affect, intact judgment & insight, cooperative - Labs CBC & Chem 7: 12/03/16 05:15 12/02/16 05:12 Labs: Abnormal lab results 12/03/16 12/04/16 Range/Units 14:36 05:28 Heparin Anti-Xa Level 0.21 L 0.13 L (0.3-0.7) U.I./ml
[2016-12-04] MEDS: COUMADIN PO SCH (18:57)
[2016-12-04] MEDS ORDERED: HEPARIN 10,000 UNITS/10 ML IV ONE (22:36)
[2016-12-05] MEDS: HEPARIN/ 0.45% NACL-25,000 UNIT/500 ML 25,000 UNIT/500 ML BAG IV SCH ×4 (00:34→18:43)
[2016-12-05 06:15] LABS: Hematocrit 35.8 % (35.5-45.6); Hemoglobin 11.8 gm/dl (11.8-15.2); Mean Corpuscular HGB Conc 33 % (32-34); Mean Corpuscular Hemoglobin 29 pg (28-32); Mean Corpuscular Volume 87 fl (84-94); Platelet Count 336 K/mm3 (140-440); Red Blood Count 4.11 M/mm3 (3.65-5.03); White Blood Count 7.1 K/mm3 (4.5-11.0)
[2016-12-05 06:24] LABS: INR 1.04 (0.87-1.13)
[2016-12-05 06:35] LABS: Anion Gap 17 mmol/L; Blood Urea Nitrogen 8 mg/dL (9-20); Calcium 8.7 mg/dL (8.4-10.2); Carbon Dioxide 24 mmol/L (22-30); Chloride 99.2 mmol/L (98-107); Glucose 96 mg/dL (75-100); Potassium 4.1 mmol/L (3.6-5.0); Sodium 136 mmol/L (137-145)
--- NOTE | 2016-12-05 09:35 | Hem/Onc Consultation ---
History of Present Illness - Reason for Consult Consult date: 12/05/16 - History of Present Illness Patient is a 56-year-old male who has history of hypertension and arthritis whose acute event started end of October. Patient had presented to an outside hospital on 11/16/2016 with evidence of chest pain and was found to have CO. He had 2 stents placed which was followed by clot removal and defibrillation for bottom chamber quivering on 11/17/2016. Following that the patient also presented here with further chest pains evidence of and was found to have ejection fraction of 35% patent proximal LAD, Jailed stent of the proximal diagnosed branch which was occluded. Patient also during that visit had evidence of TIA. Now he presented with left leg numbness and was found to have occlusion of the left common femoral artery. The underwent left femoral embolectomy and fasciotomy. Because of thromboembolic phenomena hematology consult was called to rule out hypercoagulable state. Patient does drink alcohol and smokes cigarettes. He has had a CVA in 2016 2. No significant family history of thromboembolus. Past History Past Medical History: CAD, hyperlipidemia, stroke, other Past Surgical History: Other (stent) Social history: smoking (smoked for 47 years) Family history: hypertension Medications and Allergies Allergies Allergy/AdvReac Type Severity Reaction Status Date / Time No Known Allergies Allergy Unverified 11/27/15 12:06 Home Medications Medication Instructions Recorded Confirmed Last Taken Type Acetaminophen/Codeine [Tylenol 1 tab PO Q6H PRN #15 tab 11/27/15 12/04/16 1 Day Ago Rx /Codeine # 3 tab] Aspirin EC [Aspirin Enteric Coated 325 mg PO QDAY #30 tablet 11/29/16 12/04/16 1 Day Ago Rx TAB] AtorvaSTATin [Lipitor] 40 mg PO DAILY #30 tablet 11/29/16 12/04/16 1 Day Ago Rx Clopidogrel [Plavix] 75 mg PO QDAY #30 tablet 11/29/16 12/04/16 1 Day Ago Rx Famotidine [Pepcid] 20 mg PO BID #60 tablet 11/29/16 12/04/16 1 Day Ago Rx Folic Acid [Folvite] 1 mg PO QDAY #30 tablet 11/29/16 12/04/16 1 Day Ago Rx Lisinopril [Zestril TAB] 10 mg PO QDAY #30 tablet 11/29/16 12/04/16 1 Day Ago Rx Metoprolol [Lopressor TAB] 25 mg PO BID #30 tablet 11/29/16 12/04/16 2 Days Ago Rx Nitroglycerin [Nitrostat] 0.4 mg SL .Q5MIN PRN #30 tablet 11/29/16 12/04/16 1 Month Ago Rx Thiamine [Vitamin B-1] 100 mg PO QDAY #30 tablet 11/29/16 12/04/16 1 Day Ago Rx Active Meds: Active Medications Acetaminophen/Hydrocodone Bitart ([place] 5/325) 1 each PO Q4H PRN PRN Reason: Pain, Moderate (4-6) Last Admin: 12/02/16 00:15 Dose: 1 each Acetaminophen/Hydrocodone Bitart ([place] 5/325) 2 each PO Q4H PRN PRN Reason: Pain , Severe (7-10) Last Admin: 12/04/16 16:46 Dose: 2 each Al Hydrox/Mg Hydrox/Simethicone (Alum-Mag Hydrox-Simeth [id number]/5ml) 30 ml PO Q4H PRN PRN Reason: Indigestion Albuterol (Proventil) 2.5 mg IH Q4HRT PRN PRN Reason: Shortness Of Breath Atorvastatin Calcium (Lipitor) 40 mg PO DAILY [facility] Last Admin: 12/04/16 10:00 Dose: 40 mg Bisacodyl (Dulcolax) 10 mg [place] QDAY PRN PRN Reason: constipation unrelieved by MOM Clopidogrel Bisulfate (Plavix) 75 mg PO QDAY [facility] [place] Last Admin: 12/04/16 10:00 Dose: 75 mg Famotidine (Pepcid) 20 mg PO BID [facility] [place] Last Admin: 12/04/16 22:54 Dose: 20 mg Folic Acid (Folvite) 1 mg PO QDAY [facility] [place] Last Admin: 12/04/16 10:00 Dose: 1 mg Sodium Chloride (Nacl 0.9% 1000 Ml) 1,000 mls @ 75 mls/hr IV DIRECT SHAQ Last Admin: 12/04/16 19:24 Dose: 75 mls/hr Heparin Sodium/Sodium Chloride (Heparin/ 0.45% Nacl-25,000 Unit/500 Ml) 25,000 unit in 500 mls @ 20 mls/hr IV TITR SHAQ; 1,000 UNITS/HR PRN Reason: Protocol Last Admin: 12/05/16 07:20 Dose: 1,720 units/hr, 34.4 mls/hr Lisinopril (Zestril) 10 mg PO QDAY [facility] [place] Last Admin: 12/04/16 11:52 Dose: 10 mg Magnesium Hydroxide (Milk Of Magnesia) 30 ml PO Q4H PRN PRN Reason: Constipation Metoprolol Tartrate (Lopressor) 25 mg PO BID [facility] [place] Last Admin: 12/04/16 22:56 Dose: Not Given Morphine Sulfate (Morphine) 2 mg IV Q1HR PRN PRN Reason: Pain Last Admin: 12/03/16 22:32 Dose: 2 mg Nitroglycerin (Nitrostat) 0.4 mg SL .Q5MIN PRN PRN Reason: Chest Pain Thiamine HCl (Vitamin B-1) 100 mg PO QDAY [facility] [place] Last Admin: 12/04/16 10:00 Dose: 100 mg Warfarin Sodium (Coumadin Pharmacy To Dose) 1 each PO PKCONSULT [facility] PRN Reason: Protocol Warfarin Sodium (Coumadin) 7.5 mg PO DAILY@1700 [facility] [place] PRN Reason: Protocol Last Admin: 12/04/16 18:57 Dose: 7.5 mg Exam - Constitutional Vitals: Last Vital Signs Temp 97.6 F 12/05/16 05:09 Pulse 84 12/05/16 05:09 Resp 18 12/05/16 05:09 BP 110/64 12/05/16 05:09 Pulse Ox 94 12/05/16 05:09 General appearance: mild distress Performance status: 3-limited selfcare - Neck Neck: supple - Respiratory Respiratory effort: Positive: normal Respiratory: bilateral: CTA - Cardiovascular Rhythm: regular Extremities: abnormal (left leg status post surgery. No evidence of ischemia currently.) - Gastrointestinal General gastrointestinal: Present: soft Results - Labs lab Results: Laboratory Results - last 24 hr 12/04/16 12/05/16 12/05/16 21:18 05:23 05:23 WBC 7.1 RBC 4.11 Hgb 11.8 Hct 35.8 MCV 87 MCH 29 MCHC 33 RDW 15.0 Plt Count 336 PT 13.5 INR 1.04 Heparin Anti-Xa Level < 0.10 L < 0.10 L Sodium Potassium Chloride Carbon Dioxide Anion Gap BUN Creatinine Estimated GFR BUN/Creatinine Ratio Glucose Calcium 12/05/16 05:23 WBC RBC Hgb Hct MCV MCH MCHC RDW Plt Count PT INR Heparin Anti-Xa Level Sodium 136 L Potassium 4.1 Chloride 99.2 Carbon Dioxide 24 Anion Gap 17 BUN 8 L Creatinine 0.5 L Estimated GFR > 60 BUN/Creatinine Ratio 16.00 Glucose 96 Calcium 8.7 Assessment and Plan 56-year-old male with multiple thromboembolic events [id number]. Rule out hypercoagulable state #2 tobacco abuse next We will order a hypercoagulable workup. We will also order heparin-induced thrombocytopenia assay. Strongly recommended for the patient quit smoking which he is in the process of doing. Patient is on heparin and Coumadin. We will closely monitor labs. goal to get Coumadin to therapeutic range with an INR between 2 and 3.
--- NOTE | 2016-12-05 09:36 | Progress Note ---
Assessment and Plan Assessment and plan: Acute ischemia left lower ext due to thromboembolus left femoral artery s/p embolectomy and fasciotomy left lower extremity on 12/01/16 by vascular surgery. Continue Heparin drip, Plavix. Started on Coumadin. Target INR 2-3 Peripheral vascular disease. On Lipitor Coronary artery disease. Stable. No chest pain. Cardiology following. On Lisinopril, Lopressor, Lipitor. Hypertension. Blood pressure stable and metoprolol and lisinopril Hyperlipidemia. Lipitor Deconditioning. PT evaluation pending. DVT prophylaxis. On heparin drip, Coumadin Disposition. Anticipate discharge summary. History Interval history: No known issues overnight. Hospitalist Physical - Constitutional Vitals: Temp Pulse Resp BP Pulse Ox 97.6 F 84 18 110/64 94 12/05/16 05:09 12/05/16 05:09 12/05/16 05:09 12/05/16 05:09 12/05/16 05:09 General appearance: Present: no acute distress - EENT Eyes: Present: PERRL, EOM intact ENT: hearing intact, clear oral mucosa, dentition normal - Neck Neck: Present: supple, normal ROM - Respiratory Respiratory effort: normal Respiratory: bilateral: CTA - Cardiovascular Rhythm: regular Heart Sounds: Present: S1 & S2. Absent: gallop, rub - Extremities Extremities: no ischemia, No edema, Full ROM - Abdominal General gastrointestinal: soft, non-tender, non-distended, normal bowel sounds - Integumentary Integumentary: Present: clear, warm, dry - Neurologic Neurologic: CNII-XII intact, moves all extremities Results - Labs CBC & Chem 7: 12/05/16 05:23 12/05/16 05:23 Labs: Laboratory Last Values WBC 7.1 K/mm3 (4.5-11.0) 12/05/16 05:23 RBC 4.11 M/mm3 (3.65-5.03) 12/05/16 05:23 Hgb 11.8 gm/dl (11.8-15.2) 12/05/16 05:23 Hct 35.8 % (35.5-45.6) 12/05/16 05:23 MCV 87 fl (84-94) 12/05/16 05:23 MCH 29 pg (28-32) 12/05/16 05:23 MCHC 33 % (32-34) 12/05/16 05:23 RDW 15.0 % (13.2-15.2) 12/05/16 05:23 Plt Count 336 K/mm3 (140-440) 12/05/16 05:23 Lymph % (Auto) 15.2 % (13.4-35.0) 12/01/16 16:04 [place] % (Auto) 10.9 % (0.0-7.3) H 12/01/16 16:04 Eos % (Auto) 1.9 % (0.0-4.3) 12/01/16 16:04 Baso % (Auto) 1.2 % (0.0-1.8) 12/01/16 16:04 Lymph # 1.4 K/mm3 (1.2-5.4) 12/01/16 16:04 [place] # 1.0 K/mm3 (0.0-0.8) H 12/01/16 16:04 Eos # 0.2 K/mm3 (0.0-0.4) 12/01/16 16:04 Baso # 0.1 K/mm3 (0.0-0.1) 12/01/16 16:04 Seg Neutrophils % 70.8 % (40.0-70.0) H 12/01/16 16:04 Seg Neutrophils # 6.6 K/mm3 (1.8-7.7) 12/01/16 16:04 PT 13.5 Sec. (12.2-14.9) 12/05/16 05:23 INR 1.04 (0.87-1.13) 12/05/16 05:23 APTT 63.6 Sec. (24.2-36.6) H* 12/01/16 19:29 Heparin Anti-Xa Level < 0.10 U.I./ml (0.3-0.7) L 12/05/16 05:23 Sodium 136 mmol/L (137-145) L 12/05/16 05:23 Potassium 4.1 mmol/L (3.6-5.0) 12/05/16 05:23 Chloride 99.2 mmol/L (98-107) 12/05/16 05:23 Carbon Dioxide 24 mmol/L (22-30) 12/05/16 05:23 Anion Gap 17 mmol/L 12/05/16 05:23 BUN 8 mg/dL (9-20) L 12/05/16 05:23 Creatinine 0.5 mg/dL (0.8-1.5) L 12/05/16 05:23 Estimated GFR > 60 ml/min 12/05/16 05:23 BUN/Creatinine Ratio 16.00 % 12/05/16 05:23 Glucose 96 mg/dL (75-100) 12/05/16 05:23 Calcium 8.7 mg/dL (8.4-10.2) 12/05/16 05:23 Blood Type B POSITIVE 12/01/16 16:04 Antibody Screen Negative 12/01/16 16:04
[2016-12-05] MEDS: PLAVIX PO SCH (09:38)
[2016-12-05] MEDS: FOLVITE PO SCH (09:38)
[2016-12-05] MEDS: PEPCID PO SCH ×2 (09:39→21:08)
[2016-12-05] MEDS: VITAMIN B-1 PO SCH (09:39)
[2016-12-05] MEDS: ZESTRIL PO SCH (10:00)
[2016-12-05] MEDS: LOPRESSOR PO SCH ×2 (10:00→21:08)
--- NOTE | 2016-12-05 10:29 | Progress Note ---
Assessment and Plan Assessment: Acute LLE ischemia 2/2 to thromboembolus left femoral artery, s/p embolectomy and fasciotomy LLE on 12/01/16 by vascular surgery. NSTEMI - s/p [facility] 11/23/2016 -> EF 30 - 35%, patent proximal LAD stent, jailed stent of the proximal diagonal branch occluded. CAD, s/p PCI ICMP HTN Tobacco use / ETOH use - cessation encouraged. H/o CVA Noncompliance with medication regimen Anxiety Plan: Currently stable cardiac status. Cont current medical management, including lipitor, plavix, lopressor, and lisinopril. Hold ASA at this time d/t concurrent use of heparin gtt, coumadin, and plavix. Cont PO coumadin with heparin gtt. D/c heparin gtt once therapeutic INR of 2-3 is achieved. Hematology consultation noted and appreciated - hypercoagulable workup and heparin-induced thrombocytopenia assay ordered. The patient has been seen in conjunction with Dr. James who agrees with the assessment and plan of care. Subjective Date of service: 12/05/16 Principal diagnosis: Acute ischemia of the left foot Interval history: Pt resting comfortably in bed, denies any complaints. VSS. LLE incision site oozing has resolved, Heparin gtt infusing. Objective Last Vital Signs Temp 98.7 F 12/05/16 08:40 Pulse 90 12/05/16 08:40 Resp 16 12/05/16 08:40 BP 132/81 12/05/16 08:40 Pulse Ox 99 12/05/16 08:40 - Physical Examination General: Appears Well, No Apparent Distress HEENT: Positive: EOMI, Normocephaly, Mucus Membranes Moist Neck: Positive: trachea midline Cardiac: Positive: Reg Rate and Rhythm, S1/S2 Lungs: Positive: Normal Exam, clear to auscultation, Normal Breath Sounds Neuro: Positive: Grossly Intact, Cranial Nerve 2-12 Intact, Weakness (wekness left upper extremity.) Abdomen: Positive: Unremarkable, Soft, Active Bowel Sounds. Negative: Tender Skin: Positive: Clear, Other (LLE surgical site) Incision: Incision Site (left leg surgical sites noted ) Extremities: Present: upper extr. pulses, Other (LLE surgical site noted). Absent: edema - Labs and Meds Coagulation 12/05/16 Range/Units 05:23 PT 13.5 (12.2-14.9) Sec. INR 1.04 (0.87-1.13) CBC 12/05/16 Range/Units 05:23 WBC 7.1 (4.5-11.0) K/mm3 RBC 4.11 (3.65-5.03) M/mm3 Hgb 11.8 (11.8-15.2) gm/dl Hct 35.8 (35.5-45.6) % Plt Count 336 (140-440) K/mm3 Comprehensive Metabolic Panel 12/05/16 Range/Units 05:23 Sodium 136 L (137-145) mmol/L Potassium 4.1 (3.6-5.0) mmol/L Chloride 99.2 (98-107) mmol/L Carbon Dioxide 24 (22-30) mmol/L BUN 8 L (9-20) mg/dL Creatinine 0.5 L (0.8-1.5) mg/dL Glucose 96 (75-100) mg/dL Calcium 8.7 (8.4-10.2) mg/dL - Imaging and Cardiology EKG: report reviewed, image reviewed - Telemetry EKG Rhythm: Sinus Rhythm
--- NOTE | 2016-12-05 11:52 | Admit Criteria Form ---
Admission Criteria Documentation: VASCULAR DISEASE GRG Clinical Indications for Admission to Inpatient Care (Place 'X' for any and all applicable criteria): Hospital admission is needed for appropriate care of the patient because of ANY ONE of the following (1)(2)(3)(4): [ ]I. Life-threatening or limb-threatening skin ulcer as indicated by ANY ONE of the following(5): [ ]a) Surrounding cellulitis unresponsive to outpatient treatment [ ]b) Wet gangrene [ ]c) Lymphangitis [ ]d) Bacteremia [ ]II. Gangrene requiring intensity and frequency of care not manageable to outpatient, emergency, or observation level of care(5) [ ]III. Severe pain requiring acute inpatient management [ ]IV. Interventional revascularization (eg, surgery, thrombolysis) needed (eg , critical limb ischemia)(21) [ ]V. Urgent inpatient IV anticoagulation needed due to ALL of the following: [ ]a) Temporary subtherapeutic anticoagulation unacceptable because of high risk of short-term venous or arterial thromboembolism due to ANY ONE of the following(7)(8)(9): [ ]i) Venous thromboembolism within the past 12 months [ ]ii) Underlying malignancy [ ]iii) Patient with mechanical cardiac valve(10)(11) [ ]iv) Underlying hypercoagulable state (eg, protein C or protein S deficiency, antithrombin deficiency, antiphospholipid antibodies) [ ]v) Patient at high risk of thromboembolism (eg, status post orthopedic surgery, history of recurrent venous thromboembolism) [ ]vi) Atrial fibrillation with rheumatic valvular heart disease [ ]vii) Atrial fibrillation with 3 or MORE of the following : [ ]1) Congestive heart failure [ ]2) Hypertension [ ]3) Age 65 years or older [ ]4) Diabetes mellitus [ ]5) History of thromboembolism (eg, stroke, TIA , or systemic embolization) more than 3 months ago [ ]6) Female gender [ ]b) Contraindications to outpatient use of "bridging" agent or alternative oral anticoagulant as indicated by ALL of the following: [ ]i) Contraindication to outpatient use of low-molecular -weight heparin as "bridging" agent as indicated by ANY ONE of the following(8) : [ ]1) Documented current or history of heparin- induced thrombocytopenia(12) [ ]2) Severe thrombocytopenia (eg, platelet count less than 50,000/mm3 (50 x109/L)) [ ]3) Documented allergy to heparin, low- molecular-weight heparin, or pork products [ ]4) Renal failure (creatinine clearance < 30 mL /min/1.73m2 (0.50 mL/sec/1.73m2) or on dialysis) [ ]5) Inability to manage self-injection (eg, by patient, caregiver, or visiting nurse) [ ]ii) Contraindication to outpatient use of fondaparinux as "bridging" agent as indicated by ANY ONE of the following(13)(14)(15)(16): [ ]1) Severe thrombocytopenia (eg, platelet count less than 50,000/mm3 (50 x109/L)) [ ]2) Hypersensitivity to fondaparinux, related drugs, or product components [ ]3) Renal failure (creatinine clearance less than 30 mL/min/1.73m2 (0.50 mL/sec/1.73m2) or on dialysis) [ ]4) Inability to manage self-injection (eg, by patient, caregiver, or visiting nurse) [ ]iii) Oral direct thrombin inhibitor (eg, dabigatran) or oral coagulation factor Xa inhibitor (eg, rivaroxaban) not appropriate as oral anticoagulation (eg, indication not appropriate) or contraindicated (eg, hypersensitivity, renal failure)(13)(16)(17)(18)(19)(20) [X]. Suspected severe acute ischemia due to peripheral vascular disease as indicated by ANY ONE of the following(5)(6): [ ]a) Tissue necrosis [X]b) Severe pain [ ]c) Acute pulselessness [ ]d) Other evidence of acute severe ischemia (eg, lactic acidosis , motor dysfunction) [ ]VII. Acute or newly diagnosed major vessel (eg, aorta) dissection, rupture, or leakage(5)(6)(22)(23) [ ]VIII.Vascular Disease and ALL of the following: [ ]a) Symptom or finding for which emergency and observation care have failed or are not considered appropriate (Use General Criteria: Observation Care as appropriate) [ ]b) Presence of ANY ONE of the following: [ ]i) A General Admission Criteria [ ]ii) A Pediatric General Admission Criteria The original [facility] content created by [facility] has been revised. The portions of the content which have been revised are identified through the use of italic text or in bold, and [facility] has neither reviewed nor approved the modified material. All other unmodified content is copyright [facility]. Please see references footnoted in the original [facility] edition 2016 Admission Criteria Met: Yes
[2016-12-05] MEDS: COUMADIN PO SCH (17:46)
[2016-12-05] MEDS: NORCO 5/325 PO PRN (21:08)
[2016-12-06] MEDS: NORCO 5/325 PO PRN (04:19)
[2016-12-06 05:50] LABS: Basophils % (Auto) 1.5 % (0.0-1.8); Eosinophils % (Auto) 2.9 % (0.0-4.3); Hematocrit 37.4 % (35.5-45.6); Mean Corpuscular HGB Conc 32 % (32-34); Mean Corpuscular Hemoglobin 28 pg (28-32); Mean Corpuscular Volume 88 fl (84-94); Platelet Count 389 K/mm3 (140-440); Red Blood Count 4.23 M/mm3 (3.65-5.03); Red Cell Distribution Width 15.6 % (13.2-15.2); White Blood Count 7.5 K/mm3 (4.5-11.0)
[2016-12-06 06:07] LABS: BUN/Creatinine Ratio 14.28; Blood Urea Nitrogen 10 mg/dL (9-20); Calcium 9.2 mg/dL (8.4-10.2); Carbon Dioxide 26 mmol/L (22-30); Glucose 92 mg/dL (75-100)
[2016-12-06 06:08] LABS: Anion Gap 17 mmol/L; Chloride 99.5 mmol/L (98-107); Potassium 4.1 mmol/L (3.6-5.0); Sodium 138 mmol/L (137-145)
[2016-12-06 06:22] LABS: INR 1.32 (0.87-1.13)
[2016-12-06] MEDS: HEPARIN/ 0.45% NACL-25,000 UNIT/500 ML 25,000 UNIT/500 ML BAG IV SCH (09:34)
[2016-12-06] MEDS: FOLVITE PO SCH (09:35)
[2016-12-06] MEDS: PEPCID PO SCH ×2 (09:35→21:59)
[2016-12-06] MEDS: PLAVIX PO SCH (09:35)
[2016-12-06] MEDS: VITAMIN B-1 PO SCH (09:35)
[2016-12-06] MEDS: LOPRESSOR PO SCH ×2 (10:13→22:01)
[2016-12-06] MEDS: ZESTRIL PO SCH (10:14)
--- NOTE | 2016-12-06 10:36 | Progress Note ---
Assessment and Plan Assessment: Acute LLE ischemia 2/2 to thromboembolus left femoral artery, s/p embolectomy and fasciotomy LLE on 12/01/16 by vascular surgery. NSTEMI - s/p [facility] 11/23/2016 -> EF 30 - 35%, patent proximal LAD stent, jailed stent of the proximal diagonal branch occluded. CAD, s/p PCI ICMP HTN Tobacco use / ETOH use - cessation encouraged. H/o CVA Noncompliance with medication regimen Anxiety Plan: Currently stable cardiac status. Cont current medical management, including lipitor, plavix, lopressor, and lisinopril. Hold ASA at this time d/t concurrent use of heparin gtt, coumadin, and plavix. Cont PO coumadin with heparin gtt. D/c heparin gtt once therapeutic INR of 2-3 is achieved. INR 1.32 today. Hematology consultation noted and appreciated - hypercoagulable workup and heparin-induced thrombocytopenia assay ordered. Encourage increased activity/ambulation with PT. Home walker ordered per primary. The patient has been seen in conjunction with Dr. James who agrees with the assessment and plan of care. Subjective Date of service: 12/06/16 Principal diagnosis: Acute ischemia of the left foot Interval history: Pt resting comfortably in bed, denies any complaints. VSS. Heparin gtt infusing. Objective Last Vital Signs Temp 97.2 F L 12/06/16 09:44 Pulse 83 12/06/16 10:14 Resp 18 12/06/16 09:44 BP 132/50 12/06/16 10:14 Pulse Ox 96 12/06/16 09:44 - Physical Examination General: Appears Well, No Apparent Distress HEENT: Positive: EOMI, Normocephaly, Mucus Membranes Moist Neck: Positive: trachea midline Cardiac: Positive: Reg Rate and Rhythm, S1/S2 Lungs: Positive: Normal Exam, clear to auscultation, Normal Breath Sounds Neuro: Positive: Grossly Intact, Cranial Nerve 2-12 Intact, Weakness (wekness left upper extremity.) Abdomen: Positive: Unremarkable, Soft, Active Bowel Sounds. Negative: Tender Skin: Positive: Clear, Other (LLE surgical site) Incision: Incision Site (left leg surgical sites noted ) Extremities: Present: upper extr. pulses, Other (LLE surgical site noted). Absent: edema - Labs and Meds Coagulation 12/06/16 Range/Units 04:52 PT 16.3 H (12.2-14.9) Sec. INR 1.32 H (0.87-1.13) CBC 12/06/16 Range/Units 04:52 WBC 7.5 (4.5-11.0) K/mm3 RBC 4.23 (3.65-5.03) M/mm3 Hgb 12.0 (11.8-15.2) gm/dl Hct 37.4 (35.5-45.6) % Plt Count 389 (140-440) K/mm3 Lymph # 2.4 (1.2-5.4) K/mm3 [place] # 0.7 (0.0-0.8) K/mm3 Eos # 0.2 (0.0-0.4) K/mm3 Baso # 0.1 (0.0-0.1) K/mm3 Comprehensive Metabolic Panel 12/06/16 Range/Units 04:52 Sodium 138 (137-145) mmol/L Potassium 4.1 (3.6-5.0) mmol/L Chloride 99.5 (98-107) mmol/L Carbon Dioxide 26 (22-30) mmol/L BUN 10 (9-20) mg/dL Creatinine 0.7 L (0.8-1.5) mg/dL Glucose 92 (75-100) mg/dL Calcium 9.2 (8.4-10.2) mg/dL - Imaging and Cardiology EKG: report reviewed, image reviewed - Telemetry EKG Rhythm: Sinus Rhythm
--- NOTE | 2016-12-06 11:04 | Progress Note ---
Assessment and Plan Assessment and plan: Acute ischemia left lower ext due to thromboembolus left femoral artery s/p embolectomy and fasciotomy left lower extremity on 12/01/16 by vascular surgery. Continue Heparin drip, Plavix. Started on Coumadin. Target INR 2-3 Peripheral vascular disease. On Lipitor Coronary artery disease. Stable. No chest pain. Cardiology following. On Lisinopril, Lopressor, Lipitor. Ischemic cardiomyopathy History of CVA Hypertension. Blood pressure stable and metoprolol and lisinopril Hyperlipidemia. Lipitor Tobacco use/EtOH use. Cessation encouraged. Deconditioning. PT evaluation. DVT prophylaxis. On heparin drip, Coumadin Disposition. Anticipate discharge soon. History Interval history: No known issues overnight. Hospitalist Physical - Constitutional Vitals: Temp Pulse Resp BP Pulse Ox 97.2 F L 96 H 18 132/50 98 12/06/16 09:44 12/06/16 10:50 12/06/16 10:38 12/06/16 10:14 12/06/16 10:38 General appearance: Present: no acute distress - EENT Eyes: Present: PERRL, EOM intact ENT: hearing intact, clear oral mucosa, dentition normal - Neck Neck: Present: supple, normal ROM - Respiratory Respiratory effort: normal Respiratory: bilateral: CTA - Cardiovascular Rhythm: regular Heart Sounds: Present: S1 & S2. Absent: gallop, rub - Extremities Extremities: no ischemia, No edema, Full ROM - Abdominal General gastrointestinal: soft, non-tender, non-distended, normal bowel sounds - Integumentary Integumentary: Present: clear, warm, dry - Neurologic Neurologic: CNII-XII intact, moves all extremities Results - Labs CBC & Chem 7: 12/06/16 04:52 12/06/16 04:52 Labs: Laboratory Last Values WBC 7.5 K/mm3 (4.5-11.0) 12/06/16 04:52 RBC 4.23 M/mm3 (3.65-5.03) 12/06/16 04:52 Hgb 12.0 gm/dl (11.8-15.2) 12/06/16 04:52 Hct 37.4 % (35.5-45.6) 12/06/16 04:52 MCV 88 fl (84-94) 12/06/16 04:52 MCH 28 pg (28-32) 12/06/16 04:52 MCHC 32 % (32-34) 12/06/16 04:52 RDW 15.6 % (13.2-15.2) H 12/06/16 04:52 Plt Count 389 K/mm3 (140-440) 12/06/16 04:52 Lymph % (Auto) 32.6 % (13.4-35.0) 12/06/16 04:52 [place] % (Auto) 10.0 % (0.0-7.3) H 12/06/16 04:52 Eos % (Auto) 2.9 % (0.0-4.3) 12/06/16 04:52 Baso % (Auto) 1.5 % (0.0-1.8) 12/06/16 04:52 Lymph # 2.4 K/mm3 (1.2-5.4) 12/06/16 04:52 [place] # 0.7 K/mm3 (0.0-0.8) 12/06/16 04:52 Eos # 0.2 K/mm3 (0.0-0.4) 12/06/16 04:52 Baso # 0.1 K/mm3 (0.0-0.1) 12/06/16 04:52 Seg Neutrophils % 53.0 % (40.0-70.0) 12/06/16 04:52 Seg Neutrophils # 4.0 K/mm3 (1.8-7.7) 12/06/16 04:52 PT 16.3 Sec. (12.2-14.9) H 12/06/16 04:52 INR 1.32 (0.87-1.13) H 12/06/16 04:52 APTT 63.6 Sec. (24.2-36.6) H* 12/01/16 19:29 Heparin Anti-Xa Level 0.67 U.I./ml (0.3-0.7) 12/05/16 16:00 Sodium 138 mmol/L (137-145) 12/06/16 04:52 Potassium 4.1 mmol/L (3.6-5.0) 12/06/16 04:52 Chloride 99.5 mmol/L (98-107) 12/06/16 04:52 Carbon Dioxide 26 mmol/L (22-30) 04/19/17 04:52 Anion Gap 17 mmol/L 12/06/16 04:52 BUN 10 mg/dL (9-20) 12/06/16 04:52 Creatinine 0.7 mg/dL (0.8-1.5) L 12/06/16 04:52 Estimated GFR > 60 ml/min 12/06/16 04:52 BUN/Creatinine Ratio 14.28 % 12/06/16 04:52 Glucose 92 mg/dL (75-100) 12/06/16 04:52 Calcium 9.2 mg/dL (8.4-10.2) 12/06/16 04:52 Blood Type B POSITIVE 12/01/16 16:04 Antibody Screen Negative 12/01/16 16:04
[2016-12-06] MEDS: COUMADIN PO SCH (17:27)
[2016-12-06] MEDS: TYLENOL PO PRN (21:59)
[2016-12-07] MEDS: HEPARIN/ 0.45% NACL-25,000 UNIT/500 ML 25,000 UNIT/500 ML BAG IV SCH (03:44)
[2016-12-07] MEDS: TYLENOL PO PRN ×2 (03:47→10:16)
[2016-12-07 04:58] LABS: PTT-LA 59 sec (<=40)
[2016-12-07 06:37] LABS: Hematocrit 36.1 % (35.5-45.6)
[2016-12-07 06:54] LABS: INR 1.56 (0.87-1.13)
[2016-12-07] MEDS: ZESTRIL PO SCH (10:04)
[2016-12-07] MEDS: PEPCID PO SCH (10:04)
[2016-12-07] MEDS: VITAMIN B-1 PO SCH (10:04)
[2016-12-07] MEDS: PLAVIX PO SCH (10:04)
[2016-12-07] MEDS: FOLVITE PO SCH (10:04)
[2016-12-07] MEDS: LOPRESSOR PO SCH (10:05)
[2016-12-07 10:06] VITALS: BP 120/72
--- NOTE | 2016-12-07 10:19 | Event Note ---
Date: 12/07/16 hypercoag w/u in progress hit pending lupus a/coag- continue a/coag
--- NOTE | 2016-12-07 10:22 | Discharge Summary ---
Providers - Providers Date of Admission: 12/01/16 17:11 Date of discharge: 12/07/16 Attending physician: IVY BARTLETT 12/02/16 09:00 Consult to Physician [CONS] Routine Consulting Provider: LUIS M MELENDREZ Reason For Exam: CAD S/P SD Place consult to:: Cardiology Notified:: [facility] Phone number called:: [phone] Was contact made?: Yes If yes, spoke with:: julius Time called:: 09:01 12/04/16 11:05 Consult to Physician [CONS] Routine Consulting Provider: SANDRA KIRAN Reason For Exam: r/o hypercoagulable condition Place consult to:: Dr. Kiran Notified:: office Phone number called:: [phone] Was contact made?: Yes If yes, spoke with:: amber Time called:: 12:08 12/04/16 12:42 Physical Therapy Evaluation and Treat [CONS] Routine Comment: Reason For Exam: Post op gait training. Weight bearing status?: Full wt bearing Primary care physician: [employer] Hospitalization Reason for admission: left leg ischemia Condition: Serious Hospital course: Patient is a 56-year-old male who has history of hypertension and arthritis whose acute event started end of October. Patient had presented to an outside hospital on 11/16/2016 with evidence of chest pain and was found to have SD. He had 2 stents placed which was followed by clot removal and defibrillation for bottom chamber quivering on 11/17/2016. Following that the patient also presented here with further chest pains and underwent LAC all 11/23/2016 and was found to have ejection fraction of 35% patent proximal LAD, the stent of the proximal diagonal branch which was occluded. Patient also during that visit had evidence of TIA. On this admission, the presented with left leg numbness and was found to have occlusion of the left common femoral artery. He underwent left femoral embolectomy and fasciotomy on 12/01/16. Because of thromboembolic phenomena hematology consult was called to rule out hypercoagulable state. Patient does drink alcohol and smokes cigarettes. He has had a CVA in 2016. No significant family history of thromboembolus. Cardiology recommends continuing current medical management including Lipitor, Plavix, Lopressor and lisinopril. Patient currently on heparin drip and Coumadin with an INR 1.52. Also, cardiology recommends discharge with Lovenox bridging and Coumadin until INR therapeutic. Dedicated discharge time 35 minutes. Disposition: DISCHARGED TO HOME OR SELFCARE Time spent for discharge: 35 - Discharge Diagnoses (1) Thromboembolism Status: Acute (2) Compartment syndrome of left lower extremity Status: Acute Qualifiers: Encounter type: E (3) HTN (hypertension) Status: Acute Qualifiers: Hypertension type: H (4) Ischemia of left lower extremity Status: Acute (5) Occlusion of artery of lower extremity Status: Acute (6) NSTEMI (non-ST elevated myocardial infarction) Status: Acute (7) CAD (coronary artery disease) Status: Chronic Qualifiers: Coronary Disease-Associated Artery/Lesion type: C [place] vs. transplanted heart: N Associated angina: A (8) Stroke Status: Chronic Qualifiers: CVA mechanism: C Precerebral and cerebral artery: P Laterality of affected vessel: L Core Measure Documentation - Palliative Care Palliative Care/ Comfort Measures: Not Applicable - Core Measures Any of the following diagnoses?: none Exam - Constitutional Vitals: Temp Pulse Resp BP Pulse Ox 98.6 F 73 20 120/72 98 12/07/16 04:45 12/07/16 10:05 12/07/16 04:47 12/07/16 10:05 12/07/16 04:45 General appearance: Present: no acute distress, well-nourished - EENT Eyes: Present: PERRL ENT: hearing intact, clear oral mucosa - Neck Neck: Present: supple, normal ROM - Respiratory Respiratory effort: normal Respiratory: bilateral: CTA - Cardiovascular Heart Sounds: Present: S1 & S2. Absent: rub, click - Extremities Extremities: pulses symmetrical, No edema Peripheral Pulses: within normal limits - Abdominal General gastrointestinal: Present: soft, non-tender, non-distended, normal bowel sounds Male genitourinary: Present: normal - Integumentary Integumentary: Present: clear, warm, dry - Musculoskeletal Musculoskeletal: gait normal, strength equal bilaterally - Psychiatric Psychiatric: appropriate mood/affect, intact judgment & insight - Neurologic Neurologic: CNII-XII intact, moves all extremities Plan Activity: advance as tolerated Weight Bearing Status: Weight Bear as Tolerated Diet: low fat, low cholesterol, low salt Wound: per your surgeon's advice Special Instructions: home health RN (check INR and assist with lovenox injections) Follow up with: PRIMARY CARE, [Primary Care Provider] - 7 Days LOUIS DOWELL MD [Staff Physician] - 7 Days SANDRA KIRAN MD [Staff Physician] - 7 Days Forms: Warfarin Discharge Instruction Prescriptions: Aspirin EC [Aspirin Enteric Coated TAB] 325 mg PO QDAY #30 tablet AtorvaSTATin [Lipitor] 40 mg PO DAILY #30 tablet Clopidogrel [Plavix] 75 mg PO QDAY #30 tablet Enoxaparin [Lovenox] 70 mg SQ Q12HR #6 syringe Famotidine [Pepcid] 20 mg PO BID #60 tablet Folic Acid [Folvite] 1 mg PO QDAY #30 tablet HYDROcodone/APAP 5-325 [[place] 5-325 mg TAB] 1 each PO Q4H PRN #15 tablet PRN Reason: Pain, Moderate (4-6) Lisinopril [Zestril TAB] 10 mg PO QDAY #30 tablet Metoprolol [Lopressor TAB] 25 mg PO BID #30 tablet Nitroglycerin [Nitrostat] 0.4 mg SL .Q5MIN PRN #30 tablet PRN Reason: Chest Pain Thiamine [Vitamin B-1] 100 mg PO QDAY #30 tablet Warfarin [Coumadin] 7.5 mg PO DAILY@1700 #30 tablet
--- NOTE | 2016-12-07 10:56 | Progress Note ---
Assessment and Plan Assessment: Acute LLE ischemia 2/2 to thromboembolus left femoral artery, s/p embolectomy and fasciotomy LLE on 12/01/16 by vascular surgery. NSTEMI - s/p [facility] 11/23/2016 -> EF 30 - 35%, patent proximal LAD stent, jailed stent of the proximal diagonal branch occluded. CAD, s/p PCI ICMP HTN Tobacco use / ETOH use - cessation encouraged. H/o CVA Noncompliance with medication regimen Anxiety Plan: D/c heparin gtt and convert to SQ lovenox BID. Cont Lovenox for 5 days per hematology recommendation and pt is to follow up on Sunday, 12/11, for INR check and follow-up appt with Dr. Malik. Cont lipitor, plavix, lopressor, and lisinopril. Cont to hold ASA at this time d /t concurrent use of Lovenox, coumadin, and plavix. Consider resuming as OP once lovenox is discontinued. Currently stable cardiac status. Pt may discharge home from cardiology standpoint. Follow up in our [place] office with Dr. Shields on 12/11/2016 @ 2:45PM. The patient has been seen in conjunction with Dr. James who agrees with the assessment and plan of care. Subjective Date of service: 12/07/16 Principal diagnosis: Acute ischemia of the left foot Interval history: Pt resting comfortably in bed, denies any complaints. VSS. Heparin gtt infusing. Objective Last Vital Signs Temp 98.6 F 12/07/16 04:45 Pulse 73 12/07/16 10:05 Resp 20 12/07/16 04:47 BP 120/72 12/07/16 10:05 Pulse Ox 97 12/07/16 10:20 - Physical Examination General: Appears Well, No Apparent Distress HEENT: Positive: EOMI, Normocephaly, Mucus Membranes Moist Neck: Positive: trachea midline Cardiac: Positive: Reg Rate and Rhythm, S1/S2 Lungs: Positive: Normal Exam, clear to auscultation, Normal Breath Sounds Neuro: Positive: Grossly Intact, Cranial Nerve 2-12 Intact, Weakness (wekness left upper extremity.) Abdomen: Positive: Unremarkable, Soft, Active Bowel Sounds. Negative: Tender Skin: Positive: Clear, Other (LLE surgical site) Incision: Incision Site (left leg surgical sites noted ) Extremities: Present: upper extr. pulses, Other (LLE surgical site noted). Absent: edema - Labs and Meds Coagulation 12/07/16 Range/Units 05:57 PT 18.6 H (12.2-14.9) Sec. INR 1.56 H (0.87-1.13) CBC 12/07/16 Range/Units 05:57 Hgb 12.0 (11.8-15.2) gm/dl Hct 36.1 (35.5-45.6) % Plt Count 374 (140-440) K/mm3 - Imaging and Cardiology EKG: report reviewed, image reviewed - Telemetry EKG Rhythm: Sinus Rhythm
[2016-12-07 12:16] LABS: Protein S, Free 104 % normal (57-171); Protein S, Total 97 % (70-140)
--- NOTE | 2016-12-07 13:39 | Hem/Onc Progress Note ---
Assessment and Plan prelim HITneg, at3 mildly low- possibly sec to clotting lupus a/coag- pt continue coumadin and lovenox and will se him op on sunday and ck inr range 2 -3 Subjective Date of service: 12/07/16 Interval history: pt feels fair.to be discharged today Objective - Constitutional Vitals: Last Vital Signs Temp 98.6 F 12/07/16 04:45 Pulse 73 12/07/16 10:05 Resp 20 12/07/16 04:47 BP 120/72 12/07/16 10:05 Pulse Ox 97 12/07/16 10:20 General appearance: no acute distress Performance status: 2- selfcare, ambulatory - Neck Neck: supple - Respiratory Respiratory effort: Positive: normal Respiratory: bilateral: CTA - Cardiovascular Rhythm: regular Extremities: abnormal (no change) - Gastrointestinal General gastrointestinal: Present: soft - Labs Lab Results: Laboratory Results - last 24 hr 12/05/16 12/05/16 12/05/16 10:50 10:50 10:50 Hgb Hct Plt Count PT INR Lupus Anticoagulant see below LA PTT Baseline 59 H Protein C Antigen 91 Free Protein S Total Protein S Antithrombin III Ag 73 L Heparin Anti-Xa Level 12/05/16 12/06/16 12/06/16 10:50 15:36 22:14 Hgb Hct Plt Count PT INR Lupus Anticoagulant LA PTT Baseline Protein C Antigen Free Protein S 104 Total Protein S 97 Antithrombin III Ag Heparin Anti-Xa Level 0.82 H 1.04 H 12/07/16 12/07/16 12/07/16 05:57 05:57 12:24 Hgb 12.0 Hct 36.1 Plt Count 374 PT 18.6 H INR 1.56 H Lupus Anticoagulant LA PTT Baseline Protein C Antigen Free Protein S Total Protein S Antithrombin III Ag Heparin Anti-Xa Level 0.30 0.92 H
[2016-12-07 17:08] LABS: Heparin-Induced Platelet Antib Negative (Negative); Unfractionated Heparin Negative (Negative)
[2016-12-07] MEDS ORDERED: LOVENOX SUB-Q SCH (22:00)
== END 2016-12-07 14:40 | disposition home or self-care (01) | DRG 252 ==
LOC: ED 14:05 → OR 17:10 → CC1 17:11 → 4A 12-02 18:41
PROVIDERS: ADMIT Internal Medicine; ATTEND Hospitalist
PROC: 04CK0ZZ Extirpation of Matter from Right Femoral Artery, Open Approach (ICD-10-PCS; principal; 2016-12-01)
PROC: 0KNS0ZZ Release Right Lower Leg Muscle, Open Approach (ICD-10-PCS; 2016-12-01)
PROC: B41F1ZZ Fluoroscopy of Right Lower Extremity Arteries using Low Osmolar Contrast (ICD-10-PCS; 2016-12-01)
DX: I74.3 Embolism and thrombosis of arteries of the lower extremities (principal); I21.4 Non-ST elevation (NSTEMI) myocardial infarction; M79.A22 Nontraumatic compartment syndrome of left lower extremity; I25.10 Atherosclerotic heart disease of native coronary artery without angina pectoris; I10 Essential (primary) hypertension; I73.9 Peripheral vascular disease, unspecified; M19.90 Unspecified osteoarthritis, unspecified site; E78.5 Hyperlipidemia, unspecified; F17.210 Nicotine dependence, cigarettes, uncomplicated; F41.9 Anxiety disorder, unspecified; I25.5 Ischemic cardiomyopathy; I77.1 Stricture of artery; I25.2 Old myocardial infarction; Z86.73 Personal history of transient ischemic attack (TIA), and cerebral infarction without residual deficits; Z82.49 Family history of ischemic heart disease and other diseases of the circulatory system; Z91.14 Patient's other noncompliance with medication regimen
CPT/HCPCS: 36415; 71010; 75710; 80048; 83516; 85014; 85018; 85025; 85027; 85049; 85210; 85220; 85301; 85305; 85520; 85610; 85613; 85730; 86022; 86850; 86900; 86901; 88304; 93306; 94640; 94760; 96374; 96375; A9270-GY; C1757; J0330; J0690; J1170; J1644; J2250; J2270; J2370; J2405; J2704; J2710; J2920; J3010; J7030; J7040; Q9966

== ENCOUNTER 2016-12-28 10:24 | Emergency (ER) | payer SELFPAY ==
[2016-12-28 11:34] VITALS: BP 108/75
[2016-12-28] MEDS ORDERED: NACL 0.9% 1000 ML 1,000 ML IV ONE (11:35)
[2016-12-28 11:48] LABS: Basophils % (Auto) 0.9 % (0.0-1.8); Eosinophils % (Auto) 5.7 % (0.0-4.3); Hematocrit 35.7 % (35.5-45.6); Hemoglobin 11.9 gm/dl (11.8-15.2); Mean Corpuscular HGB Conc 33 % (32-34); Mean Corpuscular Hemoglobin 29 pg (28-32); Mean Corpuscular Volume 88 fl (84-94); Platelet Count 313 K/mm3 (140-440); Red Blood Count 4.08 M/mm3 (3.65-5.03); Red Cell Distribution Width 15.6 % (13.2-15.2); White Blood Count 9.2 K/mm3 (4.5-11.0)
[2016-12-28 11:58] LABS: INR 2.39 (0.87-1.13)
[2016-12-28 11:59] LABS: Partial Thromboplastin Time 33.7 Sec. (24.2-36.6)
[2016-12-28 12:02] LABS: Chloride 99.4 mmol/L (98-107); Potassium 3.8 mmol/L (3.6-5.0); Sodium 140 mmol/L (137-145)
[2016-12-28 12:58] LABS: Alkaline Phosphatase 97 units/L (35-129)
[2016-12-28 13:39] LABS: Albumin/Globulin Ratio 1.1 %; Anion Gap 18 mmol/L; BUN/Creatinine Ratio 16.66; Blood Urea Nitrogen 10 mg/dL (9-20); Carbon Dioxide 26 mmol/L (22-30); Glucose 74 mg/dL (75-100); Lipase 19 units/L (13-60); Total Protein 7.5 g/dL (6.3-8.2)
[2016-12-28 14:59] LABS: Alanine Aminotransferase 39 units/L (7-56)
--- NOTE | 2016-12-28 19:44 | ED Elopement Review ---
ED Pt Elopement review - Results review Lab results: Laboratory Tests 12/28/16 12/28/16 12/28/16 11:37 11:37 11:37 WBC 9.2 RBC 4.08 Hgb 11.9 Hct 35.7 MCV 88 MCH 29 MCHC 33 RDW 15.6 H Plt Count 313 Lymph % (Auto) 23.2 [place] % (Auto) 8.7 H Eos % (Auto) 5.7 H Baso % (Auto) 0.9 Lymph # 2.1 [place] # 0.8 Eos # 0.5 H Baso # 0.1 Seg Neutrophils % 61.5 Seg Neutrophils # 5.7 PT 26.2 H INR 2.39 H APTT 33.7 Sodium 140 Potassium 3.8 Chloride 99.4 Carbon Dioxide 26 Anion Gap 18 BUN 10 Creatinine 0.6 L Estimated GFR > 60 BUN/Creatinine Ratio 16.66 Glucose 74 L Calcium 9.0 Total Bilirubin 0.30 AST 37 ALT 39 Alkaline Phosphatase 97 Total Protein 7.5 Albumin 4.0 Albumin/Globulin Ratio 1.1 Lipase 19 - Call Back decision Pt Call Back Decision: No action required
== END 2016-12-28 11:38 | disposition left against medical advice (07) ==
LOC: ED 10:24
DX: K92.1 Melena (principal); Z53.21 Procedure and treatment not carried out due to patient leaving prior to being seen by health care provider
CPT/HCPCS: 36415; 80053; 83690; 85025; 85610; 85730

== ENCOUNTER 2017-01-25 06:44 | Day surgery (SDC) | payer SELFPAY ==
[~2017-01-25 06:44] MED LIST: ANCEF/STERILE WATER 2 GM/20 ML 2 GM/20 ML SYRINGE IV NR; NACL 0.9% 1000 ML 1,000 ML IV SCH
[2017-01-25 07:54] LABS: Basophils % (Auto) 0.8 % (0.0-1.8); Eosinophils % (Auto) 4.3 % (0.0-4.3); Hematocrit 36.5 % (35.5-45.6); Hemoglobin 11.8 gm/dl (11.8-15.2); Mean Corpuscular HGB Conc 32 % (32-34); Mean Corpuscular Hemoglobin 28 pg (28-32); Mean Corpuscular Volume 87 fl (84-94); Platelet Count 288 K/mm3 (140-440); Red Blood Count 4.17 M/mm3 (3.65-5.03); Red Cell Distribution Width 15.5 % (13.2-15.2); White Blood Count 8.6 K/mm3 (4.5-11.0)
[2017-01-25] MEDS ORDERED: NACL 0.9% 500 ML 500 ML IV SCH (08:00)
[2017-01-25 08:04] LABS: Anion Gap 16 mmol/L; BUN/Creatinine Ratio 23.33; Blood Urea Nitrogen 14 mg/dL (9-20); Calcium 8.9 mg/dL (8.4-10.2); Carbon Dioxide 26 mmol/L (22-30); Chloride 101.1 mmol/L (98-107); Glucose 75 mg/dL (75-100); Sodium 139 mmol/L (137-145)
[2017-01-25 08:09] LABS: INR 2.08 (0.87-1.13)
[2017-01-25 08:10] LABS: Partial Thromboplastin Time 34.3 Sec. (24.2-36.6)
[2017-01-25] MEDS ORDERED: HEPARIN 10,000 UNITS/10 ML ONE (10:18)
[2017-01-25] MEDS ORDERED: HEPARIN/NS 5000 UNIT/500ML(CATH LAB) 1,000 ML IR ONE (10:18)
[2017-01-25] MEDS ORDERED: ANCEF/STERILE WATER 2 GM/20 ML 2 GM/20 ML SYRINGE IV ONE (10:19)
[2017-01-25] MEDS ORDERED: XYLOCAINE 1%/ EPI 1:100,000 INFILTRATI ONE (10:19)
[2017-01-25] MEDS ORDERED: NACL 0.9% 500 ML 500 ML ONE ×2 (10:20→11:32)
[2017-01-25] MEDS: VERSED ONE ×4 (10:40→11:25)
[2017-01-25] MEDS: SUBLIMAZE ONE ×5 (10:40→11:25)
[2017-01-25] MEDS ORDERED: SUBLIMAZE ONE (11:00)
[2017-01-25] MEDS ORDERED: DILAUDID ONE (11:29)
[2017-01-25 13:37] VITALS: BP 119/75
--- NOTE | 2017-01-25 13:55 | Operative Report ---
Operative Report Operative Report: Procedure: 1. Ultrasound-guided puncture of the right common femoral artery. 2. Distal aortography and bilateral common iliac arteriography. 3. Left external iliac and common femoral arteriography. 4. Left superficial femoral and popliteal arteriography. 5. Left infra-popliteal nonselective arteriography. 6. Selective arteriography of the left anterior tibial artery. 7. Angio-Seal device closure to the right common femoral artery. Date of procedure: 01/25/2017 Physician: Stephani Londono MD Indication: This is a 56-year-old male with a prior history of left iliac acute thrombus development, requiring surgical embolectomy. He was seen in my clinic complaining of left thigh claudication, along with burning sensations in his foot. Procedure: The patient was placed in the supine position on the procedure table and prepped and draped in the usual sterile fashion. A timeout was performed. Local anesthetic was administered. Under continuous ultrasound guidance, the right common femoral artery was punctured with a 21-gauge needle. Through a micropuncture set, a 5 [place] vascular sheath was ultimately placed, through which a J-wire and omni flush catheter were advanced. Through the Omni flush catheter, distal aortography and bilateral common iliac arteriography was performed. The combination of a glide advantage wire and Omni flush catheter was used to cross the bifurcation into the left common iliac artery. Angiography of the left external iliac and common femoral arteries was performed. The flush catheter was then replaced for an 035 [place] Blazer catheter. With this wire and catheter combination, sequential arteriography of the left superficial femoral artery, popliteal artery, infrapopliteal vessels, and pedal vessels was performed. Based on this imaging, the decision was made to place a 6 [place], 45 cm [place] destination sheath. A V18 wire and 035 [place] Blazer catheter were used to cross an area of narrowing in the superficial femoral artery. This narrowing was then predilated with an evercross 4 mm, 80 millimeter balloon. This was then treated with a 6 mm, 60 mm InPACT drug coated balloon. Repeat arteriography of the left superficial femoral artery was performed. A combination of the V18 wire and an 018 [place] Blazer was used to select the left anterior tibial artery, and arteriography was performed. Several attempts were made to cross an occlusion at the mid anterior tibial artery level, but these were unsuccessful. All wires and catheters were removed, and hemostasis was achieved with a 6 [place] Angio-Seal device. Sterile dressings were applied, and the patient was transported off the table in good condition. Findings: The distal aorta and bilateral common iliac arteries are normal in appearance. The left common femoral and external iliac arteries are patent. At the mid superficial femoral artery level, there is a 60% stenosis, which resolved to 0% stenosis after balloon angioplasty. The remainder of the superficial femoral artery is patent. The popliteal artery is patent and normal in appearance. There is mild, 20% narrowing of the tibial peroneal trunk ostium. The proximal posterior tibial and proximal peroneal arteries are all patent. There is an 80 % narrowing at the proximal aspect of the anterior tibial artery. The mid anterior tibial artery is occluded, with no obvious reconstitution distally. The dominant supply to the left foot is the posterior tibial artery, along with collateral supply from the peroneal artery. There is significant narrowing of the posterior tibial artery at the level of the medial malleolus, but the remainder of the foot is well vascularized with collateral vessels. On this study, no definite vasculature supplying the dorsum of the foot was identified. Recommendations: I will follow-up with the patient in 2 weeks, in order to evaluate the benefit angioplasty of the superficial femoral artery has had. If he continues to have burning sensations and pain in his left foot, I will bring him back to the liaison inspection laboratory assistant for pedal revascularization with possible arch reconstruction.
--- NOTE | 2017-01-26 07:26 | Vascular Lab Report ---
MISCELLANEOUS VESSEL IDENTIFICATION: COMMENTS ON THE SCAN: The right common femoral artery was identified and under real-time ultrasound guidance was cannulated. IMPRESSION: Successful ultrasound guided arterial cannulation.
== END 2017-01-25 14:45 | disposition home or self-care (01) ==
LOC: OPU 06:44
PROVIDERS: ATTEND Radiology Diagnostic Radiology
DX: I70.212 Atherosclerosis of native arteries of extremities with intermittent claudication, left leg (principal); I74.5 Embolism and thrombosis of iliac artery; F17.210 Nicotine dependence, cigarettes, uncomplicated; Z86.718 Personal history of other venous thrombosis and embolism; Z86.73 Personal history of transient ischemic attack (TIA), and cerebral infarction without residual deficits; Z88.5 Allergy status to narcotic agent; Z79.899 Other long term (current) drug therapy; Z98.890 Other specified postprocedural states; Z79.01 Long term (current) use of anticoagulants
CPT/HCPCS: 36415; 37224; 75630; 75710; 75774; 76937; 80048; 85025; 85610; 85730; C1725; C1760; C1769; C1887; J0690; J1170; J1644; J2250; J3010; J7040; Q9967

== ENCOUNTER 2017-01-26 13:04 | Emergency (ER) | payer SELFPAY ==
[2017-01-26] MEDS ORDERED: NACL 0.9% 1000 ML 1,000 ML ONE (14:36)
[2017-01-26] MEDS ORDERED: NACL 0.9% 1000 ML 1,000 ML IV ONE (14:50)
[2017-01-26 15:19] LABS: Basophils % (Auto) 0.7 % (0.0-1.8); Eosinophils % (Auto) 1.7 % (0.0-4.3); Hematocrit 34.7 % (35.5-45.6); Mean Corpuscular HGB Conc 32 % (32-34); Mean Corpuscular Hemoglobin 28 pg (28-32); Mean Corpuscular Volume 88 fl (84-94); Platelet Count 295 K/mm3 (140-440); Red Blood Count 3.94 M/mm3 (3.65-5.03); Red Cell Distribution Width 15.4 % (13.2-15.2); White Blood Count 12.2 K/mm3 (4.5-11.0)
[2017-01-26 15:26] LABS: INR 2.43 (0.87-1.13)
[2017-01-26 15:30] LABS: Alanine Aminotransferase 83 units/L (7-56); Albumin 3.6 g/dL (3.9-5); Albumin/Globulin Ratio 0.9 %; Alkaline Phosphatase 107 units/L (35-129); Anion Gap 19 mmol/L; Blood Urea Nitrogen 12 mg/dL (9-20); Carbon Dioxide 26 mmol/L (22-30); Chloride 99.3 mmol/L (98-107); Glucose 107 mg/dL (75-100); Potassium 4.5 mmol/L (3.6-5.0); Sodium 140 mmol/L (137-145); Total Protein 7.8 g/dL (6.3-8.2)
--- NOTE | 2017-01-26 15:32 | Emergency Department Report ---
- General Chief complaint: Altered Mental Status Stated complaint: ALTERED MENTAL STATUS Time Seen by Provider: 01/26/17 14:49 Source: patient Mode of arrival: Stretcher Limitations: No Limitations - History of Present Illness MD Complaint: generalized weakness, lack of energy -: Gradual Location: generalized Severity scale (0 -10): 2 Consistency: constant Improves with: none Worsens with: none Context: recent surgery Associated Symptoms: denies: chest pain, confusion, dark stools, diaphoresis, dysuria - Related Data Home Medications Medication Instructions Recorded Confirmed Last Taken Aspirin EC [Aspirin Enteric Coated 81 mg PO QDAY 01/25/17 01/25/17 01/24/17 TAB] Previous Rx's Medication Instructions Recorded Last Taken Type AtorvaSTATin [Lipitor] 40 mg PO DAILY #30 tablet 12/07/16 01/24/17 Rx Clopidogrel [Plavix] 75 mg PO QDAY #30 tablet 12/07/16 01/24/17 Rx Famotidine [Pepcid] 20 mg PO BID #60 tablet 12/07/16 01/24/17 Rx Folic Acid [Folvite] 1 mg PO QDAY #30 tablet 12/07/16 01/24/17 Rx Lisinopril [Zestril TAB] 10 mg PO QDAY #30 tablet 12/07/16 01/24/17 Rx Metoprolol [Lopressor TAB] 25 mg PO BID #30 tablet 12/07/16 01/24/17 Rx Nitroglycerin [Nitrostat] 0.4 mg SL .Q5MIN PRN #30 tablet 12/07/16 1 Month Ago Rx Thiamine [Vitamin B-1] 100 mg PO QDAY #30 tablet 12/07/16 01/24/17 Rx Warfarin [Coumadin] 7.5 mg PO DAILY@1700 #30 tablet 12/07/16 01/24/17 Rx Pregabalin [Lyrica] 100 mg PO BID #60 capsule 01/25/17 Unknown Rx Allergies Allergy/AdvReac Type Severity Reaction Status Date / Time codeine AdvReac Itching Verified 12/28/16 11:34 ED Review of Systems ROS: Stated complaint: ALTERED MENTAL STATUS Other details as noted in HPI Comment: All other systems reviewed and negative ED Past Medical Hx - Past Medical History Hx Hypertension: Yes Hx CVA: Yes Hx Heart Attack/AMI: Yes (3 IL's since November 14; hx stroke L side weakness) Hx Congestive Heart Failure: No Hx Diabetes: No Hx Deep Vein Thrombosis: Yes Hx GERD: Yes Hx Arthritis: Yes Hx Asthma: No Hx COPD: No Hx HIV: No - Surgical History Hx Coronary Stent: Yes Additional Surgical History: clots removed left leg - Social History Smoking Status: Current Every Day Smoker Substance Use Type: None - Medications Home Medications: Home Medications Medication Instructions Recorded Confirmed Last Taken Type AtorvaSTATin [Lipitor] 40 mg PO DAILY #30 tablet 12/07/16 01/25/17 01/24/17 Rx Clopidogrel [Plavix] 75 mg PO QDAY #30 tablet 12/07/16 01/25/17 01/24/17 Rx Famotidine [Pepcid] 20 mg PO BID #60 tablet 12/07/16 01/25/17 01/24/17 Rx Folic Acid [Folvite] 1 mg PO QDAY #30 tablet 12/07/16 01/25/17 01/24/17 Rx Lisinopril [Zestril TAB] 10 mg PO QDAY #30 tablet 12/07/16 01/25/17 01/24/17 Rx Metoprolol [Lopressor TAB] 25 mg PO BID #30 tablet 12/07/16 01/25/17 01/24/17 Rx Nitroglycerin [Nitrostat] 0.4 mg SL .Q5MIN PRN #30 tablet 12/07/16 01/25/17 1 Month Ago Rx Thiamine [Vitamin B-1] 100 mg PO QDAY #30 tablet 12/07/16 01/25/17 01/24/17 Rx Warfarin [Coumadin] 7.5 mg PO DAILY@1700 #30 tablet 12/07/16 01/25/17 01/24/17 Rx Aspirin EC [Aspirin Enteric Coated 81 mg PO QDAY 01/25/17 01/25/17 01/24/17 History TAB] Pregabalin [Lyrica] 100 mg PO BID #60 capsule 01/25/17 Unknown Rx ED Physical Exam - General Limitations: No Limitations General appearance: alert, in no apparent distress - Head Head exam: Present: atraumatic, normocephalic - Eye Eye exam: Present: normal appearance - ENT ENT exam: Present: normal exam, normal orophraynx, mucous membranes moist - Neck Neck exam: Present: normal inspection - Respiratory Respiratory exam: Present: normal lung sounds bilaterally. Absent: respiratory distress - Cardiovascular Cardiovascular Exam: Present: regular rate, normal rhythm. Absent: systolic murmur, diastolic murmur, rubs, gallop - GI/Abdominal GI/Abdominal exam: Present: soft, normal bowel sounds - Rectal Rectal exam: Present: deferred - Extremities Exam Extremities exam: Present: normal inspection - Back Exam Back exam: Present: normal inspection - Neurological Exam Neurological exam: Present: alert, oriented X3 - Psychiatric Psychiatric exam: Present: normal affect, normal mood - Skin Skin exam: Present: warm, dry, intact, normal color. Absent: rash ED Course Vital Signs 01/26/17 01/26/17 01/26/17 14:27 14:30 14:41 Temperature Pulse Rate 77 76 80 Respiratory 17 14 15 Rate Blood Pressure 86/55 83/54 O2 Sat by Pulse 72 L 100 Oximetry 01/26/17 01/26/17 01/26/17 14:45 14:51 15:01 Temperature 97.9 F Pulse Rate 81 79 82 Respiratory 11 L 14 Rate Blood Pressure 83/54 83/54 83/54 O2 Sat by Pulse 100 100 Oximetry 01/26/17 01/26/17 01/26/17 15:11 15:21 15:31 Temperature Pulse Rate 76 76 73 Respiratory 20 19 13 Rate Blood Pressure 83/54 83/54 83/54 O2 Sat by Pulse 100 100 Oximetry 01/26/17 01/26/17 01/26/17 15:41 15:51 16:30 Temperature Pulse Rate 84 84 83 Respiratory 22 13 18 Rate Blood Pressure 101/67 101/67 113/74 O2 Sat by Pulse 100 96 Oximetry 01/26/17 16:45 Temperature Pulse Rate Respiratory 20 Rate Blood Pressure O2 Sat by Pulse 98 Oximetry ED Medical Decision Making - Lab Data Result diagrams: 01/26/17 14:55 01/26/17 14:55 - EKG Data EKG shows normal: sinus rhythm Rate: normal - EKG Data When compared to previous EKG there are: no significant change Interpretation: no acute changes - Medical Decision Making patient doing well, bp is normal, eating a meal at this time. labs negative , offered admission but refused at this time , wants to go home, Critical care attestation.: If time is entered above; I have spent that time in minutes in the direct care of this critically ill patient, excluding procedure time. ED Disposition Clinical Impression: Dizziness Disposition: DC-01 TO HOME OR SELFCARE Is pt being admited?: No Does the pt Need Aspirin: No Condition: Good Instructions: Dizziness (ED) Referrals: PRIMARY CARE, [Primary Care Provider] - 3-5 Days Time of Disposition: 17:08
--- NOTE | 2017-01-26 16:33 | XRay Report ---
CHEST ONE VIEW INDICATION: Lightheadedness, dizziness. COMPARISON: 12/01/2016. FINDINGS: Portable, single, frontal chest radiograph demonstrates normal cardiomediastinal silhouette. Lungs now clear. Unremarkable bones. Extrinsic EKG leads. CONCLUSION: No acute disease in the chest. Thank you for the opportunity to participate in this patient's care.
--- NOTE | 2017-01-26 16:33 | Cat Scan Report ---
CT HEAD WITHOUT CONTRAST INDICATION: Altered mental status. COMPARISON: 11/27/2016. FINDINGS: Noncontrast head CT demonstrates stable ventricles, sulci, periventricular white matter hypodensities, few small lacunar infarcts and left posterior frontal and parietal old infarcts/ischemia. No definite acute infarct, hemorrhage, mass effect or midline shift. No abnormal extra axial fluid collections. Normal posterior fossa with preserved basilar cisterns. Normal eye globes. Mild rightward nasal septal deviation. Mild bilateral maxillary, sphenoid, ethmoid and left frontoethmoid mucosal thickening. Hypoplastic frontal sinuses, right more than left. Clear mastoid air cells. Atherosclerotic internal and left vertebral artery calcifications. Normal calvarium and scalp. Right external auditory canal debris may be directly visualized. Small radiopaque dental fillings. CONCLUSION: No acute intracranial CT abnormality with various stable findings, as above. Thank you for the opportunity to participate in this patient's care. Altered mental status
[2017-01-26 17:19] VITALS: BP 102/64
== END 2017-01-26 18:57 | disposition home or self-care (01) ==
LOC: ED 13:04
DX: R42 Dizziness and giddiness (principal); I10 Essential (primary) hypertension; I63.9 Cerebral infarction, unspecified; I25.2 Old myocardial infarction; K21.9 Gastro-esophageal reflux disease without esophagitis; M19.90 Unspecified osteoarthritis, unspecified site; F17.200 Nicotine dependence, unspecified, uncomplicated; Z86.718 Personal history of other venous thrombosis and embolism; Z79.82 Long term (current) use of aspirin; Z88.5 Allergy status to narcotic agent; Z79.01 Long term (current) use of anticoagulants
CPT/HCPCS: 36415; 70450; 71010; 80053; 82550; 82553; 84484; 85025; 85610; 96360; 99285; J7030